=== PATIENT | male | born 1965 | race Two or more races ===

== ENCOUNTER 2020-09-24 09:34 | Outpatient (REF) | payer OTHER, SELFPAY | END 2020-09-24 09:35 | disposition home or self-care (01) | LOC: HO.LAB 09:34 | PROVIDERS: Visit Provider Internal Medicine | DX: Z20.822 Contact with and (suspected) exposure to COVID-19 (principal) | CPT/HCPCS: 36415; C9803; U0003; U0005 ==

== ENCOUNTER 2021-01-18 14:00 | Emergency (ER) | payer OTHER, SELFPAY ==
--- NOTE | 2021-01-20 | ECG_ITS ---
Test Reason : CHEST PAIN Blood Pressure : / mmHG Vent. Rate : 089 BPM Atrial Rate : 089 BPM P-R Int : 146 ms QRS Dur : 092 ms QT Int : 354 ms P-R-T Axes : 019 018 -10 degrees QTc Int : 430 ms Normal sinus rhythm Nonspecific T wave abnormality Abnormal ECG Compared to prior EKG, non specific changes slighlty more prominent in lateral leads. Referred By: Dylan Koo Electronically Signed By:JACKIE AGGARWAL
== END 2021-01-18 18:30 | disposition left against medical advice (07) ==
PROVIDERS: Emergency Provider Emergency Medicine; PCP Internal Medicine
DX: R07.9 Chest pain, unspecified (principal); R03.0 Elevated blood-pressure reading, without diagnosis of hypertension
CPT/HCPCS: 93005; 99283

== ENCOUNTER 2021-03-07 08:46 | Outpatient (REF) | payer OTHER, SELFPAY | END 2021-03-07 08:47 | disposition home or self-care (01) | LOC: HO.LAB 08:46 | PROVIDERS: PCP Internal Medicine; Visit Provider Internal Medicine | DX: Z20.822 Contact with and (suspected) exposure to COVID-19 (principal) | CPT/HCPCS: C9803; U0003; U0005 ==

== ENCOUNTER 2021-09-09 08:25 | Outpatient (REF) | payer OTHER, SELFPAY ==
[2021-09-09 08:53] LABS: MANUAL DIFF FLAG NO
[2021-09-09 09:58] LABS: Appearance Urine CLEAR; Color Urine STRAW; Glucose Urine UA >=1000 MG/DL (NEG); Leukocyte Esterase Urine NEG (NEG); Nitrite Urine NEG (NEG); Specific Gravity - Urine 1.015 (1.005-1.025); Urine Blood NEG (NEG); Urine Ketones NEG (NEG); Urine Protein NEG (NEG-TRACE)
[2021-09-09 10:24] LABS: Basophils Percent Auto 0.4 % (0-2); Eosinophils Percent Auto 0.6 % (0-4); Hematocrit 43.6 % (42.0-52.0); Hemoglobin 14.6 g/dl (14.0-18.0); Imm Gran Abs Auto 0.03 X10*3/uL (0.00-0.03); Imm Gran Pct Auto 0.4 % (0.0-0.4); Lymphocytes Absolute Auto 1.8 X10*3/uL (1.2-4.9); Lymphocytes Percent Auto 25.1 % (20-40); Mean Corpuscular HGB Conc 33.5 g/dl (31.0-36.0); Mean Corpuscular Hemoglobin 28.9 pg (27.0-33.0); Mean Corpuscular Volume 86.3 fL (80.0-98.0); Mean Platelet Volume 12.1 fL (9.4-12.4); Monocytes Absolute Auto 0.7 X10*3/uL (0.1-1.2); Monocytes Percent Auto 9.4 % (2-11); Neutrophils Absolute Auto 4.6 x10*3/uL (2.0-8.3); Neutrophils Percent Auto 64.1 % (45-73); Platelet Count 221 X10*3/uL (160-400); Red Blood Count 5.05 X10*6/uL (4.60-5.80); Red Cell Distribution Width 12.5 % (11.0-16.0); White Blood Count 7.1 X10*3/uL (4.8-10.8)
[2021-09-09 11:02] LABS: TSH reflex Free T4 1.69 uIU/mL (0.32-4.0); Vitamin D 25-OH Total 13.2 ng/mL (>30)
[2021-09-09 11:09] LABS: Creatinine Urine 78.55 mg/dL; Microalbum/Creatinine Ratio Ur 24.1 ug/mg cr
[2021-09-09 11:11] LABS: Alanine Aminotransferase 15 U/L (0-40); Albumin Level 4.2 g/dL (3.5-5.0); Alkaline Phosphatase 100 U/L (39-117); Anion Gap 12 (12-20); Aspartate Amino Transferase 13 U/L (5-37); Bilirubin Total 0.4 mg/dL (0.0-1.0); Blood Urea Nitrogen 12 mg/dL (9-16); Calcium 9.3 mg/dL (8.4-10.2); Carbon Dioxide 26 mmol/L (22-29); Chloride 102 mmol/L (96-108); Cholesterol 180 mg/dL; Estimated Glomerular Filt Rate > 60; Glucose Fasting 263 mg/dL (60-99); HDL Cholesterol 34 mg/dL; LDL Cholesterol Calculated 122 mg/dl; Potassium 4.1 mmol/L (3.3-5.1); Sodium 136 mmol/L (135-145); Total Protein 7.5 g/dL (6.5-8.0); Triglycerides 120 mg/dL
[2021-09-09 11:42] LABS: RBC Urine 0 /HPF (0); Squamous Epithelial Cell Urine TRACE /LPF
[2021-09-11 04:22] LABS: C Peptide 1.29 ng/mL (0.80-3.85)
== END 2021-09-09 08:26 | disposition home or self-care (01) ==
LOC: HO.LAB 08:25
PROVIDERS: PCP Internal Medicine; Visit Provider Internal Medicine
DX: E11.65 Type 2 diabetes mellitus with hyperglycemia (principal); N52.1 Erectile dysfunction due to diseases classified elsewhere; I10 Essential (primary) hypertension; E78.00 Pure hypercholesterolemia, unspecified; E78.5 Hyperlipidemia, unspecified; E55.9 Vitamin D deficiency, unspecified; H53.8 Other visual disturbances; M54.32 Sciatica, left side
CPT/HCPCS: 36415; 80053; 80061; 81001; 82043; 82306; 84443; 84681; 85025

== ENCOUNTER → 2021-10-29 12:55 | Outpatient (BNVA) | payer OTHER, SELFPAY | PROVIDERS: PCP Internal Medicine; Visit Provider Internal Medicine Endocrinology, Diabetes & Metabolism | DX: E11.65 Type 2 diabetes mellitus with hyperglycemia (principal); Z79.84 Long term (current) use of oral hypoglycemic drugs | CPT/HCPCS: 82947; 83036; 99202 ==

== ENCOUNTER → 2021-10-30 12:09 | Outpatient (BNVA) | payer OTHER, SELFPAY | PROVIDERS: PCP Internal Medicine; Visit Provider Registered Nurse Diabetes Educator | DX: E11.65 Type 2 diabetes mellitus with hyperglycemia (principal); Z71.89 Other specified counseling | CPT/HCPCS: 99212 ==

== ENCOUNTER 2022-04-14 11:10 | Emergency (ER) | payer OTHER, SELFPAY ==
[2022-04-14 11:13] VITALS: BP 147/95; PULSE 109; RESP 16; TEMP 36.6; O2SAT 97; BMI 26.5
--- NOTE | 2022-04-14 11:48 | ED.GENADULT ---
HPI - General Adult General Chief complaint: General Medical Stated complaint: Cyst? 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 Patient states that over the last 2 days he has had a cyst on the back of his head that seems to be getting worse. Patient denies any dizziness, lightheadedness, abdominal pain, nausea, vomiting, fever, chills, blurry vision, double vision, loss of vision, chest pain, difficulty breathing, shortness of breath, back pain, night sweats, pain with urination, increased urinary frequency, increased urinary urgency, blood in his urine or stool, syncope or a near syncopal episode, recent trauma or falls, bowel incontinence, bladder incontinence, bowel retention, bladder retention, or any other complaints at this time. Onset (ago): day(s) (2) Location: head Radiation: non-radiation Severity: mild Severity scale (1-10): 2 Quality: dull Relieving factors: none Exacerbating factors: none Associated symptoms: denies other symptoms Treatments prior to arrival: none Related Data Previous Rx's Medication Instructions Recorded cholecalciferol (vitamin D3) 50 50 mcg PO DAILY 90 days #90 caps 09/09/21 mcg (2,000 unit) capsule blood sugar diagnostic (FreeStyle #100 ea 10/29/21 Lite Strips) blood-glucose meter (FreeStyle #1 ea 10/29/21 [place] Lite kit) insulin glargine 100 unit/mL (3 20 unit (0.2 mL) subcut DAILY #15 10/29/21 mL) subcutaneous pen (Lantus mL Solostar U-100 Insulin) pen needle, diabetic 32 gauge x #50 ea 10/29/2132 (BD Ultra-Fine [place] Pen Needle) metformin 1,000 mg tablet 1,000 mg PO BID #60 tabs 03/05/22 atorvastatin 10 mg tablet 10 mg PO BEDTIME 90 days #90 tabs 03/09/22 pioglitazone 30 mg tablet 30 mg PO DAILY 90 days #90 tabs 03/09/22 cephalexin 500 mg capsule 500 mg PO Q6H 7 days #28 caps 04/14/22 Allergies Allergy/AdvReac Type Severity Reaction Status Date / Time No Known Allergies Allergy Verified 04/14/22 11:12 [No Known Allergies*] Review of Systems Constitutional: Constitutional: Reports no additional constitutional complaints, Denies chills, Denies fever(s) and Denies night sweats Eyes: Eyes: Reports no additional eye complaints, Denies blurry vision, Denies change in vision, Denies diplopia, Denies eye discharge, Denies loss of vision and Denies eye pain ENT: Denies dizziness Cardiovascular: Cardiovascular: Reports no additional cardiovascular complaints, Denies chest pain, Denies lightheadedness, Denies Loss of Consciousness and Denies dyspnea Respiratory: Respiratory: Reports no additional respiratory complaints and Denies dyspnea Gastrointestinal: Gastrointestinal: Reports no additional gastrointestinal complaints, Denies abdominal pain, Denies melena, Denies hematochezia, Denies change in bowel habits and Denies change in stool character Genitourinary: Genitourinary: Reports no additional male genitourinary complaints, Denies hematuria, Denies oliguria, Denies difficulty urinating, Denies dysuria, Denies urinary frequency, Denies urinary hesitancy, Denies urinary incontinence and Denies urinary urgency Musculoskeletal: Musculoskeletal: Reports no additional musculoskeletal complaints, Denies numbness and Denies tingling Integumentary/Breasts: Comments: growth on the back of his head Neurologic: Denies dizziness, Denies loss of vision, Denies numbness and Denies tingling Psychiatric: Psychiatric: Reports no additional psychiatric complaints Endocrine: Endocrine: Reports no additional endocrine complaints Hematologic/Lymphatic: Hematologic/Lymphatic: Reports no additional hematologic/lymphatic complaints Allergic/Immunologic: Allergic/Immunologic: Reports no additional allergic/immunologic complaints [facility] Past Medical History Attestation statement: The following information was validated with the patient. Source: old records reviewed Medical History Erectile dysfunction associated with type 2 diabetes mellitus Hypovitaminosis D Left sciatic nerve pain Overweight (BMI 25.0-29.9) Pure hypercholesterolemia Type 2 diabetes mellitus with hyperglycemia Surgical History No pertinent past surgical history Family History Family History Brother Diabetes mellitus Sister Diabetes mellitus Mother Diabetes mellitus Father Medical history unknown Social History Social History Housing: House Alcohol intake: current Alcohol intake frequency: a few times a month Alcohol type: beer Patient Tobacco Use Status: Never used Tobacco e-Cigarette/Vaping Use: Never Used Second Hand Smoke Exposure: Yes Advance Directives: No Advance Directives Information Provided: Yes service: No Current occupational status: disabled Physical Exam ED Vital Signs: Vital Signs - 24 hr 04/14/22 11:13 Temperature 97.8 F Pulse Rate 109 H Respiratory Rate 16 Blood Pressure 147/95 H Pulse Oximetry 97 Oxygen Delivery Method Room Air BMI result Body Mass Index 26.5 Const General: cooperative, no acute distress, alert and awake Nutritional Appearance: well nourished Orientation/consciousness: patient oriented x3 Limitations: no limitations HENMT Head: Yes normal to inspection and Yes atraumatic Ears: hearing grossly normal bilaterally and external ears normal General nose exam: Normal external nose present, no nasal discharge noted and no epistaxis Face and sinus: Yes normal facial exam, No abrasion and No laceration Mouth: Normal oral and palatal mucosa present, no drooling and no muffled voice Eyes General: appearance normal, both eyes and all related structures Periorbital: periorbital findings normal Eyelids: Yes eyelids normal Conjunctivae: conjunctivae normal Pupils: Equal, round and reactive pupils present EOM: EOMs intact bilaterally Neck Neck: Yes normal visual inspection, Yes full ROM and Yes no lymphadenopathy Chest Chest palpation & inspection: normal inspection of the chest Resp Effort & Inspection: normal respiratory effort and able to speak in complete sentences Auscultation: clear to auscultation bilaterally Cardio Rate: regular rate Rhythm: regular rhythm GI Inspection: Yes normal to inspection Palpation (GI): Soft to palpation, not firm, nontender and no guarding Skin Other: small, firm growth to the back of his head, no fluctuance, surrounding warmth and erythema Neuro General: patient oriented x3 and moves all extremities Cranial nerves: Yes Equal, round and reactive pupils present Cognition (Neuro): normal cognition Motor exam (neuro): 5/5 motor strength present throughout Sensory Exam: Normal double simultaneous stimulation for sensation Coordination: [id number] test normal Extrem General: Yes normal to inspection, Yes full ROM and Yes capillary refill normal Psych Appearance: grossly normal Mental Status: mental status grossly normal Affect: normal affect Attitude: cooperative Thought process: Normal thought process present Thought content: Normal thought content present Insight: Good insight present (Psych) Medical Decision Making MDM Narrative Medical decision making narrative: Patient is a 56 year old male presenting to the emergency department today with a growth to the back of his head. Patient's physical exam showed a small, firm growth, to the posterior scalp with surrounding erythema and warmth. I explained my physical exam findings to the patient. I answered all questions asked by the patient. I explained to the patient that the abscessed area does not have fluctuance and is not ready to be opened at this time. I recommended the patient apply warm compresses to the area and follow up with a general surgeon. I stressed the importance of the patient taking his medication as prescribed. I stressed the importance of the patient following up with his primary care provider and a general surgeon. I stressed the importance of the patient returning to the emergency department immediately if his symptoms were to worsen or if he were to develop any dizziness, shortness of breath, difficulty breathing, chest pain, blurry vision, loss of vision, nausea, vomiting, abdominal pain, fever, chills, back pain, or any other complaints. Patient verbalized agreement and understanding with this treatment plan and discharge. Differential Diagnosis Differential Diagnosis: abscess Medical Records Medical records reviewed: Yes I reviewed the patient's medical records. Discharge Plan Discharge Clinical Impression: Abscess Patient Disposition: Home, Self-Care Instructions: Abscess (ED) Additional Instructions: Apply warm compresses to the area. Follow up with your primary care provider and a general surgeon. Return to the emergency department immediately if your symptoms worsen or if you develop any dizziness, shortness of breath, difficulty breathing, chest pain, blurry vision, loss of vision, nausea, vomiting, abdominal pain, fever, chills, back pain, or any other complaints. Aplicar compresas tibias en la hai. Steffi un seguimiento con toledo proveedor de atenci?n primaria y un cirujano general. Regrese a la nikkie de emergencias de inmediato si francisco s?ntomas empeoran o si presenta mareos, dificultad para respirar, dolor de pecho, visi?n borrosa, p?rdida de la visi?n, n?useas, v?mitos, dolor abdominal, fiebre, escalofr?os, dolor de espalda o cualquier otras quejas. Prescriptions: New cephalexin 500 mg capsule 500 mg PO Q6H 7 Days Qty: 28 0RF No Action metformin 1,000 mg tablet 1,000 mg PO BID Qty: 60 0RF pioglitazone 30 mg tablet 30 mg PO DAILY 90 Days Qty: 90 1RF atorvastatin 10 mg tablet 10 mg PO BEDTIME 90 Days Qty: 90 1RF cholecalciferol (vitamin D3) 50 mcg (2,000 unit) capsule 50 mcg PO DAILY 90 Days Qty: 90 3RF (DME) blood-glucose meter [FreeStyle [place] Lite] Kit See Rx Instructions .Route Qty: 1 0RF Rx Instructions: As directed (DME) FreeStyle Lite Strips Strip See Rx Instructions .Route Qty: 100 0RF Rx Instructions: As directed 4 X day Lantus Solostar U-100 Insulin 100 unit/mL (3 mL) insulin pen 20 unit subcut DAILY Qty: 15 5RF (DME) pen needle, diabetic [BD Ultra-Fine Mercedez Pen Needle] 32 gauge x 5/32 needle See Rx Instructions .Route Qty: 50 4RF Rx Instructions: As directed Referrals: [facility] [place] [facility] [Provider Group] Mahesh Mari MD [Primary Care Provider] - Interventions: ED Discharge Assessment Last Done: 04/14/22 12:09 Discharge Date/Time: 04/14/22 12:11 Print Language: Portuguese
== END 2022-04-14 12:11 | disposition home or self-care (01) ==
PROVIDERS: Emergency Provider Emergency Medicine; PCP Internal Medicine
DX: L02.811 Cutaneous abscess of head [any part, except face] (principal); Z79.899 Other long term (current) drug therapy
CPT/HCPCS: 99282; 99283

== ENCOUNTER 2022-05-07 20:41 | Inpatient (IN) | payer OTHER, SELFPAY ==
--- NOTE | ~2022-05-07 | CT_ITS ---
EXAMINATION: CT SOFT TISSUE NECK WITH CONTRAST CLINICAL INFORMATION: Abscess tube COMPARISON: None TECHNIQUE: Following the intravenous administration of 60 mL of Omnipaque 350 intravenous contrast, helical imaging was performed in the axial plane with generation of coronal and sagittal reformatted images. This CT examination was performed using dose optimization techniques as appropriate, variously including the following: *Automated exposure control *Adjustment of mA and/or kV according to patient size (this includes techniques or standardized protocols for targeted exams where dose is matched to indication/reason for exam; i.e. extremities or head) *Use of iterative reconstruction technique DLP: 616 mGy-cm FINDINGS: There is a 5.6 x 3.8 x 5 x 1 cm collection within the cutaneous fat mostly superficial to the posterior neck musculature the suboccipital region. The superior most aspect of the trapezius musculature may be involved with associated myositis. There is obscuration of fat planes between the trapezius musculature and the subjacent splenius capitis and semispinalis capitis, however no involvement of the deeper fat planes or musculature. There is surrounding fat stranding and overlying skin thickening. No cervical adenopathy is identified. The parotid glands are homogeneous in attenuation. The submandibular glands are normal. No contour abnormality or pathologic enhancement is seen within the oral cavity or pharyngeal mucosal space. The laryngeal structures are normal. The parapharyngeal fat is preserved. The carotid sheath vasculature opacify normally. No retropharyngeal fluid collection is seen. The thyroid gland is normal. The superior mediastinum is unremarkable. The lung apices are clear. The mastoid air cells and visualized portions of the paranasal sinuses are well-aerated. The temporomandibular joints are normal. No periapical disease is identified. No osseous abnormalities are seen. The imaged portions of the brain parenchyma are unremarkable. CT/CT soft tissue neck w IV con IMPRESSION: * There is a 5.6 cm abscess, centered within the fat of the posterior neck in the midline suboccipital region. There may be myositis of the superior aspect of the bilateral trapezius musculature. Mild fat stranding/edema in the fat planes between the trapezius scaphoid is and semispinalis capitis, however no deeper involvement of the paraspinal musculature. * No evidence of paraspinal or epidural infection.
[2022-05-07 20:44] VITALS: BP 168/100; PULSE 87; RESP 18; TEMP 36.9; O2SAT 97; BMI 25.8
[2022-05-07 21:11] LABS: MANUAL DIFF FLAG NO
[2022-05-07 21:12] LABS: Basophils Percent Auto 0.4 % (0-2); Eosinophils Absolute Auto 0.1 X10*3/uL (0.0-0.4); Eosinophils Percent Auto 0.9 % (0-4); Hematocrit 40.7 % (42.0-52.0); Hemoglobin 14.3 g/dl (14.0-18.0); Imm Gran Abs Auto 0.04 X10*3/uL (0.00-0.03); Imm Gran Pct Auto 0.4 % (0.0-0.4); Lymphocytes Absolute Auto 1.6 X10*3/uL (1.2-4.9); Lymphocytes Percent Auto 17.3 % (20-40); Mean Corpuscular HGB Conc 35.1 g/dl (31.0-36.0); Mean Corpuscular Hemoglobin 29.6 pg (27.0-33.0); Mean Corpuscular Volume 84.3 fL (80.0-98.0); Mean Platelet Volume 11.1 fL (9.4-12.4); Neutrophils Absolute Auto 6.3 x10*3/uL (2.0-8.3); Platelet Count 206 X10*3/uL (160-400); Red Blood Count 4.83 X10*6/uL (4.60-5.80); Red Cell Distribution Width 11.6 % (11.0-16.0)
[2022-05-07 21:26] LABS: Lactic Acid 0.9 mmol/L (0.5-2.0)
[2022-05-07 21:30] LABS: Alanine Aminotransferase 12 U/L (0-40); Albumin Level 3.9 g/dL (3.5-5.0); Alkaline Phosphatase 106 U/L (39-117); Anion Gap 16 (12-20); Aspartate Amino Transferase 12 U/L (5-37); Bilirubin Total 0.5 mg/dL (0.0-1.0); Blood Urea Nitrogen 13 mg/dL (9-16); Calcium 9.4 mg/dL (8.4-10.2); Carbon Dioxide 24 mmol/L (22-29); Chloride 99 mmol/L (96-108); Creatinine Clr Calc Pharmacy 96.7; Estimated Glomerular Filt Rate > 60; Glucose Random 307 mg/dL (60-115); Potassium 3.8 mmol/L (3.3-5.1); Sodium 135 mmol/L (135-145); Total Protein 7.1 g/dL (6.5-8.0)
--- NOTE | 2022-05-07 23:26 | ED_ITS ---
HPI - Skin/Abscess/Foreign Bdy General Chief complaint: Skin/Abscess/Foreign Body Stated complaint: abscess Source: patient Mode of arrival: ambulatory Limitations: language barrier History of Present Illness HPI narrative: A 57-year-old male presents with worsening abscess to the back of his neck. Noted smaller abscess approximately a month and half ago, was evaluated on 04/14/2022 and given antibiotics with poor effect. Patient states that the swelling and pain never went away and has gotten worse. He does report some chills, fatigue, and states that the pain radiates down both sides of his neck into his arms. Does not report fevers, loss of bowel or bladder, denies headache, nausea, vomiting, diarrhea, edema, loss of balance, or changes in vision. MD complaint: abscess/boil Onset (ago): month(s) (2) Tetanus up to date: yes Location: neck Severity: moderate Severity scale (1-10): 7 Quality: aching and constant Pain Consistency: constant Relieving factors: none Exacerbating factors: palpation and movement Context: recent antibiotic Associated symptoms: chills Treatments prior to arrival: antibiotic Related Data Previous Rx's Medication Instructions Recorded cholecalciferol (vitamin D3) 50 50 mcg PO DAILY 90 days #90 caps 09/09/21 mcg (2,000 unit) capsule blood sugar diagnostic (FreeStyle #100 ea 10/29/21 Lite Strips) blood-glucose meter (FreeStyle #1 ea 10/29/21 [place] Lite kit) insulin glargine 100 unit/mL (3 20 unit (0.2 mL) subcut DAILY #15 10/29/21 mL) subcutaneous pen (Lantus mL Solostar U-100 Insulin) pen needle, diabetic 32 gauge x #50 ea 10/29/21 (BD Ultra-Fine [place]ez Pen Needle) metformin 1,000 mg tablet 1,000 mg PO BID #60 tabs 03/05/22 atorvastatin 10 mg tablet 10 mg PO BEDTIME 90 days #90 tabs 03/09/22 pioglitazone 30 mg tablet 30 mg PO DAILY 90 days #90 tabs 03/09/22 cephalexin 500 mg capsule 500 mg PO Q6H 7 days #28 caps 04/14/22 Allergies Allergy/AdvReac Type Severity Reaction Status Date / Time No Known Allergies Allergy Verified 04/14/22 11:12 [No Known Allergies*] Review of Systems Review of Systems: Constitutional: No Fever, No Chills ENT/Mouth: No Ear Pain, No Hoarseness, No sore throat Eyes: No Eye Pain, No Swelling, No Redness, No Foreign Body Cardiovascular: No Chest Pain, No SOB Respiratory: No Cough, No Dyspnea Gastrointestinal: No Nausea, No Vomiting, No Diarrhea, No abdominal Pain Genitourinary: No Dysuria, No Hematuria Musculoskeletal: No joint pain, No Myalgias, No Joint Swelling Skin: Positive abscess to the back of his neck, No Skin lacerations, No rash Neuro: No Weakness, No Numbness, No Paresthesias, No Loss of Consciousness, No Dizziness, No Headache Psych: No Anxiety/Panic, No Depression Heme/Lymph: no easy bruising, no Lymphadenopathy Endocrine: No Polyuria, No Polydipsia Yes all other systems are reviewed and are negative [facility] Past Medical History Attestation statement: The following information was validated with the patient. Source: old records reviewed Medical History Erectile dysfunction associated with type 2 diabetes mellitus Hypovitaminosis D Left sciatic nerve pain Overweight (BMI 25.0-29.9) Pure hypercholesterolemia Type 2 diabetes mellitus with hyperglycemia Surgical History No pertinent past surgical history Family History Family History Brother Diabetes mellitus Sister Diabetes mellitus Mother Diabetes mellitus Father Medical history unknown Social History Social History Housing: House Alcohol intake: former Patient Tobacco Use Status: Never used Tobacco e-Cigarette/Vaping Use: Never Used Second Hand Smoke Exposure: Yes Use of substances other than those prescribed or required for medical reasons: No Advance Directives: Yes Advance Directives Information Provided: No Advance Directives on File: No service: No Current occupational status: disabled Physical Exam Vital Signs: Vital Signs: Last Vital Signs Temp 97.5 F 05/07/22 23:31 Pulse 75 05/08/22 00:55 Resp 18 05/08/22 00:55 BP 140/79 H 05/08/22 00:55 Pulse Ox 98 05/08/22 00:55 O2 Del Method 05/08/22 00:55 BMI result Body Mass Index 25.8 Appearance: Alert. Oriented X3. No acute distress. Eyes: Pupils equal, round and reactive to light. ENT: Pharynx normal. Neck: Normal inspection. Neck supple. CVS: Normal heart rate and rhythm. Pulses normal. Respiratory: No respiratory distress. Breath sounds normal. Abdomen: Soft and nontender. Skin: 10 cm x 7 cm area of warmth, induration erythema to the back of the neck Extremities: No lower extremity edema. Full range of motion. Strength 5/5 to all extremities. Brisk capillary refill. Equal pulses to all extremities. Neuro: No motor deficit. No sensory deficit. Cranial nerves 2-12 intact. Course Course Course Narrative: 57-year-old male presents with 10 cm x 7 cm area of erythema induration and warmth the back of his neck consistent with abscess. He was treated with clindamycin, Flagyl, and Keflex over the past month with poor effect. Patient states that the swelling and pain has increased and has never really resolved. He does have an appointment with Dr. Brock tomorrow, however he feels that his pain and swelling is so intense that he needed evaluation tonight. He states to be fatigued because of the pain and it is difficult for him to sleep. He does not have any focal neuro deficits, has full range of motion to all extremities, and has relatively normal lab panel. Will order CT scan of soft tissue neck, start vancomycin, ceftriaxone, give morphine and Zofran. Patient is an insulin- dependent diabetic. 00:30 lactic acid 1.3, no other indication of organ dysfunction. Patient is not septic and does not fit SIRS. 01:30 CT scan indicates 5.6 cm abscess with myositis. Dr. Roberson will I&D this abscess. Patient will be admitted to hospitalist for admission for cellulitis, myositis, and abscess. Consultations Consultation #1: Bri Time: 01:43 MDM - Skin/Abscess/Foreign Bdy MDM Narrative Medical decision making narrative: Myositis Differential Diagnosis Differential diagnosis: Likely abscess of skin or subcutaneous tissue and cellulitis Medical Records Attestation: I reviewed the patient's medical records. Lab Data Attestation: I reviewed the patient's lab results. Result diagrams: 05/07/22 21:03 05/07/22 21:03 Labs: Lab Results 05/07/22 05/07/22 05/07/22 Range/Units 21:03 21:03 21:03 WBC 9.0 (4.8-10.8) X10*3/uL RBC 4.83 (4.60-5.80) X10*6/uL Hgb 14.3 (14.0-18.0) g/dl Hct 40.7 L (42.0-52.0) % MCV 84.3 (80.0-98.0) fL MCH 29.6 (27.0-33.0) pg MCHC 35.1 (31.0-36.0) g/dl RDW 11.6 (11.0-16.0) % Plt Count 206 (160-400) X10*3/uL MPV 11.1 (9.4-12.4) fL Immature Gran % (Auto) 0.4 (0.0-0.4) % Neut % (Auto) 70.0 (45-73) % Lymph % (Auto) 17.3 L (20-40) % [place] % (Auto) 11.0 (2-11) % Eos % (Auto) 0.9 (0-4) % Baso % (Auto) 0.4 (0-2) % Lymph # (Auto) 1.6 (1.2-4.9) X10*3/uL [place] # (Auto) 1.0 (0.1-1.2) X10*3/uL Eos # (Auto) 0.1 (0.0-0.4) X10*3/uL Baso # (Auto) 0.0 (0.0-0.2) X10*3/uL Abs Immat Gran (auto) 0.04 H (0.00-0.03) X10*3/uL Absolute Neuts (auto) 6.3 (2.0-8.3) x10*3/uL Absolute Nucleated RBC 0.000 (0.0-0.012) X10*3/uL Nucleated RBC % (auto) 0.0 (0.0-0.2) /100WBC PT (10.0-13.1) SEC INR (0.9-1.1) Sodium 135 (135-145) mmol/L Potassium 3.8 (3.3-5.1) mmol/L Chloride 99 (96-108) mmol/L Carbon Dioxide 24 (22-29) mmol/L Anion Gap 16 (12-20) BUN 13 (9-16) mg/dL Creatinine 0.88 (0.5-1.4) mg/dL Estim Creat Clear Calc 96.7 Estimated GFR > 60 Random Glucose 307 H (60-115) mg/dL Lactic Acid 0.9 (0.5-2.0) mmol/L Calcium 9.4 (8.4-10.2) mg/dL Total Bilirubin 0.5 (0.0-1.0) mg/dL AST 12 (5-37) U/L ALT 12 (0-40) U/L Alkaline Phosphatase 106 (39-117) U/L Total Protein 7.1 (6.5-8.0) g/dL Albumin 3.9 (3.5-5.0) g/dL COVID-19 (BRIANNA) (Negative) COVID-19 Clin Com 05/07/22 05/07/22 05/07/22 Range/Units 23:59 23:59 23:59 WBC (4.8-10.8) X10*3/uL RBC (4.60-5.80) X10*6/uL Hgb (14.0-18.0) g/dl Hct (42.0-52.0) % MCV (80.0-98.0) fL MCH (27.0-33.0) pg MCHC (31.0-36.0) g/dl RDW (11.0-16.0) % Plt Count (160-400) X10*3/uL MPV (9.4-12.4) fL Immature Gran % (Auto) (0.0-0.4) % Neut % (Auto) (45-73) % Lymph % (Auto) (20-40) % [place] % (Auto) (2-11) % Eos % (Auto) (0-4) % Baso % (Auto) (0-2) % Lymph # (Auto) (1.2-4.9) X10*3/uL [place] # (Auto) (0.1-1.2) X10*3/uL Eos # (Auto) (0.0-0.4) X10*3/uL Baso # (Auto) (0.0-0.2) X10*3/uL Abs Immat Gran (auto) (0.00-0.03) X10*3/uL Absolute Neuts (auto) (2.0-8.3) x10*3/uL Absolute Nucleated RBC (0.0-0.012) X10*3/uL Nucleated RBC % (auto) (0.0-0.2) /100WBC PT 12.2 (10.0-13.1) SEC INR 1.1 (0.9-1.1) Sodium (135-145) mmol/L Potassium (3.3-5.1) mmol/L Chloride (96-108) mmol/L Carbon Dioxide (22-29) mmol/L Anion Gap (12-20) BUN (9-16) mg/dL Creatinine (0.5-1.4) mg/dL Estim Creat Clear Calc Estimated GFR Random Glucose (60-115) mg/dL Lactic Acid 1.3 (0.5-2.0) mmol/L Calcium (8.4-10.2) mg/dL Total Bilirubin (0.0-1.0) mg/dL AST (5-37) U/L ALT (0-40) U/L Alkaline Phosphatase (39-117) U/L Total Protein (6.5-8.0) g/dL Albumin (3.5-5.0) g/dL COVID-19 (BRIANNA) Negative (Negative) COVID-19 Clin Com See Note Imaging Data CT soft tissue neck: Attestation: I personally reviewed and interpreted this imaging study as follows: Radiologist's impression: FINDINGS: There is a 5.6 x 3.8 x 5 x 1 cm collection within the cutaneous fat mostly superficial to the posterior neck musculature the suboccipital region. The superior most aspect of the trapezius musculature may be involved with associated myositis. There is obscuration of fat planes between the trapezius musculature and the subjacent splenius capitis and semispinalis capitis, however no involvement of the deeper fat planes or musculature. There is surrounding fat stranding and overlying skin thickening. No cervical adenopathy is identified. The parotid glands are homogeneous in attenuation. The submandibular glands are normal. No contour abnormality or pathologic enhancement is seen within the oral cavity or pharyngeal mucosal space. The laryngeal structures are normal. The parapharyngeal fat is preserved. The carotid sheath vasculature opacify normally.? No retropharyngeal fluid collection is seen. The thyroid gland is normal. The superior mediastinum is unremarkable. The lung apices are clear. The mastoid air cells and visualized portions of the paranasal sinuses are well-aerated. The temporomandibular joints are normal. No periapical disease is identified. No osseous abnormalities are seen. The imaged portions of the brain parenchyma are unremarkable. CT/CT soft tissue neck w IV con IMPRESSION: *? There is a 5.6 cm abscess, centered within the fat of the posterior neck in the midline suboccipital region. There may be myositis of the superior aspect of the bilateral trapezius musculature. Mild fat stranding/edema in the fat planes between the trapezius scaphoid is and semispinalis capitis, however no deeper involvement of the paraspinal musculature. *? No evidence of paraspinal or epidural infection. Discharge Plan Discharge Clinical Impression: Abscess of skin or subcutaneous tissue, Cellulitis, Myositis Patient Disposition: Admitted As Inpatient
[2022-05-07 23:31] VITALS: BP 160/79; PULSE 88; RESP 18; TEMP 36.4; O2SAT 95
[2022-05-08] VITALS (9 sets, daily range): BP systolic 123–162; BP diastolic 67–94; PULSE 72–88; RESP 15–19; TEMP 36.2–37.1; O2SAT 94–98
[2022-05-08] MEDS: ondansetron HCL 4 MG/2 ML VIAL IVPUSH (00:12)
[2022-05-08] MEDS: Morphine Sulfate 4 MG/ML CARTRIDGE IVPUSH (00:12)
[2022-05-08 00:17] LABS: Lactic Acid 1.3 mmol/L (0.5-2.0)
[2022-05-08 00:24] LABS: INTERNATIONAL NORM RATIO 1.1 (0.9-1.1); Prothrombin Time 12.2 SEC (10.0-13.1)
[2022-05-08 00:26] LABS: COVID-19 Test Negative (Negative)
[2022-05-08] MEDS: iohexoL 350 MG/ML 100 ML INFUS..BTL 60 ML IV (00:37)
[2022-05-08] MEDS: cefTRIAXone sodium 1 GM in 0.9 % Sodium Chloride 50 ML IV (00:50)
[2022-05-08] MEDS: 0.9 % Sodium Chloride 1,000 ML 999 ML IVCONT (00:50)
[2022-05-08] MEDS: Lidocaine HCl 1 % MPF 2 ML VIAL 4 ML INFILTRATI (01:57)
--- NOTE | 2022-05-08 05:25 | P.HPHOSP_ITS ---
History of Present Illness Date of Service: 05/08/22 Chief Complaint: Swelling on the back of the neck 57-year-old male with a past medical history of hypertension, hyperlipidemia, diabetes presented to the hospital today with a chief complaint of swelling on the back of the neck. Patient mentioned that about 2 months ago he had a head CT and followed by he developed a small 1 cm size swelling which has been gradually increasing in size; came to the hospital about a month ago and was noted to have small hard swelling on the base of the occiput-appears call swelling; patient was given antibiotics and subsequently sent him home. Mentioned that he finished a course of antibiotics but the swelling has been gradually worsening. Denies any fevers. Swelling is currently 7-8 cm in size, causing pain and decreased neck movement. Denies any chest pain or palpitations. Denies any headaches, numbness tingling, blurry visions. Denies any nausea vomiting or diarrhea. Denies any urinary symptoms. Review of all other systems is negative except mentioned above ER course: Per ER team patient noted to have swelling on the base of the occiput, imaging showed abscess-status post I&D in the ER. Given IV antibiotics. Also concern for possible myositis. Admitted to the hospital for further management PMFSH Medical History Erectile dysfunction associated with type 2 diabetes mellitus Hypovitaminosis D Left sciatic nerve pain Overweight (BMI 25.0-29.9) Pure hypercholesterolemia Type 2 diabetes mellitus with hyperglycemia Family History Brother Diabetes mellitus Sister Diabetes mellitus Mother Diabetes mellitus Father Medical history unknown Surgical History No pertinent past surgical history Social History Housing: House Alcohol intake: former Patient Tobacco Use Status: Never used Tobacco e-Cigarette/Vaping Use: Never Used Second Hand Smoke Exposure: Yes Use of substances other than those prescribed or required for medical reasons: No Advance Directives: Yes Advance Directives Information Provided: No Advance Directives on File: No service: No Current occupational status: disabled Meds Allergies Allergy/AdvReac Type Severity Reaction Status Date / Time No Known Allergies Allergy Verified 04/14/22 11:12 [No Known Allergies*] Active Medications: Current Medications Acetaminophen (Acetaminophen 325 Mg Tablet) 650 mg PO Q6H PRN PRN Reason: Pain, Mild (Pain Scale 1-3) Atorvastatin Calcium (Atorvastatin Calcium 10 Mg Tablet) 10 mg PO BEDTIME [facility] Enoxaparin Sodium (Enoxaparin Sodium 40 Mg/0.4 Ml Syringe) 40 mg SUBCUT Q24H [facility] Hydromorphone HCl (Hydromorphone Hcl 0.5 Mg/0.5 Ml Syringe) 0.5 mg IVPUSH Q4H PRN; Protocol PRN Reason: Breakthrough Pain Melatonin (Melatonin 3 Mg Tablet) 6 mg PO BEDTIME PRN PRN Reason: Insomnia Pharmacy Consult (Consult Rx Vancomycin Dosing) 1 each MISCELLANE DAILY PRN PRN Reason: Consult order Pharmacy Consult (Consult Rx Perform Med Rec) 1 each MISCELLANE ONCE STA Stop: 05/08/22 01:46 Senna (Sennosides 8.6 Mg Tablet) 17.2 mg PO BEDTIME PRN PRN Reason: Constipation Sodium Chloride (0.9 % Sodium Chloride Flush 3 Ml Syringe) 3 ml IVFLUSH QSHIFT [facility] Home Medications Medication Instructions Recorded Confirmed Last Taken Type atorvastatin 10 mg tablet 1 tab PO BEDTIME 05/08/22 05/08/22 Unknown History cholecalciferol (vitamin D3) 50 1 cap PO DAILY 05/08/22 05/08/22 Unknown History mcg (2,000 unit) capsule insulin glargine 100 unit/mL (3 20 unit subcut 05/08/22 Unknown History mL) subcutaneous pen (Lantus Solostar U-100 Insulin) metformin 1,000 mg tablet 1 tab PO BID 05/08/22 05/08/22 Unknown History pioglitazone 30 mg tablet 1 tab PO DAILY 05/08/22 05/08/22 Unknown History Physical Exam Vital Signs and Narrative: Vital Signs: Last Vital Signs Temp 98.6 F 05/08/22 03:36 Pulse 72 05/08/22 03:36 Resp 18 05/08/22 03:36 BP 139/67 05/08/22 03:36 Pulse Ox 96 05/08/22 03:36 O2 Del Method 05/08/22 03:36 BMI result Body Mass Index 25.8 Gen: Appears be in no acute distress HEENT: NCAT, Moist mucosa. Noted to have swelling on the base of the occiput as shown in the picture below. Warm and tender. Neck range of motion limited secondary to the swelling/pain. Pulmonary: Vesicular breath sounds, fair air entry CVS: Normal S1-S2 Abdomen: BS+, Soft, Nontender Extremities: Warm well perfused Neuro: Alert and awake. Oriented x3; nonfocal examination. Results Labs CBC and Chem 7: 05/07/22 21:03 05/07/22 21:03 Labs: Laboratory Results - last 24 hr 05/07/22 05/07/22 05/07/22 21:03 21:03 21:03 MCV 84.3 MCH 29.6 MCHC 35.1 RDW 11.6 Plt Count 206 MPV 11.1 Immature Gran % (Auto) 0.4 Neut % (Auto) 70.0 Lymph % (Auto) 17.3 L Hardy % (Auto) 11.0 Eos % (Auto) 0.9 Baso % (Auto) 0.4 Lymph # (Auto) 1.6 Hardy # (Auto) 1.0 Eos # (Auto) 0.1 Baso # (Auto) 0.0 Abs Immat Gran (auto) 0.04 H Absolute Neuts (auto) 6.3 Absolute Nucleated RBC 0.000 Nucleated RBC % (auto) 0.0 PT INR Anion Gap 16 Estim Creat Clear Calc 96.7 Estimated GFR > 60 Random Glucose 307 H Lactic Acid 0.9 Calcium 9.4 Total Bilirubin 0.5 AST 12 ALT 12 Alkaline Phosphatase 106 Total Protein 7.1 Albumin 3.9 COVID-19 ([facility]) COVID-19 Clin Com 05/07/22 05/07/22 05/07/22 23:59 23:59 23:59 MCV MCH MCHC RDW Plt Count MPV Immature Gran % (Auto) Neut % (Auto) Lymph % (Auto) Hardy % (Auto) Eos % (Auto) Baso % (Auto) Lymph # (Auto) Hardy # (Auto) Eos # (Auto) Baso # (Auto) Abs Immat Gran (auto) Absolute Neuts (auto) Absolute Nucleated RBC Nucleated RBC % (auto) PT 12.2 INR 1.1 Anion Gap Estim Creat Clear Calc Estimated GFR Random Glucose Lactic Acid 1.3 Calcium Total Bilirubin AST ALT Alkaline Phosphatase Total Protein Albumin COVID-19 ([facility]ANNA) Negative COVID-19 Clin Com See Note Imaging Radiologist's Impressions: Impressions Soft Tissue Neck CT 05/08/22 00:30 IMPRESSION: * There is a 5.6 cm abscess, centered within the fat of the posterior neck in the midline suboccipital region. There may be myositis of the superior aspect of the bilateral trapezius musculature. Mild fat stranding/edema in the fat planes between the trapezius scaphoid is and semispinalis capitis, however no deeper involvement of the paraspinal musculature. * No evidence of paraspinal or epidural infection. Assessment and Plan (1) Cellulitis: Status: Acute (2) Abscess of skin or subcutaneous tissue: Status: Acute Plan 57-year-old male with a past medical history of hypertension, hyperlipidemia, diabetes presented to the hospital today with a chief complaint of swelling on the back of the neck. Noted to have cellulitis/abscess. Admitted for further management. Cellulitis/abscess on the posterior neck: Imaging showed 5.6 cm abscess status post I&D in the ER. Continue IV vancomycin and Zosyn General surgery consult Will also consult ID -> symptoms started after head cut-unclear tetanus vaccination status. Will await further input from ID. Pain control History of diabetes: Insulin sliding scale DVT prophylaxis: Lovenox Code status: Full code Quality Stroke Does the patient have a stroke diagnosis?: No VTE Prior VTE?: No VTE Risk Level:: Medical - moderate - high VTE Device Contraindication: Treatment Not Indicated VTE Drug Contraindication: N/A - Med Ordered
[2022-05-08] MEDS: Piperacillin Sodium/Tazobactam 3.375 GM in 0.9 % Sodium Chloride 50 ML IV ×4 (06:21→23:16)
[2022-05-08] MEDS: Enoxaparin Sodium 40 MG/0.4 ML SYRINGE SUBCUT (06:21)
[2022-05-08] MEDS: 0.9 % Sodium Chloride Flush 3 ML SYRINGE IVFLUSH ×2 (07:44→21:03)
[2022-05-08 08:31] LABS: Creatinine Clr Calc Pharmacy 116.6; Estimated Glomerular Filt Rate > 60
--- NOTE | 2022-05-08 08:36 | P.CONGS_ITS ---
History of Present Illness Consult details Consult date: 05/08/22 Narrative: 57-year-old male patient presenting with complaints of pain in the back of his neck. He presents to the emergency department for further evaluation. The lump was 1st identified approximately1.5 months prior. He was started on oral antibiotics if felt the symptoms do not improve with the antibiotics. He pres ents now with a large area of swelling in the posterior neck with associated chills and fatigue. He denies fever nausea, vomiting, diarrhea, constipation. He denies a prior history of surgery in this location. Admitting workup revealed normal WBC. CT of the abdomen and pelvis revealed a large collection of fluid and air in the subcutaneous tissue corresponding to the palpable lump. Findings are consistent with an abscess in the posterior neck. This apparently was incised and drained by the ED physician. Patient reports improvement in the pain. Review of Systems Review of Systems: Yes all other systems are reviewed and are negative ENT: Reports neck pain Musculoskeletal: Musculoskeletal: Reports neck pain Integumentary/Breasts: Skin/Breast: Reports as per HPI and Reports furuncle PMFSH Past Medical History Medical History Erectile dysfunction associated with type 2 diabetes mellitus Hypovitaminosis D Left sciatic nerve pain Overweight (BMI 25.0-29.9) Pure hypercholesterolemia Type 2 diabetes mellitus with hyperglycemia Family History Family History Brother Diabetes mellitus Sister Diabetes mellitus Mother Diabetes mellitus Father Medical history unknown Surgical History Surgical History No pertinent past surgical history Social History Social History Housing: House Alcohol intake: former Patient Tobacco Use Status: Never used Tobacco e-Cigarette/Vaping Use: Never Used Second Hand Smoke Exposure: Yes Use of substances other than those prescribed or required for medical reasons: No Advance Directives: Yes Advance Directives Information Provided: No Advance Directives on File: No service: No Current occupational status: disabled Meds Allergies Allergy/AdvReac Type Severity Reaction Status Date / Time No Known Allergies Allergy Verified 04/14/22 11:12 [No Known Allergies*] Active Medications: Current Medications Acetaminophen (Acetaminophen 325 Mg Tablet) 650 mg PO Q6H PRN PRN Reason: Pain, Mild (Pain Scale 1-3) Atorvastatin Calcium (Atorvastatin Calcium 10 Mg Tablet) 10 mg PO BEDTIME [facility] Enoxaparin Sodium (Enoxaparin Sodium 40 Mg/0.4 Ml Syringe) 40 mg SUBCUT Q24H [facility] Last Admin: 05/08/22 06:21 Dose: 40 mg Hydromorphone HCl (Hydromorphone Hcl 0.5 Mg/0.5 Ml Syringe) 0.5 mg IVPUSH Q4H PRN; Protocol PRN Reason: Breakthrough Pain Piperacillin Sod/Tazobactam (Sod 3.375 gm/ Sodium Chloride) 50 mls @ 100 mls/hr IV Q6H [facility] Last Infusion: 05/08/22 07:43 Dose: Infused Melatonin (Melatonin 3 Mg Tablet) 6 mg PO BEDTIME PRN PRN Reason: Insomnia Pharmacy Consult (Consult Rx Perform Med Rec) 1 each MISCELLANE ONCE STA Stop: 05/08/22 01:46 Senna (Sennosides 8.6 Mg Tablet) 17.2 mg PO BEDTIME PRN PRN Reason: Constipation Sodium Chloride (0.9 % Sodium Chloride Flush 3 Ml Syringe) 3 ml IVFLUSH QSHIFT [facility] Last Admin: 05/08/22 07:44 Dose: 3 ml Home Medications Medication Instructions Recorded Confirmed Last Taken Type atorvastatin 10 mg tablet 1 tab PO BEDTIME 05/08/22 05/08/22 Unknown History cholecalciferol (vitamin D3) 50 1 cap PO DAILY 05/08/22 05/08/22 Unknown History mcg (2,000 unit) capsule insulin glargine 100 unit/mL (3 20 unit subcut 05/08/22 Unknown History mL) subcutaneous pen (Lantus Solostar U-100 Insulin) metformin 1,000 mg tablet 1 tab PO BID 05/08/22 05/08/22 Unknown History pioglitazone 30 mg tablet 1 tab PO DAILY 05/08/22 05/08/22 Unknown History Physical Exam Vital Signs: Vital Signs: Last Vital Signs Temp 98.2 F 05/08/22 07:59 Pulse 84 05/08/22 07:59 Resp 16 05/08/22 07:59 BP 129/79 05/08/22 07:59 Pulse Ox 95 05/08/22 07:59 O2 Del Method 05/08/22 07:59 BMI result Body Mass Index 25.8 Const: General: healthy appearing and comfortable Nutritional Appearance: well nourished Orientation/consciousness: patient oriented x3 Limitations: no limitations Neck: Other: Large bulky dressing over abscess with iodoform packing noted. Surrounding cellulitis/erythema, tender to palpation. Neck images: 1. Site of abscess, status post incision and drainage Chest: Chest palpation & inspection: normal inspection of the chest and no crepitus Resp: Effort & Inspection: normal respiratory effort, no audible wheezes, no cough and no respiratory distress Skin: General skin exam: no rashes or lesions noted Neuro: General: patient oriented x3 Results Labs Result diagrams: 05/07/22 21:03 05/08/22 07:41 Labs: Abnormal lab results 05/07/22 05/07/22 Range/Units 21:03 21:03 Hct 40.7 L (42.0-52.0) % Lymph % (Auto) 17.3 L (20-40) % Abs Immat Gran (auto) 0.04 H (0.00-0.03) X10*3/uL Random Glucose 307 H (60-115) mg/dL Short CBC 05/07/22 Range/Units 21:03 WBC 9.0 (4.8-10.8) X10*3/uL Hgb 14.3 (14.0-18.0) g/dl Hct 40.7 L (42.0-52.0) % Plt Count 206 (160-400) X10*3/uL BMP 05/07/22 05/08/22 21:03 07:41 Sodium 135 Potassium 3.8 Chloride 99 Carbon Dioxide 24 BUN 13 Creatinine 0.88 0.73 Calcium 9.4 Liver Function 05/07/22 Range/Units 21:03 Total Bilirubin 0.5 (0.0-1.0) mg/dL AST 12 (5-37) U/L ALT 12 (0-40) U/L Alkaline Phosphatase 106 (39-117) U/L Albumin 3.9 (3.5-5.0) g/dL All other labs normal. Assessment and Plan (1) Abscess of skin or subcutaneous tissue: Status: Acute Plan 57-year-old male patient presenting with a large neck abscess which began approximately 1.5 months prior. Patient is now admitted for IV antibiotics. Incision and drainage was performed in the emergency department. Will monitor output and resolution of the infection. Patient may require excision of the underlying cyst once the infection has resolved. Procedures Date of Service Date of Service: 05/08/22
--- NOTE | 2022-05-08 08:54 | PHA.MEDREC ---
Pharmacy Consult ? Medication Reconciliation Pharmacy has completed the medication reconciliation. Pt states he only takes metformin, clarified that he does not take any insulin
--- NOTE | 2022-05-08 09:08 | PHA.PROG ---
Admission Date/Time: May 08, 2022 05:20 Indication: SKIN Weight in k.647 kg Serum Creatinine - Last 168 Hours 05/07/22 05/08/22 21:03 07:41 Creatinine 0.88 0.73 Estimated CrCl and GFR - Last 168 Hours 05/07/22 05/08/22 21:03 07:41 Estim Creat Clear Calc 96.7 116.6 Estimated GFR > 60 > 60 Vancomycin Loading Dose: 2000 Current Vancomycin Dosing Regimen: 1250 Q 12 Vancomycin Monitoring using AUC goal of 400 - 600 range with trough as surrogate marker: 513 Date and Time for next Vancomycin Level to be drawn: 05/09 1200 Pharmacist Comments on Vancomycin Plan: Vancomycin dosing will take advantage of [employer] as a clinical decision support tool that uses Bayesian modeling to calculate individual patient's pharmacokinetic parameters and forecast the patient's drug concentration time course with the target goal AUC 24 range of 400 - 600 mg/L/hr.
--- NOTE | 2022-05-08 10:24 | PC.NURSE ---
Pt resting, denies pain at present. Dsg changed to posterior neck. Area red/warm, packing in place. Moderate amt of serosang drainage on old dsg.
[2022-05-08] MEDS: vancomycin HCL 1,250 MG in 0.9 % Sodium Chloride 250 ML 166.67 MG IV (13:26)
--- NOTE | 2022-05-08 16:50 | W.PM.IDCN ---
History of Present Illness Data of Consult Service Date: 05/08/22 Requesting physician: Cirilo White Primary Care Provider: Mahesh Mari MD HPI Reason for consult: abscess/cellulitis occipital area He presents with worsening abscess and pain occiput neck. He has no fever or chills. Review of Systems Review of Systems: Yes all other systems are reviewed and are negative PMFSH Past Medical History Medical History Erectile dysfunction associated with type 2 diabetes mellitus Hypovitaminosis D Left sciatic nerve pain Overweight (BMI 25.0-29.9) Pure hypercholesterolemia Type 2 diabetes mellitus with hyperglycemia Family History Family History Brother Diabetes mellitus Sister Diabetes mellitus Mother Diabetes mellitus Father Medical history unknown Family history: reviewed and not pertinent Surgical History Surgical History No pertinent past surgical history Social History Social History Housing: House Alcohol intake: former Patient Tobacco Use Status: Never used Tobacco e-Cigarette/Vaping Use: Never Used Second Hand Smoke Exposure: Yes Use of substances other than those prescribed or required for medical reasons: No Advance Directives: Yes Advance Directives on File: Yes Advance Directives Date on File: 05/08/22 service: No Current occupational status: disabled Meds Allergies Allergy/AdvReac Type Severity Reaction Status Date / Time No Known Allergies Allergy Verified 04/14/22 11:12 [No Known Allergies*] Active Medications: Current Medications Acetaminophen (Acetaminophen 325 Mg Tablet) 650 mg PO Q6H PRN PRN Reason: Pain, Mild (Pain Scale 1-3) Atorvastatin Calcium (Atorvastatin Calcium 10 Mg Tablet) 10 mg PO BEDTIME [facility] Enoxaparin Sodium (Enoxaparin Sodium 40 Mg/0.4 Ml Syringe) 40 mg SUBCUT Q24H [facility] Last Admin: 05/08/22 06:21 Dose: 40 mg Hydromorphone HCl (Hydromorphone Hcl 0.5 Mg/0.5 Ml Syringe) 0.5 mg IVPUSH Q4H PRN; Protocol PRN Reason: Breakthrough Pain Piperacillin Sod/Tazobactam (Sod 3.375 gm/ Sodium Chloride) 50 mls @ 100 mls/hr IV Q6H [facility] Last Infusion: 05/08/22 13:11 Dose: Infused Vancomycin HCl 1,250 mg/ (Sodium Chloride) 250 mls @ 166.667 mls/hr IV Q12H [facility] Last Admin: 05/08/22 13:26 Dose: 166.67 mls/hr Melatonin (Melatonin 3 Mg Tablet) 6 mg PO BEDTIME PRN PRN Reason: Insomnia Senna (Sennosides 8.6 Mg Tablet) 17.2 mg PO BEDTIME PRN PRN Reason: Constipation Sodium Chloride (0.9 % Sodium Chloride Flush 3 Ml Syringe) 3 ml IVFLUSH QSHIFT [facility] Last Admin: 05/08/22 15:22 Dose: Not Given Home Medications Medication Instructions Recorded Confirmed Last Taken Type metformin 1,000 mg tablet 1 tab PO BID 05/08/22 05/08/22 05/07/22 History Physical Exam Vital Signs: Vital Signs: Last Vital Signs Temp 98.6 F 05/08/22 16:13 Pulse 80 05/08/22 16:13 Resp 17 05/08/22 16:13 BP 146/80 H 05/08/22 16:13 Pulse Ox 95 05/08/22 16:13 O2 Del Method 05/08/22 16:13 BMI result Body Mass Index 25.8 Const: General: cooperative HEENT: Head: Yes normal to inspection Face and sinus: Yes normal facial exam Mouth: Normal oral and palatal mucosa present Teeth and gingiva: dentition normal Eyes: General: appearance normal, both eyes and all related structures Pupils: Equal, round and reactive pupils present Neck: Other: cellulitis and some purulence wick Resp: Effort & Inspection: normal respiratory effort Cardio: Rate: regular rate Rhythm: regular rhythm GI: Palpation (GI): Soft to palpation and nontender : General: Yes no CVA tenderness Back/Spine/Pelvis: Back: no CVA tenderness Skin: General skin exam: no rashes or lesions noted Neuro: General: moves all extremities Cranial nerves: Yes Equal, round and reactive pupils present Extrem: General: Yes normal to inspection Psych: Appearance: grossly normal Results Labs CBC & Chem 7: 05/07/22 21:03 05/08/22 07:41 Labs: Short CBC 05/07/22 Range/Units 21:03 WBC 9.0 (4.8-10.8) X10*3/uL Hgb 14.3 (14.0-18.0) g/dl Hct 40.7 L (42.0-52.0) % Plt Count 206 (160-400) X10*3/uL BMP 05/07/22 05/08/22 21:03 07:41 Sodium 135 Potassium 3.8 Chloride 99 Carbon Dioxide 24 BUN 13 Creatinine 0.88 0.73 Calcium 9.4 Liver Function 05/07/22 Range/Units 21:03 Total Bilirubin 0.5 (0.0-1.0) mg/dL AST 12 (5-37) U/L ALT 12 (0-40) U/L Alkaline Phosphatase 106 (39-117) U/L Albumin 3.9 (3.5-5.0) g/dL Assessment and Plan (1) Abscess of skin or subcutaneous tissue: Status: Acute He has diabetes and admitted due to risk of infection. Multiple organisms are possible Plan Continue Vancomycin and Zosyn for now. Probable po Doxycycline and Augmentin for a week at home in day or two. Check culture MRSA.
[2022-05-08 17:20] LABS: Glucose, Whole Blood 190 mg/dL (60-115)
[2022-05-08] MEDS: Acetaminophen 325 MG TABLET 650 MG PO (18:27)
[2022-05-08] MEDS: Atorvastatin Calcium 10 MG TABLET PO (20:24)
[2022-05-08 21:15] LABS: Glucose, Whole Blood 270 mg/dL (60-115)
[2022-05-09] MEDS: vancomycin HCL 1,250 MG in 0.9 % Sodium Chloride 250 ML 166.67 MG IV (01:41)
[2022-05-09 04:00] VITALS: BP 141/76; PULSE 73; RESP 18; TEMP 36.9; O2SAT 96
[2022-05-09] MEDS: Piperacillin Sodium/Tazobactam 3.375 GM in 0.9 % Sodium Chloride 50 ML IV ×3 (06:23→19:28)
[2022-05-09] MEDS: Enoxaparin Sodium 40 MG/0.4 ML SYRINGE SUBCUT (06:24)
[2022-05-09 06:36] LABS: MANUAL DIFF FLAG NO
[2022-05-09 06:44] LABS: Basophils Percent Auto 0.5 % (0-2); Eosinophils Absolute Auto 0.1 X10*3/uL (0.0-0.4); Eosinophils Percent Auto 2.1 % (0-4); Hematocrit 39.8 % (42.0-52.0); Hemoglobin 13.8 g/dl (14.0-18.0); Imm Gran Abs Auto 0.03 X10*3/uL (0.00-0.03); Imm Gran Pct Auto 0.5 % (0.0-0.4); Lymphocytes Absolute Auto 1.5 X10*3/uL (1.2-4.9); Lymphocytes Percent Auto 23.6 % (20-40); Mean Corpuscular HGB Conc 34.7 g/dl (31.0-36.0); Mean Corpuscular Hemoglobin 29.5 pg (27.0-33.0); Mean Platelet Volume 11.1 fL (9.4-12.4); Monocytes Absolute Auto 0.7 X10*3/uL (0.1-1.2); Monocytes Percent Auto 10.4 % (2-11); Neutrophils Percent Auto 62.9 % (45-73); Platelet Count 222 X10*3/uL (160-400); Red Blood Count 4.68 X10*6/uL (4.60-5.80); Red Cell Distribution Width 11.5 % (11.0-16.0); White Blood Count 6.3 X10*3/uL (4.8-10.8)
[2022-05-09 07:08] VITALS: BP 134/83; RESP 18; TEMP 36.7
--- NOTE | 2022-05-09 07:20 | PC.NURSE ---
last night hs pt refused insulin poc was 270
[2022-05-09 07:28] LABS: Anion Gap 17 (12-20); Blood Urea Nitrogen 8 mg/dL (9-16); Carbon Dioxide 23 mmol/L (22-29); Chloride 101 mmol/L (96-108); Creatinine Clr Calc Pharmacy 113.5; Estimated Glomerular Filt Rate > 60; Glucose Random 222 mg/dL (60-115); Potassium 4.1 mmol/L (3.3-5.1); Sodium 137 mmol/L (135-145)
[2022-05-09 07:31] LABS: Estimated Glomerular Filt Rate > 60
[2022-05-09 07:43] LABS: Glucose, Whole Blood 231 mg/dL (60-115)
--- NOTE | 2022-05-09 07:48 | P.PNIM_ITS ---
Subjective Subjective Date of Service: 05/09/22 Interval History: f/u neck posterior neck cellulitis and abscess s/p I and Pain is better, no fever Review of Systems no fever, mild pain in the neck Physical Exam Vital Signs: Vital Signs: Last Vital Signs Temp 98.0 F 05/09/22 07:08 Pulse 73 05/09/22 04:00 Resp 18 05/09/22 07:08 BP 134/83 05/09/22 07:08 Pulse Ox 96 05/09/22 04:00 O2 Del Method 05/09/22 07:08 BMI result Body Mass Index 25.8 Const: Other: General: AO X 3, no acute distress Resp: CTA bilateral CVS: S1,S2,RRR GI: +BS, NT, no distention Skin: open wound of back of neck packing in place, minimal surounding erythema Neuro: motor grossly intact Psych: appropriate affect Objective Data Active Medications Acetaminophen (Acetaminophen 325 Mg Tablet) 650 mg PO Q6H PRN PRN Reason: Pain, Mild (Pain Scale 1-3) Last Admin: 05/08/22 18:27 Dose: 650 mg Documented By: MADHAV Atorvastatin Calcium (Atorvastatin Calcium 10 Mg Tablet) 10 mg PO BEDTIME [facility]END[facility] TO [facility] Last Admin: 05/08/22 20:24 Dose: 10 mg Documented By: ANDREW Dextrose (Dextrose 50 % 25 Gm/50 Ml Syringe) 25 gm IVPUSH Q15M PRN; Protocol PRN Reason: per Hypoglycemia Standing Ord. Enoxaparin Sodium (Enoxaparin Sodium 40 Mg/0.4 Ml Syringe) 40 mg SUBCUT Q24H [facility] Last Admin: 05/09/22 06:24 Dose: 40 mg Documented By: LOUIS Glucose (Glucose Gel 15 Gm Gel..Gram.) 15 gm PO Q15M PRN; Protocol PRN Reason: per Hypoglycemia Standing Ord. Hydromorphone HCl (Hydromorphone Hcl 0.5 Mg/0.5 Ml Syringe) 0.5 mg IVPUSH Q4H PRN; Protocol PRN Reason: Breakthrough Pain Piperacillin Sod/Tazobactam (Sod 3.375 gm/ Sodium Chloride) 50 mls @ 100 mls/hr IV Q6H [facility] Last Infusion: 05/09/22 07:19 Dose: 100 mls/hr Documented By: LOUIS Vancomycin HCl 1,250 mg/ (Sodium Chloride) 250 mls @ 166.667 mls/hr IV Q12H [facility] Last Infusion: 05/09/22 03:30 Dose: 166.67 mls/hr Documented By: LOUIS Insulin Human Lispro (Insulin Lispro 100 Unit/Ml 3 Ml Vial) 0 unit SUBCUT QIDACHS [facility] TO [facility]; Protocol Melatonin (Melatonin 3 Mg Tablet) 6 mg PO BEDTIME PRN PRN Reason: Insomnia Senna (Sennosides 8.6 Mg Tablet) 17.2 mg PO BEDTIME PRN PRN Reason: Constipation Sodium Chloride (0.9 % Sodium Chloride Flush 3 Ml Syringe) 3 ml IVFLUSH QSHIFT [facility] Last Admin: 05/08/22 21:03 Dose: 3 ml Documented By: LOUIS Labs CBC & Chem 7: 05/09/22 05:44 05/09/22 05:44 Labs: Laboratory Results - last 24 hr 05/08/22 05/08/22 05/08/22 07:41 17:17 21:07 MCV MCH MCHC RDW Plt Count MPV Immature Gran % (Auto) Neut % (Auto) Lymph % (Auto) Bibb % (Auto) Eos % (Auto) Baso % (Auto) Lymph # (Auto) [place] # (Auto) Eos # (Auto) Baso # (Auto) Abs Immat Gran (auto) Absolute Neuts (auto) Absolute Nucleated RBC Nucleated RBC % (auto) Anion Gap Estim Creat Clear Calc 116.6 Estimated GFR > 60 POC Glucose 190 H 270 H Random Glucose Calcium 05/09/22 05/09/22 05/09/22 05:44 05:44 05:44 MCV 85.0 MCH 29.5 MCHC 34.7 RDW 11.5 Plt Count 222 MPV 11.1 Immature Gran % (Auto) 0.5 H Neut % (Auto) 62.9 Lymph % (Auto) 23.6 Bibb % (Auto) 10.4 Eos % (Auto) 2.1 Baso % (Auto) 0.5 Lymph # (Auto) 1.5 Bibb # (Auto) 0.7 Eos # (Auto) 0.1 Baso # (Auto) 0.0 Abs Immat Gran (auto) 0.03 Absolute Neuts (auto) 4.0 Absolute Nucleated RBC 0.000 Nucleated RBC % (auto) 0.0 Anion Gap 17 Estim Creat Clear Calc 115.0 113.5 Estimated GFR > 60 > 60 POC Glucose Random Glucose 222 H Calcium 9.0 05/09/22 07:13 MCV MCH MCHC RDW Plt Count MPV Immature Gran % (Auto) Neut % (Auto) Lymph % (Auto) Bibb % (Auto) Eos % (Auto) Baso % (Auto) Lymph # (Auto) Bibb # (Auto) Eos # (Auto) Baso # (Auto) Abs Immat Gran (auto) Absolute Neuts (auto) Absolute Nucleated RBC Nucleated RBC % (auto) Anion Gap Estim Creat Clear Calc Estimated GFR POC Glucose 231 H Random Glucose Calcium Microbiology Microbiology Results: Microbiology 05/07/22 21:04 Blood Culture - Preliminary Blood - Venous No growth after 24 hours. 05/07/22 21:05 Blood Culture - Preliminary Blood - Venous No growth after 24 hours. Assessment and Plan (1) Abscess of skin or subcutaneous tissue: Status: Acute Plan 57-year-old male with a past medical history of hypertension, hyperlipidemia, diabetes presented to the hospital today with a chief complaint of swelling on the back of the neck.? Noted to have cellulitis/abscess.? Admitted for further management.? Cellulitis/abscess on the posterior neck: Imaging showed 5.6 cm abscess status post I&D in ED, culture negative sof far Continue IV vancomycin and Zosyn D2, ID recommend Doxy for 1 week once improve General surgery consult--> recommend remove of cyst once infection resolves History of diabetes:? Insulin sliding scale, restart metformin DVT prophylaxis:? Lovenox Code status:? Full code need for inaptient: cellulitis and abscess of neck needing IV Abx and possible surgical intervention Quality Stroke Does the patient have a stroke diagnosis?: No VTE Prior VTE?: No VTE Risk Level:: Medical - moderate - high VTE Device Contraindication: Treatment Not Indicated VTE Drug Contraindication: N/A - Med Ordered
[2022-05-09] MEDS: Acetaminophen 325 MG TABLET 650 MG PO ×2 (07:58→19:29)
[2022-05-09] MEDS: Insulin Lispro 100 UNIT/ML 3 ML VIAL SUBCUT ×4 (07:59→22:03)
--- NOTE | 2022-05-09 09:21 | PM.PNGS ---
Subjective Subjective Date of Service: 05/09/22 Interval history: Patient reports continued pain in the neck. Physical Exam Vital Signs: Vital Signs: Last Vital Signs Temp 98.0 F 05/09/22 07:08 Pulse 73 05/09/22 04:00 Resp 18 05/09/22 07:08 BP 134/83 05/09/22 07:08 Pulse Ox 96 05/09/22 04:00 O2 Del Method 05/09/22 07:08 BMI result Body Mass Index 25.8 Neck: Other: Dressings changed. Erythema surrounding the neck appears slightly improved. Wick was advanced and a large collection of serosanguineous fluid drained. Clean dressings applied. Neck images: 1. I and D site Skin: Other: Erythema as noted above Extrem: General: No edema Objective Data Active Medications Acetaminophen (Acetaminophen 325 Mg Tablet) 650 mg PO Q6H PRN PRN Reason: Pain, Mild (Pain Scale 1-3) Last Admin: 05/09/22 07:58 Dose: 650 mg Documented By: INEZ Atorvastatin Calcium (Atorvastatin Calcium 10 Mg Tablet) 10 mg PO BEDTIME [facility] Last Admin: 05/08/22 20:24 Dose: 10 mg Documented By: ANDREW Dextrose (Dextrose 50 % 25 Gm/50 Ml Syringe) 25 gm IVPUSH Q15M PRN; Protocol PRN Reason: per Hypoglycemia Standing Ord. Enoxaparin Sodium (Enoxaparin Sodium 40 Mg/0.4 Ml Syringe) 40 mg SUBCUT Q24H [facility] Last Admin: 05/09/22 06:24 Dose: 40 mg Documented By: LOUIS Glucose (Glucose Gel 15 Gm Gel..Gram.) 15 gm PO Q15M PRN; Protocol PRN Reason: per Hypoglycemia Standing Ord. Hydromorphone HCl (Hydromorphone Hcl 0.5 Mg/0.5 Ml Syringe) 0.5 mg IVPUSH Q4H PRN; Protocol PRN Reason: Breakthrough Pain Piperacillin Sod/Tazobactam (Sod 3.375 gm/ Sodium Chloride) 50 mls @ 100 mls/hr IV Q6H [facility] Last Infusion: 05/09/22 07:19 Dose: 100 mls/hr Documented By: LOUIS Vancomycin HCl 1,250 mg/ (Sodium Chloride) 250 mls @ 166.667 mls/hr IV Q12H [facility] Last Infusion: 05/09/22 03:30 Dose: 166.67 mls/hr Documented By: LOUIS Insulin Human Lispro (Insulin Lispro 100 Unit/Ml 3 Ml Vial) 0 unit SUBCUT QIDACHS [facility]; Protocol Last Admin: 05/09/22 07:59 Dose: 4 unit Documented By: INEZ Melatonin (Melatonin 3 Mg Tablet) 6 mg PO BEDTIME PRN PRN Reason: Insomnia Metformin HCl (Metformin Hcl 1,000 Mg Tablet) 1,000 mg PO BIDWM MEI Senna (Sennosides 8.6 Mg Tablet) 17.2 mg PO BEDTIME PRN PRN Reason: Constipation Sodium Chloride (0.9 % Sodium Chloride Flush 3 Ml Syringe) 3 ml IVFLUSH QSHIFT [facility] Last Admin: 05/09/22 08:13 Dose: Not Given Documented By: INEZ Non-Admin Reason: IV Running Labs CBC & Chem 7: 05/09/22 05:44 05/09/22 05:44 Labs: Laboratory Results - last 24 hr 05/08/22 05/08/22 05/09/22 17:17 21:07 05:44 MCV MCH MCHC RDW Plt Count MPV Immature Gran % (Auto) Neut % (Auto) Lymph % (Auto) [place] % (Auto) Eos % (Auto) Baso % (Auto) Lymph # (Auto) [place] # (Auto) Eos # (Auto) Baso # (Auto) Abs Immat Gran (auto) Absolute Neuts (auto) Absolute Nucleated RBC Nucleated RBC % (auto) Anion Gap Estim Creat Clear Calc 115.0 Estimated GFR > 60 POC Glucose 190 H 270 H Random Glucose Calcium 05/09/22 05/09/22 05/09/22 05:44 05:44 07:13 MCV 85.0 MCH 29.5 MCHC 34.7 RDW 11.5 Plt Count 222 MPV 11.1 Immature Gran % (Auto) 0.5 H Neut % (Auto) 62.9 Lymph % (Auto) 23.6 [place] % (Auto) 10.4 Eos % (Auto) 2.1 Baso % (Auto) 0.5 Lymph # (Auto) 1.5 [place] # (Auto) 0.7 Eos # (Auto) 0.1 Baso # (Auto) 0.0 Abs Immat Gran (auto) 0.03 Absolute Neuts (auto) 4.0 Absolute Nucleated RBC 0.000 Nucleated RBC % (auto) 0.0 Anion Gap 17 Estim Creat Clear Calc 113.5 Estimated GFR > 60 POC Glucose 231 H Random Glucose 222 H Calcium 9.0 Microbiology Microbiology Results: Microbiology 05/07/22 21:04 Blood Culture - Preliminary Blood - Venous No growth after 24 hours. 05/07/22 21:05 Blood Culture - Preliminary Blood - Venous No growth after 24 hours. Procedures Date of Service Date of Service: 05/09/22 Progress Note: A&P Assessment and plan (1) Abscess of skin or subcutaneous tissue: Status: Acute Plan Continued erythema in the posterior neck. Dressings changed and a large amount of serosanguineous discharge noted. WBC normal. Continue antibiotics and daily dressing changes. Time Spent With Patient Time: Total time spent is greater than 50% in coordination of care (as documented) at patient's floor/unit and/or counseling patient: Quality Stroke Does the patient have a stroke diagnosis?: No VTE Prior VTE?: No VTE Risk Level:: Medical - moderate - high VTE Device Contraindication: Treatment Not Indicated VTE Drug Contraindication: N/A - Med Ordered
[2022-05-09] MEDS: metFORMIN HCl 1,000 MG TABLET 1000 MG PO ×2 (10:14→16:47)
[2022-05-09 10:51] VITALS: BP 141/91; PULSE 89; RESP 18; TEMP 36.7; O2SAT 97
[2022-05-09 11:17] LABS: Glucose, Whole Blood 177 mg/dL (60-115)
[2022-05-09 12:33] LABS: Vancomycin Trough 7.2 mcg/mL (10.0-20.0)
--- NOTE | 2022-05-09 13:16 | HE.PHANOTE ---
VANCO DOSE ADJUSTMENT BASED ON TROUGH DOSE INCREASED TO 1500 Q 12. NEXT TROUGH 10/2 AT 1200. PREDICTED AUC OF 492 TROUGH OF 12.6
[2022-05-09] MEDS: vancomycin HCL 1,500 MG in 0.9 % Sodium Chloride 500 ML 333.33 MG IV (14:50)
[2022-05-09 15:24] VITALS: BP 142/88; PULSE 96; RESP 19; TEMP 36.8; O2SAT 96
[2022-05-09 15:32] LABS: Glucose, Whole Blood 178 mg/dL (60-115)
[2022-05-09 19:03] VITALS: BP 148/78; PULSE 80; RESP 17; TEMP 36.7; O2SAT 95
[2022-05-09 19:48] LABS: Glucose, Whole Blood 190 mg/dL (60-115)
[2022-05-09] MEDS: Atorvastatin Calcium 10 MG TABLET PO (22:03)
[2022-05-10] VITALS (7 sets, daily range): BP systolic 129–157; BP diastolic 71–96; PULSE 66–90; RESP 18; TEMP 36.1–36.8; O2SAT 96–98
[2022-05-10] MEDS: Piperacillin Sodium/Tazobactam 3.375 GM in 0.9 % Sodium Chloride 50 ML IV ×2 (00:28→06:10)
[2022-05-10] MEDS: 0.9 % Sodium Chloride Flush 3 ML SYRINGE IVFLUSH ×4 (00:35→20:08)
[2022-05-10] MEDS: Acetaminophen 325 MG TABLET 650 MG PO (02:40)
[2022-05-10] MEDS: vancomycin HCL 1,500 MG in 0.9 % Sodium Chloride 500 ML 333.33 MG IV (02:42)
[2022-05-10] MEDS: Enoxaparin Sodium 40 MG/0.4 ML SYRINGE SUBCUT (06:09)
[2022-05-10 06:29] LABS: Creatinine Clr Calc Pharmacy 100.1; Estimated Glomerular Filt Rate > 60
[2022-05-10 08:12] LABS: Glucose, Whole Blood 168 mg/dL (60-115)
[2022-05-10] MEDS: metFORMIN HCl 1,000 MG TABLET 1000 MG PO ×2 (08:21→16:40)
[2022-05-10] MEDS: Insulin Lispro 100 UNIT/ML 3 ML VIAL SUBCUT ×3 (08:22→16:40)
--- NOTE | 2022-05-10 09:12 | P.DS_ITS ---
DS: Providers Provider Date of Service: 05/11/22 Date of admission: 05/08/22 05:20 Primary care physician: Mahesh Mari MD Consults: 05/08/22 05:19 Consult to Infectious Diseases Routine Consulting Provider: Araceli Motta Reason for consultation: base of skull abscess; symptoms started after hair cut ?tetanus vaccination 05/08/22 05:23 Consult to General Surgery Routine Consulting Provider: Rei Lloyd Reason for consultation: abscess DS: Diagnosis Discharge Diagnosis (1) Abscess of skin or subcutaneous tissue: Status: Acute DS: Summary Hospital Course Hospital Course: Chief Complaint: Swelling on the back of the neck 57-year-old male with a past medical history of hypertension, hyperlipidemia, diabetes presented to the hospital today with a chief complaint of swelling on the back of the neck.? Patient mentioned that about 2 months ago he had a head CT and followed by he developed a small 1 cm size swelling which has been gradually increasing in size; came to the hospital about a month ago and was noted to have small hard swelling on the base of the occiput-appears call swelling; patient was given antibiotics and subsequently sent him home.? Mentioned that he finished a course of antibiotics but the swelling has been gradually worsening.? Denies any fevers.? Swelling is currently 7-8 cm in size, causing pain and decreased neck movement.? Denies any chest pain or palpitations.? Denies any headaches, numbness tingling, blurry visions.? Denies any nausea vomiting or diarrhea.? Denies any urinary symptoms.? Review of all other systems is negative except mentioned above ER course: Per ER team patient noted to have swelling on the base of the occiput, imaging showed abscess-status post I&D in the ER.? Given IV antibiotics.? Also concern for possible myositis.? Admitted to the hospital for further management Hospital course: Cellulitis and abscess on the posterior neck, CT showed 5.6 cm abscess status post I&D in ED, culture negative. Treated in the hospital with IV Vancomyin and Zosyn for 3 days, seen by surgery with recommendation for cyst romoval once infection gone. ID recommends Doxy and Augmentin for 1 week at discharge. Initial WBC high is now normal . Surgery recommend daily dressing changes with dry sterile gauze and paper tape. Follow up with in a week. Home health service to [facility] to help with dressing given the challenging back of the nec History of diabetes:?Continue metformin Final diagnosis: Cellulitis and abscess of the posterior neck Diabetes Time Spent with Patient Time attestation: Total time spent providing and/or coordinating discharge services: Discharge coordination time: Greater than 30 minutes Quality: Safe Use of Opioids Does Pt have an Active Cancer Diagnosis on the Problem List?: No Quality: Stroke Does the patient have a stroke diagnosis?: No Physical Exam Vital Signs: Vital Signs: Selected Entries 05/11/22 07:01 Temperature 97.2 F Pulse Rate 80 Respiratory Rate 17 Blood Pressure 157/91 H Const: Other: General: AO X 3, no acute distress Resp: CTA bilateral CVS: S1,S2,RRR GI: +BS, NT, no distention Skin: posterior neck wound with minimal drainage and surrouing erythema. Neuro: motor grossly intact Psych: appropriate affect DS: Data Data Completed and Pending Labs on day of discharge: Laboratory Results - last 24 hr 05/09/22 05/09/22 05/09/22 10:53 11:54 15:27 Creatinine Estim Creat Clear Calc Estimated GFR POC Glucose 177 H 178 H Vancomycin Trough 7.2 L 05/09/22 05/10/22 05/10/22 19:07 06:01 07:24 Creatinine 0.85 Estim Creat Clear Calc 100.1 Estimated GFR > 60 POC Glucose 190 H 168 H Vancomycin Trough Preliminary micro results at discharge 05/07/22 21:04 Blood Culture - Preliminary Blood - Venous No growth after 48 hours. 05/07/22 21:05 Blood Culture - Preliminary Blood - Venous No growth after 48 hours. Discharge Plan Discharge Anticipated Discharge Date/Time: 05/10/22 09:05 Patient Disposition: Home Health Service Discharge Diagnosis: Cellulitis and abscess of the neck Referrals: Jeimy CEDILLO [Outside] - 1 Day ([facility] ) Mahesh Mari MD [Primary Care Provider] - 1 Week Rei Lloyd MD [Physician] - 1 Week Discharge Medications: New doxycycline hyclate 100 mg tablet 100 mg PO BID 7 Days Qty: 14 0RF amoxicillin-pot clavulanate 875-125 mg tablet 1 tab PO Q12H Qty: 14 0RF Continued metformin 1,000 mg tablet 1 tab PO BID Discharge Orders: Discharge Order (Routine); Ordered 05/11/22 Ordered By: Cirilo White Diet: Diabetic diet Activity on Discharge: As tolerated Stand Alone Forms: Patient Portal Discharge page Care Plan Goals: Full recovery from abscess Health Concerns: Diabetes, absces and cellulitis of the neck Plan of Treatment: Take Doxycyline and Augmentina s recommended and follow up with your Doctor in a week Assessment: above
--- NOTE | 2022-05-10 09:13 | P.PNGS_ITS ---
Subjective Subjective Date of Service: 05/10/22 Interval history: Patient feels much improved with decreased neck pain today. Physical Exam Vital Signs: Vital Signs: Last Vital Signs Temp 98.3 F 05/10/22 07:18 Pulse 70 05/10/22 07:18 Resp 18 05/10/22 07:18 BP 144/89 H 05/10/22 07:18 Pulse Ox 98 05/10/22 07:18 O2 Del Method 05/10/22 07:18 BMI result Body Mass Index 25.8 Const: General: comfortable and no acute distress Nutritional Appearance: well nourished Orientation/consciousness: patient oriented x3 Neck: Other: Dressings changed and wick removed. Erythema and edema much improved. A small amount of bloody discharge remaining. Clean dressings applied. Skin: Other: Erythema and neck as noted above. Neuro: General: patient oriented x3 Extrem: Other: No edema Objective Data Active Medications Acetaminophen (Acetaminophen 325 Mg Tablet) 650 mg PO Q6H PRN PRN Reason: Pain, Mild (Pain Scale 1-3) Last Admin: 05/10/22 02:40 Dose: 650 mg Documented By: MIKE Atorvastatin Calcium (Atorvastatin Calcium 10 Mg Tablet) 10 mg PO BEDTIME [facility] Last Admin: 05/09/22 22:03 Dose: 10 mg Documented By: MIKE Dextrose (Dextrose 50 % 25 Gm/50 Ml Syringe) 25 gm IVPUSH Q15M PRN; Protocol PRN Reason: per Hypoglycemia Standing Ord. Enoxaparin Sodium (Enoxaparin Sodium 40 Mg/0.4 Ml Syringe) 40 mg SUBCUT Q24H [facility] Last Admin: 05/10/22 06:09 Dose: 40 mg Documented By: IMKE Glucose (Glucose Gel 15 Gm Gel..Gram.) 15 gm PO Q15M PRN; Protocol PRN Reason: per Hypoglycemia Standing Ord. Hydromorphone HCl (Hydromorphone Hcl 0.5 Mg/0.5 Ml Syringe) 0.5 mg IVPUSH Q4H PRN; Protocol PRN Reason: Breakthrough Pain Piperacillin Sod/Tazobactam (Sod 3.375 gm/ Sodium Chloride) 50 mls @ 100 mls/hr IV Q6H [facility] Last Infusion: 05/10/22 07:10 Dose: 0 mls/hr Documented By: MIKE Vancomycin HCl 1,500 mg/ (Sodium Chloride) 500 mls @ 333.333 mls/hr IV Q12H [facility] Last Infusion: 05/10/22 04:37 Dose: 0 mls/hr Documented By: MIKE Insulin Human Lispro (Insulin Lispro 100 Unit/Ml 3 Ml Vial) 0 unit SUBCUT QIDACHS [facility]; Protocol Last Admin: 05/10/22 08:22 Dose: 2 unit Documented By: SHONNA Melatonin (Melatonin 3 Mg Tablet) 6 mg PO BEDTIME PRN PRN Reason: Insomnia Metformin HCl (Metformin Hcl 1,000 Mg Tablet) 1,000 mg PO BIDWM [facility] Last Admin: 05/10/22 08:21 Dose: 1,000 mg Documented By: SHONNA Senna (Sennosides 8.6 Mg Tablet) 17.2 mg PO BEDTIME PRN PRN Reason: Constipation Sodium Chloride (0.9 % Sodium Chloride Flush 3 Ml Syringe) 3 ml IVFLUSH QSHIFT [facility] Last Admin: 05/10/22 08:24 Dose: 3 ml Documented By: SHONNA Labs CBC & Chem 7: 05/09/22 05:44 05/10/22 06:01 Labs: Laboratory Results - last 24 hr 05/09/22 05/09/22 05/09/22 10:53 11:54 15:27 Estim Creat Clear Calc Estimated GFR POC Glucose 177 H 178 H Vancomycin Trough 7.2 L 05/09/22 05/10/22 05/10/22 19:07 06:01 07:24 Estim Creat Clear Calc 100.1 Estimated GFR > 60 POC Glucose 190 H 168 H Vancomycin Trough Microbiology Microbiology Results: Microbiology 05/07/22 21:04 Blood Culture - Preliminary Blood - Venous No growth after 48 hours. 05/07/22 21:05 Blood Culture - Preliminary Blood - Venous No growth after 48 hours. Procedures Date of Service Date of Service: 05/10/22 Progress Note: A&P Assessment and plan (1) Abscess of skin or subcutaneous tissue: Status: Acute Plan 57-year-old male patient presenting with a large abscess of the posterior neck status post incision and drainage in the ED. wounds are much improved today with decreased pain, swelling and erythema. Dressings were changed in wick removed. He will need daily dressing changes with dry sterile gauze and paper tape. He may shower and should change dressings after a shower. He should follow up in the office in approximately 1-2 weeks for wound check. Time Spent With Patient Time: Total time spent is greater than 50% in coordination of care (as documented) at patient's floor/unit and/or counseling patient: Quality Stroke Does the patient have a stroke diagnosis?: No VTE Prior VTE?: No VTE Risk Level:: Medical - moderate - high VTE Device Contraindication: Treatment Not Indicated VTE Drug Contraindication: N/A - Med Ordered
[2022-05-10] MEDS: Amoxicillin/Potassium Clav 875 MG TABLET PO ×2 (10:11→20:07)
[2022-05-10 12:00] LABS: Glucose, Whole Blood 186 mg/dL (60-115)
--- NOTE | 2022-05-10 14:41 | MHC.CM.PN ---
PT LIVES AT HOME WITH HIS GIRLFRIEND AND IS INDEPENDENT WITH CARE PT HAS NO DME /SERVICES HCP ON FILE PCP: [facility]CI[facility] WITH PFIZER X 2 DCP IS HOME [facility] REFERRAL MADE IN THE EVENT HE REQUIRES SN SERVICES FAMILY TO TRANSPORT
[2022-05-10 16:11] LABS: Glucose, Whole Blood 158 mg/dL (60-115)
[2022-05-10 19:57] LABS: Glucose, Whole Blood 133 mg/dL (60-115)
[2022-05-10] MEDS: Atorvastatin Calcium 10 MG TABLET PO (20:07)
[2022-05-11 03:15] VITALS: BP 146/79; PULSE 73; RESP 18; TEMP 36.8; O2SAT 95
[2022-05-11] MEDS: Enoxaparin Sodium 40 MG/0.4 ML SYRINGE SUBCUT (05:03)
[2022-05-11 07:01] VITALS: BP 157/91; PULSE 80; RESP 17; TEMP 36.2; O2SAT 96
[2022-05-11 07:10] LABS: Glucose, Whole Blood 117 mg/dL (60-115)
[2022-05-11 08:15] LABS: Creatinine Clr Calc Pharmacy 109.1; Estimated Glomerular Filt Rate > 60
--- NOTE | 2022-05-11 09:40 | MHC.CM.PN ---
PT MEDICALLY CLEARED TO D/C HOME W/NEW [facility] FOR SNF, CM CONTACTED PT'S Greg.Lisa BAXTER [phone] WHO REPORTS SHE CAN ASSIST W/DAILY DRESSINGS AND WILL BELLMAKER PT BETWEEN 11:30-12PM.
[2022-05-11] MEDS: Amoxicillin/Potassium Clav 875 MG TABLET PO (09:56)
[2022-05-11] MEDS: metFORMIN HCl 1,000 MG TABLET 1000 MG PO (09:56)
--- NOTE | 2022-05-11 10:45 | W.MHC.F2F ---
Service Date Service Date: 05/11/22 Encounter Date of encounter: 05/11/22 Reasons for Services Signs and symptoms assessed: wound care Reason for halfway: wound care Homebound: Leaving the home is medically contraindicated at this time without the asist of a device and/or another person due th the listed conditions above and below. Reason homebound: other Homebound supporting statement: Wound at back of neck that patient is not able to reach for proper dressing change and therefore need the help of another person to do so Certification: Based on the above findings, I certify that this patient is confined to the home and needs intermittent halfway care, physical therapy and/or speech therapy, or continues to need occupational therapy. The patient is under my care, and I have initiated the establishment of the plan of care. The patient will be followed by a physician who will periodically review the plan of care.
[2022-05-11 10:59] VITALS: BP 133/93; PULSE 92; RESP 18; TEMP 36.3; O2SAT 95
[2022-05-11 11:04] LABS: Glucose, Whole Blood 166 mg/dL (60-115)
== END 2022-05-11 11:17 | disposition home health service (06) | DRG 383 ==
LOC: HO.ED 05-08 01:44 → HO.EDOVER 05-08 05:42 → HO.S3 05-08 19:44
PROVIDERS: Nurse Practitioner Family; Admitting Provider Hospitalist; Emergency Provider Emergency Medicine; PCP Internal Medicine; Visit Provider Internal Medicine
DX: L02.11 Cutaneous abscess of neck (principal); E11.69 Type 2 diabetes mellitus with other specified complication; E78.5 Hyperlipidemia, unspecified; E66.3 Overweight; Z68.25 Body mass index [BMI] 25.0-25.9, adult; I10 Essential (primary) hypertension; L03.221 Cellulitis of neck; N52.1 Erectile dysfunction due to diseases classified elsewhere; Z20.822 Contact with and (suspected) exposure to COVID-19; Z79.84 Long term (current) use of oral hypoglycemic drugs
CPT/HCPCS: 36415; 70491; 80048; 80053; 80202; 82565; 82947; 83605; 85025; 85610; 87040; 87635; 96361; 96374; 96375; 99218; 99285; J0696; J1650; J2270; J2405; J2543; J3370; Q9967

== ENCOUNTER → 2022-05-14 09:51 | Outpatient (BNVA) | payer OTHER, SELFPAY | PROVIDERS: PCP Internal Medicine; Visit Provider Surgery | DX: L02.11 Cutaneous abscess of neck (principal); G47.00 Insomnia, unspecified | CPT/HCPCS: 99212 ==

== ENCOUNTER → 2022-06-26 09:00 | Outpatient (BNVA) | payer OTHER, SELFPAY | PROVIDERS: PCP Internal Medicine; Referring Provider Internal Medicine; Visit Provider Surgery | DX: Z48.817 Encounter for surgical aftercare following surgery on the skin and subcutaneous tissue (principal); Z87.2 Personal history of diseases of the skin and subcutaneous tissue | CPT/HCPCS: 99212 ==

== ENCOUNTER 2022-09-15 08:54 | Outpatient (REF) | payer OTHER, SELFPAY ==
[2022-09-15 09:05] LABS: MANUAL DIFF FLAG NO
[2022-09-15 09:37] LABS: Basophils Percent Auto 0.5 % (0-2); Eosinophils Absolute Auto 0.1 X10*3/uL (0.0-0.4); Eosinophils Percent Auto 1.4 % (0-4); Hematocrit 43.1 % (42.0-52.0); Imm Gran Abs Auto 0.01 X10*3/uL (0.00-0.03); Imm Gran Pct Auto 0.2 % (0.0-0.4); Lymphocytes Absolute Auto 1.9 X10*3/uL (1.2-4.9); Lymphocytes Percent Auto 34.1 % (20-40); Mean Corpuscular HGB Conc 34.8 g/dl (31.0-36.0); Mean Corpuscular Hemoglobin 29.6 pg (27.0-33.0); Mean Corpuscular Volume 85.2 fL (80.0-98.0); Mean Platelet Volume 11.2 fL (9.4-12.4); Monocytes Absolute Auto 0.4 X10*3/uL (0.1-1.2); Monocytes Percent Auto 7.3 % (2-11); Neutrophils Absolute Auto 3.2 x10*3/uL (2.0-8.3); Neutrophils Percent Auto 56.5 % (45-73); Platelet Count 188 X10*3/uL (160-400); Red Blood Count 5.06 X10*6/uL (4.60-5.80); Red Cell Distribution Width 12.2 % (11.0-16.0); White Blood Count 5.6 X10*3/uL (4.8-10.8)
[2022-09-15 09:46] LABS: Appearance Urine Clear; Color Urine Yellow; Glucose Urine UA 500 mg/dL (Negative); Leukocyte Esterase Urine Negative (Negative); Nitrite Urine Negative (Negative); PH 5.5 (5.0-9.0); Urine Blood Negative (Negative); Urine Ketones Negative (Negative); Urine Protein Negative (Neg-Trace)
[2022-09-15 10:19] LABS: Estimated Average Glucose 214 mg/dL; Hemoglobin A1c % 9.1 %
[2022-09-15 10:23] LABS: Creatinine Urine 107.25 mg/dL; Microalbum/Creatinine Ratio Ur 18.6 ug/mg cr
[2022-09-15 10:34] LABS: Alanine Aminotransferase 16 U/L (0-40); Albumin Level 4.2 g/dL (3.5-5.0); Alkaline Phosphatase 67 U/L (39-117); Anion Gap 15 (12-20); Aspartate Amino Transferase 12 U/L (5-37); Bilirubin Total 0.7 mg/dL (0.0-1.0); Blood Urea Nitrogen 14 mg/dL (9-16); Calcium 9.5 mg/dL (8.4-10.2); Carbon Dioxide 24 mmol/L (22-29); Chloride 104 mmol/L (96-108); Cholesterol 147 mg/dL; Estimated Glomerular Filt Rate > 60; Glucose Fasting 191 mg/dL (60-99); HDL Cholesterol 26 mg/dL; LDL Cholesterol Calculated 99 mg/dl; Potassium 4.2 mmol/L (3.3-5.1); Sodium 139 mmol/L (135-145); Triglycerides 111 mg/dL
[2022-09-15 10:41] LABS: TSH reflex Free T4 1.59 uIU/mL (0.32-4.0); Vitamin D 25-OH Total 21.7 ng/mL (>30)
== END 2022-09-15 08:55 | disposition home or self-care (01) ==
LOC: HO.LAB 08:54
PROVIDERS: Visit Provider Internal Medicine
DX: E55.9 Vitamin D deficiency, unspecified (principal); R30.0 Dysuria; E78.00 Pure hypercholesterolemia, unspecified; E11.9 Type 2 diabetes mellitus without complications; I10 Essential (primary) hypertension
CPT/HCPCS: 36415; 80053; 80061; 81003; 82043; 82306; 83036; 84443; 85025

== ENCOUNTER 2022-10-12 19:29 | Emergency (ER) | payer OTHER, SELFPAY ==
[2022-10-12 19:39] VITALS: BP 149/85; PULSE 98; RESP 16; TEMP 36.7; O2SAT 98; BMI 26.6
--- NOTE | 2022-10-12 19:45 | ED.BACK ---
HPI - Back Pain/Injury General Chief Complaint: Back Pain/Injury <NEEMA Mack - Last Filed: 10/12/22 19:45> Stated Complaint: Back pain <NEEMA Mack - Last Filed: 10/12/22 19:45> Time Seen by Provider: 10/12/22 21:23 <NEEMA Mcak - Last Filed: 10/12/22 19:45> Source: patient <Angelo Dang MD - Last Filed: 10/12/22 22:30> Mode of arrival: ambulatory <Angelo Dang MD - Last Filed: 10/12/22 22:30> Limitations: no limitations <Angelo Dang MD - Last Filed: 10/12/22 22:30> History of Present Illness HPI Narrative: 57-year-old male presents with low back pain. The pain started 3 days ago. Started after shoveling snow. The pain is left-sided. It radiates down his left leg. He describes the pain as sharp in achy. It is a 10/10. It is worse with movement certain positions. He denies any numbness or tingling or weakness. He denies any loss of bowel or bladder control. Denies any intravenous drug abuse, fevers. There has been no prior treatment. <Angelo Dang MD - Last Filed: 10/12/22 22:30> MD elicited complaint: back pain <Angelo Dang MD - Last Filed: 10/12/22 22:30> Onset (ago): day(s) (3) <Angelo Dang MD - Last Filed: 10/12/22 22:30> Timing: constant <Angelo Dang MD - Last Filed: 10/12/22 22:30> Severity: severe <Angelo Dang MD - Last Filed: 10/12/22 22:30> Similar Symptoms Previously: No <Angelo Dang MD - Last Filed: 10/12/22 22:30> Quality: sharp, stabbing and aching <Angelo Dang MD - Last Filed: 10/12/22 22:30> Location: lumbar spine <Angelo Dang MD - Last Filed: 10/12/22 22:30> Radiation: left leg below the knee <Angelo Dang MD - Last Filed: 10/12/22 22:30> Exacerbating factors: movement and walking <Angelo Dang MD - Last Filed: 10/12/22 22:30> Relieving factors: none <Angelo Dang MD - Last Filed: 10/12/22 22:30> Context: turning/twisting <Angelo Dang MD - Last Filed: 10/12/22 22:30> Associated symptoms: weakness <Angelo Dang MD - Last Filed: 10/12/22 22:30> Related Data Home Medications: Previous Rx's Medication Instructions Recorded FreeStyle Lite Meter #1 ea 05/12/22 (blood-glucose meter) FreeStyle Lite Strips (blood sugar #100 ea 05/12/22 diagnostic) lancets 28 gauge (FreeStyle #100 ea 05/12/22 Lancets) atorvastatin 10 mg tablet 10 mg PO DAILY #90 tabs 09/14/22 dulaglutide 1.5 mg/0.5 mL 1.5 mg (0.5 mL) subcut QWEEK 4 09/17/22 subcutaneous pen injector weeks #2 mL metformin 1,000 mg tablet 1,000 mg PO BID 30 days #60 tabs 09/17/22 cyclobenzaprine 10 mg tablet 10 mg PO TID PRN muscle spasm #10 10/12/22 tabs meloxicam 15 mg tablet 15 mg PO DAILY #14 tabs 10/12/22 prednisone 20 mg tablet 20 mg PO DAILY #4 tabs 10/12/22 <NEEMA Mack - Last Filed: 10/12/22 19:45> Allergies/Adverse Reactions: Allergies Allergy/AdvReac Type Severity Reaction Status Date / Time No Known Allergies Allergy Verified 09/17/22 09:37 [No Known Allergies*] <NEEMA Mack - Last Filed: 10/12/22 19:45> Review of Systems Review of Systems: CONSTITUTIONAL: Denies weight loss, fever and chills. HEENT: Denies changes in vision and hearing. RESPIRATORY: Denies SOB and cough. CV: Denies palpitations no CP. GI: Denies abdominal pain, nausea, vomiting and diarrhea. : Denies dysuria and urinary frequency. MSK: Denies myalgia and joint pain. Positive back pain SKIN: Denies rash and pruritus. NEUROLOGICAL: Denies headache and syncope. PSYCHIATRIC: Denies recent changes in mood. Denies anxiety and depression. All other ROS are negative unless in HPI <Angelo Dang MD - Last Filed: 10/12/22 22:30> PMFSH Past Medical History Medical History: Medical History Colonoscopy refused Erectile dysfunction associated with type 2 diabetes mellitus Hypovitaminosis D Left sciatic nerve pain Overweight (BMI 25.0-29.9) Pure hypercholesterolemia Type 2 diabetes mellitus with hyperglycemia <NEEMA Mack - Last Filed: 10/12/22 19:45> Surgical History: Surgical History No pertinent past surgical history <NEEMA Mack - Last Filed: 10/12/22 19:45> Family History Family History: Family History Brother Diabetes mellitus Sister Diabetes mellitus Mother Diabetes mellitus Father Medical history unknown <NEEMA Mack - Last Filed: 10/12/22 19:45> Social History Social History: Social History Household Members: Family Housing: Apartment Alcohol intake: former Patient Tobacco Use Status: Never used Tobacco e-Cigarette/Vaping Use: Never Used Second Hand Smoke Exposure: Yes Advance Directives: Yes Advance Directives on File: Yes Advance Directives Date on File: 05/08/22 service: No Current occupational status: unemployed and disabled <NEEMA Mack - Last Filed: 10/12/22 19:45> Physical Exam Vital Signs: Vital Signs: Last Vital Signs Temp 98.1 F 10/12/22 19:39 Pulse 98 10/12/22 19:39 Resp 16 10/12/22 19:39 BP 149/85 H 10/12/22 19:39 Pulse Ox 98 10/12/22 19:39 O2 Del Method 10/12/22 19:39 BMI result Body Mass Index 26.6 <NEEMA Mack - Last Filed: 10/12/22 19:45> Vital Signs: Last Vital Signs Temp 98.1 F 10/12/22 19:39 Pulse 98 10/12/22 19:39 Resp 16 10/12/22 19:39 BP 149/85 H 10/12/22 19:39 Pulse Ox 98 10/12/22 19:39 O2 Del Method 10/12/22 19:39 BMI result Body Mass Index 26.6 <Angelo Dang MD - Last Filed: 10/12/22 22:30> GEN: Well developed, no acute distress, alert, oriented HEENT: Normocephalic, atraumatic, normal external ears, nose appears normal Eyes: Normal to appearance Neck: Supple, no lymphadenopathy Respiratory: Talks in complete sentences, no respiratory distress Extremities: No clubbing cyanosis or edema Neurologic: No focal neurologic deficits, cranial nerves 2-12 intact, strength 5/5 bilaterally lower extremities with hip flexion extension, knee flexion extension, sensation normal bilaterally Skin: No rash Back: Left lumbar paraspinous tenderness, positive straight leg raise <Angelo Dang MD - Last Filed: 10/12/22 22:30> Course Course Course Narrative: RME - 57 yo Prydeinig speaking male presents to the the ER for evaluation of left lower back pain radiating down the left leg that started 2 days ago after shoveling snow. Difficulty walking, arrives to triage in wheelchair. Plan: medicate and reassess pain and mobility prior to d/c. <NEEMA Mack - Last Filed: 10/12/22 19:45> Reevaluation(s) Reevaluation #1: Patient has been medicated. He will be discharged at this time. I discussed all instructions. All questions were addressed and answered. He is aware of the appropriate use of medications. <Angelo Dang MD - Last Filed: 10/12/22 22:30> Time: 22:30 <Angelo Dang MD - Last Filed: 10/12/22 22:30> Medications Administered Discontinued Medications Generic Name Dose Route Start Last Admin Trade Name Freq PRN Reason Stop Dose Admin Acetaminophen 975 mg 10/12/22 21:29 10/12/22 22:16 Acetaminophen 325 Mg Tablet PO 10/12/22 21:30 975 mg ONCE ONE Administration Cyclobenzaprine HCl 10 mg 10/12/22 21:29 10/12/22 22:16 Cyclobenzaprine Hcl 10 Mg Tablet PO 10/12/22 21:30 10 mg ONCE ONE Administration Dexamethasone 6 mg 10/12/22 21:29 10/12/22 22:26 Dexamethasone 6 Mg Tablet PO 10/12/22 21:30 6 mg ONCE ONE Administration Ketorolac Tromethamine 30 mg 10/12/22 21:29 10/12/22 22:17 Ketorolac Tromethamine 30 Mg/Ml Vial IM 10/12/22 21:30 30 mg ONCE ONE Administration <NEEMA Mack - Last Filed: 10/12/22 19:45> Medications Administered Discontinued Medications Generic Name Dose Route Start Last Admin Trade Name Zulma PRN Reason Stop Dose Admin Acetaminophen 975 mg 10/12/22 21:29 10/12/22 22:16 Acetaminophen 325 Mg Tablet PO 10/12/22 21:30 975 mg ONCE ONE Administration Cyclobenzaprine HCl 10 mg 10/12/22 21:29 10/12/22 22:16 Cyclobenzaprine Hcl 10 Mg Tablet PO 10/12/22 21:30 10 mg ONCE ONE Administration Dexamethasone 6 mg 10/12/22 21:29 10/12/22 22:26 Dexamethasone 6 Mg Tablet PO 10/12/22 21:30 6 mg ONCE ONE Administration Ketorolac Tromethamine 30 mg 10/12/22 21:29 10/12/22 22:17 Ketorolac Tromethamine 30 Mg/Ml Vial IM 10/12/22 21:30 30 mg ONCE ONE Administration <Angelo Dang MD - Last Filed: 10/12/22 22:30> Medical Decision Making Medical Decision Making MDM Narrative: 57-year-old male presents with back pain. Most consistent with lumbar radiculopathy. The mid differential diagnosis includes lumbago, musculoskeletal pain, muscle spasm, strain, sciatica. There are no red flag findings on history or physical exam. The presentation is not consistent with malignancy as there is no history of malignancy and lack of B symptoms. Some likely to be fracture since there is no trauma, bony tenderness to palpation. Doubt cauda equina syndrome given no bowel or bladder control related issues, no saddle paresthesia no distal weakness. Doubt other diagnosis that could include AAA, viscous perforation, renal colic, pyelonephritis. Given the clinical picture there is no indication for imaging at this time. Our plan will be to control his pain and supportive treatment with reassessments <Angelo Dang MD - Last Filed: 10/12/22 22:30> Differential Diagnosis Differential Diagnoses: The differential diagnosis associated with the presentation includes (Lumbar radiculopathy, disc protrusion, spinal stenosis, sciatica, muscle spasm) <Angelo Dang MD - Last Filed: 10/12/22 22:30> Lumbar radiculopathy <Angelo Dang MD - Last Filed: 10/12/22 22:30> Admission/Observation Consideration of admission/observation: Escalation of care including admission/observation considered <Angelo Dang MD - Last Filed: 10/12/22 22:30> Independent Historian Clinical information obtained from an independent historian. History obtained from or confirmed by: Spouse <Angelo Dang MD - Last Filed: 10/12/22 22:30> External Record Review External record reviewed: Office record (Primary care visit 09/17/2022) <Angelo Dang MD - Last Filed: 10/12/22 22:30> Prescription Management I considered prescription management with: Pain Medication <Angelo Dang MD - Last Filed: 10/12/22 22:30> Chronic Conditions Patient?s care impacted by: Diabetes <Angelo Dang MD - Last Filed: 10/12/22 22:30> Discharge Plan Discharge Clinical Impression: Lumbar radiculopathy <NEEMA Mack - Last Filed: 10/12/22 19:45> Patient Disposition: Home, Self-Care <NEEMA Mack - Last Filed: 10/12/22 19:45> Instructions: Acute Low Back Pain (ED), Lumbar Radiculopathy (ED) <NEEMA Mack - Last Filed: 10/12/22 19:45> Prescriptions: New prednisone 20 mg tablet 20 mg PO DAILY Qty: 4 0RF cyclobenzaprine 10 mg tablet 10 mg PO TID PRN (Reason: muscle spasm) Qty: 10 0RF meloxicam 15 mg tablet 15 mg PO DAILY Qty: 14 0RF No Action (DME) FreeStyle Lite Strips Strip See Rx Instructions .Route Qty: 100 5RF Rx Instructions: As directed-to test blood sugar two times a day. (DME) blood-glucose meter [FreeStyle Lite Meter] Kit See Rx Instructions .Route Qty: 1 0RF Rx Instructions: As directed- to test blood sugar two times a day. (DME) lancets [FreeStyle Lancets] 28 gauge misc See Rx Instructions .Route Qty: 100 5RF Rx Instructions: As directed-to test blood sugar two times a day. atorvastatin 10 mg tablet 10 mg PO DAILY Qty: 90 1RF metformin 1,000 mg tablet 1,000 mg PO BID 30 Days Qty: 60 2RF Trulicity 1.5 mg/0.5 mL pen injector 1.5 mg subcut QWEEK 28 Days Qty: 2 3RF <NEEMA Mack - Last Filed: 10/12/22 19:45> Referrals: Mahesh Mari MD [Primary Care Provider] - 1 week <NEEMA Mack - Last Filed: 10/12/22 19:45> Print Language: Prydeinig <NEEMA Mack - Last Filed: 10/12/22 19:45>
[2022-10-12] MEDS: Cyclobenzaprine HCl 10 MG TABLET PO (22:16)
[2022-10-12] MEDS: Acetaminophen 325 MG TABLET 975 MG PO (22:16)
[2022-10-12] MEDS: Ketorolac Tromethamine 30 MG/ML VIAL IM (22:17)
[2022-10-12] MEDS: dexAMETHasone 6 MG TABLET PO (22:26)
== END 2022-10-12 23:00 | disposition home or self-care (01) ==
PROVIDERS: Emergency Provider Emergency Medicine; PCP Internal Medicine
DX: M54.16 Radiculopathy, lumbar region (principal)
CPT/HCPCS: 96372; 99283; 99284; J1885; J8540

== ENCOUNTER 2023-01-26 21:02 | Emergency (ER) | payer OTHER, SELFPAY ==
--- NOTE | 2023-01-26 | ECG_ITS ---
Test Reason : headache Blood Pressure : / mmHG Vent. Rate : 104 BPM Atrial Rate : 104 BPM P-R Int : 138 ms QRS Dur : 086 ms QT Int : 324 ms P-R-T Axes : 016 027 014 degrees QTc Int : 426 ms Sinus tachycardia Nonspecific T wave abnormality Abnormal ECG When compared with ECG of 18-JAN-2021 14:20, No significant change was found Referred By: Generic ED Physician Electronically Signed By:JACKIE AGGARWAL
[2023-01-26 21:07] VITALS: BP 150/111; PULSE 105; RESP 18; TEMP 36.6; O2SAT 97; BMI 26.7
--- NOTE | 2023-01-26 21:41 | MHC.EDTECH ---
PATIENT EKG TAKEN AND WAS READ BY PROVIDER ,BLOOD DRAWN AND SENT TO LAB .
[2023-01-26 21:47] LABS: MANUAL DIFF FLAG NO
[2023-01-26 21:52] LABS: Basophils Percent Auto 0.3 % (0-2); Eosinophils Absolute Auto 0.1 X10*3/uL (0.0-0.4); Eosinophils Percent Auto 1.5 % (0-4); Hematocrit 44.3 % (42.0-52.0); Hemoglobin 15.6 g/dl (14.0-18.0); Imm Gran Abs Auto 0.02 X10*3/uL (0.00-0.03); Imm Gran Pct Auto 0.3 % (0.0-0.4); Lymphocytes Absolute Auto 2.4 X10*3/uL (1.2-4.9); Mean Corpuscular HGB Conc 35.2 g/dl (31.0-36.0); Mean Corpuscular Hemoglobin 30.1 pg (27.0-33.0); Mean Corpuscular Volume 85.5 fL (80.0-98.0); Mean Platelet Volume 11.2 fL (9.4-12.4); Monocytes Absolute Auto 0.5 X10*3/uL (0.1-1.2); Monocytes Percent Auto 7.3 % (2-11); Neutrophils Absolute Auto 4.3 x10*3/uL (2.0-8.3); Neutrophils Percent Auto 58.6 % (45-73); Platelet Count 187 X10*3/uL (160-400); Red Blood Count 5.18 X10*6/uL (4.60-5.80); Red Cell Distribution Width 12.3 % (11.0-16.0); White Blood Count 7.4 X10*3/uL (4.8-10.8)
[2023-01-26 22:01] LABS: Anion Gap 18 (12-20); Blood Urea Nitrogen 13 mg/dL (9-16); Calcium 10.1 mg/dL (8.4-10.2); Carbon Dioxide 23 mmol/L (22-29); Chloride 103 mmol/L (96-108); Creatinine Clr Calc Pharmacy 103.8; Estimated Glomerular Filt Rate > 60; Glucose Random 135 mg/dL (60-115); Potassium 3.8 mmol/L (3.3-5.1); Sodium 140 mmol/L (135-145)
[2023-01-26 22:12] LABS: Troponin-I High Sensitivity < 2.7 ng/L (<3.5-35.0)
[2023-01-27 00:09] VITALS: BP 143/88; PULSE 90; RESP 18; O2SAT 94
--- NOTE | 2023-01-27 00:11 | PC.NURSE ---
pt brought into room ED 16 from waiting room. pt resting comfortably on stretcher in no apparent distress. pt states very little pain in head currently, was worse at home earlier. denies nausea or vomiting in ED. pt waiting to be seen by ED provider. call pierce within reach, vital signs updated. will CTM.
--- NOTE | 2023-01-27 00:22 | ED.HA ---
HPI - Headache General Chief Complaint: Headache Stated Complaint: High blood pressure/Dizziness Time Seen by Provider: 01/26/23 23:50 Source: patient Mode of arrival: ambulatory Limitations: no limitations History of Present Illness HPI Narrative: Patient with frequent headaches does get headaches once or twice a week mostly in the frontal area associated with light sensitivity and nausea also did have history of hypertension blood blood pressure is controlled hence medication was discontinued diabetic on metformin blood sugar was slightly elevated so started on Trulicity last week today he comes as blood pressure was elevated to 150/111 repeat blood pressure was 143/88 Related Data Previous Rx's Medication Instructions Recorded atorvastatin 10 mg tablet 10 mg PO DAILY #90 tabs 09/14/22 cyclobenzaprine 10 mg tablet 10 mg PO TID PRN muscle spasm #10 10/12/22 tabs meloxicam 15 mg tablet 15 mg PO DAILY #14 tabs 10/12/22 FreeStyle Lite Meter #1 ea 01/19/23 (blood-glucose meter) FreeStyle Lite Strips (blood sugar #100 ea 01/19/23 diagnostic) dulaglutide 3 mg/0.5 mL 3 mg (0.5 mL) subcut QWEEK #2 mL 01/19/23 subcutaneous pen injector lancets 28 gauge (FreeStyle #100 ea 01/19/23 Lancets) metformin 1,000 mg tablet 1,000 mg PO BID 30 days #60 tabs 01/19/23 [id number] 1 cap PO Q6H PRN headache #20 caps 01/27/23 50 mg-300 mg-40 mg capsule (Fioricet) Allergies Allergy/AdvReac Type Severity Reaction Status Date / Time No Known Allergies Allergy Verified 01/19/23 15:06 [No Known Allergies*] Review of Systems Review of Systems: Yes all other systems are reviewed and are negative PMFSH Past Medical History Medical History Colonoscopy refused Erectile dysfunction associated with type 2 diabetes mellitus Hypovitaminosis D Left sciatic nerve pain Overweight (BMI 25.0-29.9) Pure hypercholesterolemia Type 2 diabetes mellitus with hyperglycemia Surgical History No pertinent past surgical history Family History Family History Brother Diabetes mellitus Sister Diabetes mellitus Mother Diabetes mellitus Father Medical history unknown Social History Social History Household Members: Family Housing: Apartment Alcohol intake: former Patient Tobacco Use Status: Never used Tobacco e-Cigarette/Vaping Use: Never Used Second Hand Smoke Exposure: Yes Advance Directives: Yes Advance Directives on File: Yes Advance Directives Date on File: 05/08/22 service: No Current occupational status: unemployed and disabled Cognitive needs: No Hearing needs: No Vision needs: No Physical Exam Vital Signs: Vital Signs: Last Vital Signs Temp 97.9 F 01/26/23 21:07 Pulse 90 01/27/23 00:09 Resp 18 01/27/23 00:09 BP 143/88 H 01/27/23 00:09 Pulse Ox 94 01/27/23 00:09 O2 Del Method Room Air 01/27/23 00:09 BMI result Body Mass Index 26.7 Appearance: Alert. Oriented X3. No acute distress. Eyes: PERRLA, No Nystagmus ENT: Pharynx normal. Oral Mucosa moist no temporal artery tenderness Neck: Normal inspection. Neck supple. CVS: Normal heart rate and rhythm. Pulses normal. Respiratory: No respiratory distress. Equal air entry bilateral, no wheezing/rales/rhonchi Abdomen: Soft and nontender. Bowel sounds are present, Skin: Skin warm and dry. Normal skin color. Normal skin turgor. Extremities: No lower extremity edema. No calf tenderness Neuro: Oriented X 3. No motor deficit. No sensory deficit.No cerebellar signs , cranial nerves II-XII intact Medications Administered Discontinued Medications Generic Name Dose Route Start Last Admin Trade Name Freq PRN Reason Stop Dose Admin Acetaminophen/Butalbital/Caffeine 1 tab 01/27/23 00:25 01/27/23 00:52 Butalb/Acetamin/Caff 50/325/40 Tablet PO 01/27/23 00:26 1 tab ONCE ONE Administration Ondansetron HCl 4 mg 01/27/23 00:26 01/27/23 00:52 Ondansetron Odt 4 Mg Tab.Rapdis TRANSLINGU 01/27/23 00:27 4 mg ONCE ONE Administration Medical Decision Making Medical Decision Making MDM Narrative: Patient's labs are stable blood sugar improved after Trulicity was started last week today lab showed blood sugar of 127 blood pressure improved during stay in the ER to 143/88 likely patient has migraine headache causing the increase in blood pressure will discharge patient home on Fioricet advised to follow-up with PCP Lab Data MDM Lab Attestation statement: I reviewed the patient's lab results. 01/26/23 21:41 01/26/23 21:41 Labs: Lab Results 01/26/23 01/26/23 01/26/23 Range/Units 21:41 21:41 21:41 WBC 7.4 (4.8-10.8) X10*3/uL RBC 5.18 (4.60-5.80) X10*6/uL Hgb 15.6 (14.0-18.0) g/dl Hct 44.3 (42.0-52.0) % MCV 85.5 (80.0-98.0) fL MCH 30.1 (27.0-33.0) pg MCHC 35.2 (31.0-36.0) g/dl RDW 12.3 (11.0-16.0) % Plt Count 187 (160-400) X10*3/uL MPV 11.2 (9.4-12.4) fL Immature Gran % (Auto) 0.3 (0.0-0.4) % Neut % (Auto) 58.6 (45-73) % Lymph % (Auto) 32.0 (20-40) % [place] % (Auto) 7.3 (2-11) % Eos % (Auto) 1.5 (0-4) % Baso % (Auto) 0.3 (0-2) % Lymph # (Auto) 2.4 (1.2-4.9) X10*3/uL [place] # (Auto) 0.5 (0.1-1.2) X10*3/uL Eos # (Auto) 0.1 (0.0-0.4) X10*3/uL Baso # (Auto) 0.0 (0.0-0.2) X10*3/uL Abs Immat Gran (auto) 0.02 (0.00-0.03) X10*3/uL Absolute Neuts (auto) 4.3 (2.0-8.3) x10*3/uL Absolute Nucleated RBC 0.000 (0.0-0.012) X10*3/uL Nucleated RBC % (auto) 0.0 (0.0-0.2) /100WBC Sodium 140 (135-145) mmol/L Potassium 3.8 (3.3-5.1) mmol/L Chloride 103 (96-108) mmol/L Carbon Dioxide 23 (22-29) mmol/L Anion Gap 18 (12-20) BUN 13 (9-16) mg/dL Creatinine 0.82 (0.5-1.4) mg/dL Estim Creat Clear Calc 103.8 Estimated GFR > 60 Random Glucose 135 H (60-115) mg/dL Calcium 10.1 D (8.4-10.2) mg/dL Troponin I High Sens < 2.7 (<3.5-35.0) ng/L Discharge Plan Discharge Clinical Impression: Migraine Patient Disposition: Home, Self-Care Instructions: Migraine Headache (ED) Additional Instructions: Continue medication for headache as prescribed your blood pressure is likely from the headache your blood sugar has improved after taking Trulicity follow up with PCP Contin?e con la medicaci?n para el dolor de rosalva seg?n lo prescrito. Es probable que [place] presi?n arterial se deba al dolor de rosalva. [place] nivel de az?car en la al fuller tracy despu?s de jeevan Trulicity seguimiento con PCP Prescriptions: New tszicpksqj-omxhrhzjbwrmp-brpu [Fioricet] 50-300-40 mg capsule 1 cap PO Q6H PRN (Reason: headache) Qty: 20 0RF No Action atorvastatin 10 mg tablet 10 mg PO DAILY Qty: 90 1RF cyclobenzaprine 10 mg tablet 10 mg PO TID PRN (Reason: muscle spasm) Qty: 10 0RF meloxicam 15 mg tablet 15 mg PO DAILY Qty: 14 0RF (DME) blood-glucose meter [FreeStyle Lite Meter] Kit See Rx Instructions .Route Qty: 1 0RF Rx Instructions: As directed- to test blood sugar two times a day. (DME) FreeStyle Lite Strips Strip See Rx Instructions .Route Qty: 100 5RF Rx Instructions: As directed-to test blood sugar two times a day. (DME) lancets [FreeStyle Lancets] 28 gauge misc See Rx Instructions .Route Qty: 100 5RF Rx Instructions: As directed-to test blood sugar two times a day. dulaglutide 3 mg/0.5 mL pen injector 3 mg subcut QWEEK Qty: 2 2RF metformin 1,000 mg tablet 1,000 mg PO BID 30 Days Qty: 60 2RF Interventions: ED Discharge Assessment Last Done: 01/27/23 00:54 Discharge Date/Time: 01/27/23 00:55 Print Language: Portuguese
[2023-01-27] MEDS: Ondansetron ODT 4 MG TAB.RAPDIS TRANSLINGU (00:52)
[2023-01-27] MEDS: Butalb/Acetamin/Caff 50/325/40 TABLET 1 TAB PO (00:52)
== END 2023-01-27 00:55 | disposition home or self-care (01) ==
PROVIDERS: Emergency Provider Internal Medicine; PCP Internal Medicine
DX: G43.909 Migraine, unspecified, not intractable, without status migrainosus (principal); R00.0 Tachycardia, unspecified; Z79.899 Other long term (current) drug therapy
CPT/HCPCS: 36415; 80048; 84484; 85025; 93005; 99283; 99284

== ENCOUNTER 2023-07-18 19:06 | Emergency (ER) | payer OTHER, SELFPAY ==
--- NOTE | 2023-07-18 | ECG_ITS ---
Test Reason : CP Blood Pressure : / mmHG Vent. Rate : 097 BPM Atrial Rate : 097 BPM P-R Int : 138 ms QRS Dur : 088 ms QT Int : 330 ms P-R-T Axes : 010 009 -20 degrees QTc Int : 419 ms Normal sinus rhythm Nonspecific T wave abnormality Abnormal ECG When compared with ECG of 26-JAN-2023 21:29, No significant change was found Referred By: Generic ED Physician Electronically Signed By:Etienne Ceballos
--- NOTE | ~2023-07-18 | XR_ITS ---
EXAMINATION: XR CHEST CLINICAL INFORMATION: Pain COMPARISON: 02/18/2016 TECHNIQUE: Frontal view of the chest was obtained. FINDINGS: No focal consolidation, pulmonary edema, or pleural effusion. Stable cardiomediastinal silhouette. XR/XR chest 1V IMPRESSION: No acute cardiopulmonary findings.
[2023-07-18 19:33] VITALS: BP 155/93; PULSE 98; RESP 18; TEMP 37.1; O2SAT 97; BMI 25.8
[2023-07-18 19:54] LABS: MANUAL DIFF FLAG NO
[2023-07-18 19:56] LABS: Basophils Percent Auto 0.3 % (0-2); Eosinophils Absolute Auto 0.1 X10*3/uL (0.0-0.4); Eosinophils Percent Auto 0.5 % (0-4); Hematocrit 39.9 % (42.0-52.0); Hemoglobin 13.9 g/dl (14.0-18.0); Imm Gran Abs Auto 0.02 X10*3/uL (0.00-0.03); Imm Gran Pct Auto 0.2 % (0.0-0.4); Lymphocytes Absolute Auto 1.5 X10*3/uL (1.2-4.9); Lymphocytes Percent Auto 13.9 % (20-40); Mean Corpuscular HGB Conc 34.8 g/dl (31.0-36.0); Mean Corpuscular Hemoglobin 30.2 pg (27.0-33.0); Mean Corpuscular Volume 86.7 fL (80.0-98.0); Mean Platelet Volume 11.3 fL (9.4-12.4); Monocytes Absolute Auto 0.9 X10*3/uL (0.1-1.2); Monocytes Percent Auto 8.3 % (2-11); Neutrophils Absolute Auto 8.5 x10*3/uL (2.0-8.3); Neutrophils Percent Auto 76.8 % (45-73); Platelet Count 145 X10*3/uL (160-400); Red Cell Distribution Width 11.9 % (11.0-16.0)
[2023-07-18 20:17] LABS: Alanine Aminotransferase 21 U/L (0-40); Albumin Level 4.1 g/dL (3.5-5.0); Alkaline Phosphatase 98 U/L (39-117); Anion Gap 14 (12-20); Aspartate Amino Transferase 13 U/L (5-37); Bilirubin Total 0.4 mg/dL (0.0-1.0); Blood Urea Nitrogen 13 mg/dL (9-16); Calcium 9.7 mg/dL (8.4-10.2); Carbon Dioxide 27 mmol/L (22-29); Chloride 103 mmol/L (96-108); Creatinine Clr Calc Pharmacy 60.9; Estimated Glomerular Filt Rate 53; Glucose Random 321 mg/dL (60-115); Potassium 4.1 mmol/L (3.3-5.1); Sodium 140 mmol/L (135-145); Total Protein 7.1 g/dL (6.5-8.0)
[2023-07-18 20:20] VITALS: BP 144/92; PULSE 83; RESP 11; TEMP 37.2; O2SAT 95
[2023-07-18 20:21] VITALS: PULSE 83
[2023-07-18 20:27] LABS: Troponin-I High Sensitivity < 2.7 ng/L (<3.5-35.0)
--- NOTE | 2023-07-18 20:48 | ED_ITS ---
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 His syptoms became worse today after he was called and told his son . He is not processing his feelings his states and holding them in. He states now he just wants to go home to be with his family. complaint: chest heaviness Onset (ago): day(s) (2) Timing of current episode: constant Prior episodes: No Onset: other (associated with emotional stress) Pain location: substernal Pain radiation: none Severity: mild Quality: tightness Relieving factors: nothing Exacerbating factors: stress Context: other (son became ill and has no today ) Associated symptoms: other (headache) Treatment prior to arrival: none Related Data Previous Rx's Medication Instructions Recorded cyclobenzaprine 10 mg tablet 10 mg PO TID PRN muscle spasm #10 10/12/22 tabs meloxicam 15 mg tablet 15 mg PO DAILY #14 tabs 10/12/22 FreeStyle Lite Meter #1 ea 01/19/23 (blood-glucose meter) FreeStyle Lite Strips (blood sugar #100 ea 01/19/23 diagnostic) dulaglutide 3 mg/0.5 mL 3 mg (0.5 mL) subcut QWEEK #2 mL 01/19/23 subcutaneous pen injector lancets 28 gauge (FreeStyle #100 ea 01/19/23 Lancets) zczvryyaje-qwrpqtjnhfhqj-mequrboj 1 cap PO Q6H PRN headache #20 caps 01/27/23 50 mg-300 mg-40 mg capsule (Fioricet) atorvastatin 10 mg tablet 10 mg PO DAILY #90 tabs 03/19/23 metformin 1,000 mg tablet 1,000 mg PO BID 30 days #60 tabs 07/15/23 Allergies Allergy/AdvReac Type Severity Reaction Status Date / Time No Known Allergies Allergy Verified 07/18/23 19:37 [No Known Allergies*] Review of Systems 2 Review of Systems: Constitutional : No Weight loss, No Fever, No Chills ENT/Mouth : No sore throat, No Rhinorrhea Eyes: No Eye Pain, No Swelling Cardiovascular : pos Chest Pain, no SOB, no Dyspnea on Exertion, No Orthopnea, No Edema, No Palpitations Respiratory : No Cough, No Sputum Gastrointestinal : no Nausea, No Vomiting, No Diarrhea, No abdominal Pain, No Hematochezia, No Melena Genitourinary : No Dysuria, No Urinary Frequency Musculoskeletal : No joint pain, No Myalgias, No Joint Swelling Skin : No Skin Lesions, No rash Neuro : No Weakness, No Numbness, No Dizziness, pos Headache Psych : No Anxiety/Panic, No Depression Heme/Lymph: No Bruising, No Lymphadenopathy Endocrine : No Polyuria, No Polydipsia All other systems reviewed and are negative [facility] Past Medical History Attestation statement: The following information was validated with the patient. Source: old records reviewed Medical History Colonoscopy refused Erectile dysfunction associated with type 2 diabetes mellitus Left sciatic nerve pain Hypovitaminosis D Pure hypercholesterolemia Overweight (BMI 25.0-29.9) Type 2 diabetes mellitus with hyperglycemia Surgical History No pertinent past surgical history Family History Family History Brother Diabetes mellitus Sister Diabetes mellitus Mother Diabetes mellitus Father Medical history unknown Social History Social History Household Members: Family Housing: Apartment Alcohol intake: former Patient Tobacco Use Status: Never used Tobacco Smoked in Last 30 Days: No e-Cigarette/Vaping Use: Never Used Second Hand Smoke Exposure: Yes Use of substances other than those prescribed or required for medical reasons: No Advance Directives: Yes Advance Directives on File: Yes Advance Directives Date on File: 05/08/22 service: No Current occupational status: unemployed and disabled Cognitive needs: No Hearing needs: No Vision needs: No Physical Exam 2 Vital Signs: Vital Signs: Last Vital Signs Temp 98.9 F 07/18/23 20:20 Pulse 83 07/18/23 20:20 Resp 11 L 07/18/23 20:20 BP 144/92 H 07/18/23 20:20 Pulse Ox 95 07/18/23 20:20 O2 Del Method Room Air 07/18/23 20:20 BMI result Body Mass Index 25.8 Appearance: Alert. Oriented X3. No acute distress. Sad appearing and sullen Eyes: Pupils equal, round and reactive to light. ENT: Pharynx normal. Neck: Normal inspection. Neck supple. CVS: Normal heart rate and rhythm. Pulses normal. Respiratory: No respiratory distress. Breath sounds normal. Abdomen: Soft and nontender. Skin: Skin warm and dry. Normal skin color. Normal skin turgor. Extremities: No lower extremity edema. No calf ttp Neuro: Oriented X 3. No motor deficit. No sensory deficit. Medical Decision Making Medical Decision Making [facility] Narrative: 58 yo male with PMH of DM, HLD here with chest tightness, headaches, anxiety for 2 days during sons illness - pain worse tonight after he got the call from [facility] that his son who was hospitalized there after a 3 year sandoval with cancer. His is here he is not processing his emotions she states. At this time atypical for VTE - no hypoxia or signs of DVT. Will obtain EKG, CXR, and troponin x 1 as pain > 6 hours. Suspect somatization and grief reaction. Differential Diagnosis Differential Diagnoses: The differential diagnosis associated with the presentation includes Admission/Observation Consideration of admission/observation: Escalation of care including admission/observation considered EKG unchanged, trop flat can be DC home Lab Data [facility] Lab Attestation statement: I reviewed the patient's lab results. 07/18/23 19:49 07/18/23 19:49 Labs: Lab Results 07/18/23 Range/Units 19:49 WBC 11.0 H (4.8-10.8) X10*3/uL RBC 4.60 (4.60-5.80) X10*6/uL Hgb 13.9 L (14.0-18.0) g/dl Hct 39.9 L (42.0-52.0) % MCV 86.7 (80.0-98.0) fL MCH 30.2 (27.0-33.0) pg MCHC 34.8 (31.0-36.0) g/dl RDW 11.9 (11.0-16.0) % Plt Count 145 L (160-400) X10*3/uL MPV 11.3 (9.4-12.4) fL Immature Gran % (Auto) 0.2 (0.0-0.4) % Neut % (Auto) 76.8 H (45-73) % Lymph % (Auto) 13.9 L (20-40) % [place] % (Auto) 8.3 (2-11) % Eos % (Auto) 0.5 (0-4) % Baso % (Auto) 0.3 (0-2) % Lymph # (Auto) 1.5 (1.2-4.9) X10*3/uL [place] # (Auto) 0.9 (0.1-1.2) X10*3/uL Eos # (Auto) 0.1 (0.0-0.4) X10*3/uL Baso # (Auto) 0.0 (0.0-0.2) X10*3/uL Abs Immat Gran (auto) 0.02 (0.00-0.03) X10*3/uL Absolute Neuts (auto) 8.5 H (2.0-8.3) x10*3/uL Absolute Nucleated RBC 0.000 (0.0-0.012) X10*3/uL Nucleated RBC % (auto) 0.0 (0.0-0.2) /100WBC Sodium 140 (135-145) mmol/L Potassium 4.1 (3.3-5.1) mmol/L Chloride 103 (96-108) mmol/L Carbon Dioxide 27 (22-29) mmol/L Anion Gap 14 (12-20) BUN 13 (9-16) mg/dL Creatinine 1.38 (0.5-1.4) mg/dL Estim Creat Clear Calc 60.9 Estimated GFR 53 Random Glucose 321 H (60-115) mg/dL Calcium 9.7 (8.4-10.2) mg/dL Total Bilirubin 0.4 (0.0-1.0) mg/dL AST 13 (5-37) U/L ALT 21 (0-40) U/L Alkaline Phosphatase 98 (39-117) U/L Troponin I High Sens < 2.7 (<3.5-35.0) ng/L Total Protein 7.1 (6.5-8.0) g/dL Albumin 4.1 (3.5-5.0) g/dL Independent Interpretation I performed an independent interpretation of an: EKG and Plain X-Ray (normal ) Interpretation: Rate: 97 Rhythm: NSR [place]: normal Normal P waves. Normal EVAN. Normal QRS complex. ST T wave : no DUARTE, inverted t waves III and aVF qTC: normal prior studies: unchanged from prior The study has been interpreted contemporaneously by me. . Radiology Impression Discussion of test interpretation with radiology: I have reviewed the radiologist's reading. Independent Historian Clinical information obtained from an independent historian. History obtained from or confirmed by: Spouse External Record Review External record reviewed: Office record Discharge Plan Discharge Clinical Impression: Atypical chest pain, Grief reaction Patient Disposition: Home, Self-Care Instructions: Chest Pain (ED), Grief and Loss (ED) Additional Instructions: return for worsening pain or any other concerns. we are sorry for you and your family's loss. your platelets were slightly low this has happened before - your doctor can recheck them in a week - it is mild Regrese si el dolor empeora o cualquier otra inquietud. Lamentamos la p?rdida de usted y [place] wallace. francisco plaquetas estaban ligeramente bajas esto [facility]er sucedido antes; [place] m?dico puede volver a controlarlas en ciaran semana; es leve Prescriptions: No Action atorvastatin 10 mg tablet 10 mg PO DAILY Qty: 90 1RF metformin 1,000 mg tablet 1,000 mg PO BID 30 Days Qty: 60 2RF cyclobenzaprine 10 mg tablet 10 mg PO TID PRN (Reason: muscle spasm) Qty: 10 0RF meloxicam 15 mg tablet 15 mg PO DAILY Qty: 14 0RF [id number]-[id number] [Fioricet] 50-300-40 mg capsule 1 cap PO Q6H PRN (Reason: headache) Qty: 20 0RF (DME) blood-glucose meter [FreeStyle Lite Meter] Kit See Rx Instructions .Route Qty: 1 0RF Rx Instructions: As directed- to test blood sugar two times a day. (DME) FreeStyle Lite Strips Strip See Rx Instructions .Route Qty: 100 5RF Rx Instructions: As directed-to test blood sugar two times a day. (DME) lancets [FreeStyle Lancets] 28 gauge misc See Rx Instructions .Route Qty: 100 5RF Rx Instructions: As directed-to test blood sugar two times a day. dulaglutide 3 mg/0.5 mL pen injector 3 mg subcut QWEEK Qty: 2 2RF Print Language: [place]
[2023-07-18] MEDS: LORazepam 1 MG TABLET PO (21:32)
[2023-07-18 21:33] VITALS: BP 160/90; PULSE 90; RESP 17; O2SAT 97
== END 2023-07-18 21:39 | disposition home or self-care (01) ==
PROVIDERS: Emergency Provider Emergency Medicine; PCP Internal Medicine
DX: R07.89 Other chest pain (principal); F43.29 Adjustment disorder with other symptoms; Z72.89 Other problems related to lifestyle; Z63.4 Disappearance and death of family member; E11.9 Type 2 diabetes mellitus without complications; E78.00 Pure hypercholesterolemia, unspecified; Z79.84 Long term (current) use of oral hypoglycemic drugs; Z79.85 Long-term (current) use of injectable non-insulin antidiabetic drugs; Z79.02 Long term (current) use of antithrombotics/antiplatelets
CPT/HCPCS: 36415; 71045; 80053; 84484; 85025; 93005; 99283; 99285

== ENCOUNTER → 2023-07-18 19:13 | Outpatient (BNV) | payer OTHER, SELFPAY | PROVIDERS: Emergency Provider Emergency Medicine; PCP Internal Medicine; Visit Provider Internal Medicine Cardiovascular Disease | DX: R94.31 Abnormal electrocardiogram [ECG] [EKG] (principal) | CPT/HCPCS: 93010 ==

== ENCOUNTER 2023-09-20 09:27 | Outpatient (AMB) | payer OTHER, SELFPAY ==
[2023-09-20 09:39] VITALS: BP 136/84; PULSE 89; O2SAT 97; BMI 26.3
--- NOTE | 2023-09-20 09:39 | A.OFFPC_ITS ---
Vital Signs 09/20/23 09:39 Height 5 ft 10 in Weight 183 lb 6 oz BMI 26.3 BP 136/84 Blood Pressure Location Lt brachial Position Sitting Pulse 89 Pulse Source Pulse Oximeter Pulse Oximetry (%) 97 Oxygen Delivery Method Room Air Intake Visit Reasons: Annual exam Trapper Animal Required: No Accompanied by: Self / Same As Patient Allergies No Known Allergies [No Known Allergies*] Allergy (Verified 09/20/23 10:12) Medication List - Last Reconciled 09/20/23 by Mahesh Mari MD atorvastatin 10 mg PO DAILY isfcefqlvk-cfwybfgachivv-hkzq 50-300-40 mg (Fioricet) 1 cap PO Q6H PRN cyclobenzaprine 10 mg PO TID PRN dulaglutide 3 mg (0.5 mL) subcut QWEEK FreeStyle Lite Meter (blood-glucose meter) As directed- to test blood sugar two times a day. NS FreeStyle Lite Strips (blood sugar diagnostic) As directed-to test blood sugar two times a day. NS lancets (FreeStyle Lancets) As directed-to test blood sugar two times a day. meloxicam 15 mg PO DAILY metformin 1,000 mg PO BID 30 days Tobacco use date assessed: 09/20/23 Dental Screening Dental Screen Date: 09/20/23 Did you have a dental visit in the last 12 months?: Yes Did you have a dental problem in the last 6 months where you did not have access to dental care?: No Was dental information given to patient?: Patient has dentist HPI Annual exam HPI Details Patient comes in today for his annual physical examination - was last seen by me for follow up a year ago in September 2022 States that he has been experiencing bilateral shoulder pains for the past 2 months now Notes that the pain feels worse at night and he sometimes can hardly sleep at night due to the shoulder pain States that he sometimes has trouble raising his arms all the way up because of the pain He denies any recent injury or trauma to his shoulders He denies any headaches or dizziness Denies any chest pains, no SOB No nausea/vomiting, no abdominal pain No change in bowel habits noted He denies any acute urinary symptoms Needs his Metformin Rx refilled Admits that he has not been taking his Trulicity for a while now as he recalls that he always feels very tired and drowsy after taking the injections a while back He also does not like needles and injections He has not had any follow up labs done recently; labs were last done in July 2023 when he went to the ER for chest pains He still has not gotten his Cologuard testing done - test has been ordered twice already in the past year He continues to decline going for a screening colonoscopy [facility] Medical History Colonoscopy refused Erectile dysfunction associated with type 2 diabetes mellitus Left sciatic nerve pain Hypovitaminosis D Pure hypercholesterolemia Overweight (BMI 25.0-29.9) Type 2 diabetes mellitus with hyperglycemia Surgical History No pertinent past surgical history Family History Brother Diabetes mellitus Sister Diabetes mellitus Mother Diabetes mellitus Father Medical history unknown Social History Household Members: Family Housing: Apartment Alcohol intake: former Patient Tobacco Use Status: Never used Tobacco e-Cigarette/Vaping Use: Never Used Second Hand Smoke Exposure: Yes Advance Directives Date on File: 05/08/22 service: No Current occupational status: unemployed and disabled Cognitive needs: No Hearing needs: No Vision needs: No Questionnaire PHQ-9 Over the last 2 weeks, how often have you been bothered by any of the following problems? 1. Little interest or pleasure in doing things: several days 2. Feeling down, depressed, or hopeless: several days 3. Trouble falling or staying asleep, or sleeping too much: several days 4. Feeling tired or having little energy: several days 5. Poor appetite or overeating: several days 6. Feeling bad about yourself - or that you are a failure or have let yourself or your family down: several days 7. Trouble concentrating on things, such as reading the newspaper or watching television: several days 8. Moving or speaking so slowly that other people could have noticed. Or the opposite - being so fidgety or restless that you have been moving around a lot more than usual: several days 9. Thoughts that you would be better off or of hurting yourself in some way: not at all Total score: 8 Depression Screening Interpretation: Positive Depression Screening Follow-up: Existing condition and Follow-up Visit Requested Depression Screening Done: Yes 21484 - PHQ-9 Billing: Yes Source: Developed by Drs. Marcos Ogden, Irais Louie, Evert Stephens and colleagues, with an educational les from [employer]. Thrive Questionnaire Date Thrive assessed: 09/20/23 I am a: Patient What is your living situation today?: I have a steady place to live Within the past 12 months, did the food you bought not last and you didn't have the money to get more?: Never true Within the past 12 months, did you worry whether your food would run out before you got money to buy more?: Never true Do you have trouble paying for medicines?: No Do you have trouble getting transportation to medical appointments?: No Do you have trouble paying your heating and electricity bill?: No Do you have trouble taking care of your child, family member or friend?: No Do you have trouble with day-to-day activities such as bathing, preparing meals, shopping, managing finances, etc.?: No Are you currently unemployed and looking for a job?: No Are you interested in more education?: No Please select the resources that you would like help with: None Currently or been in a relationship where the following occur: no concerns reported THRIVE Score: 0 AUDIT C Alcohol Use Questionnaire (AUDIT-C) 1. How often do you have a drink containing alcohol?: Never 3. How often do you have six or more drinks on one occasion?: Never Total Score: 0 Score Reviewed/Action Taken: Yes VALARIE-7 AMB Questionnaire VLAARIE-7 Date VALARIE - 7 assessed: 09/20/23 Feeling nervous, anxious, or on edge: 0 = Not at all Not being able to stop or control worryin = Not at all Worrying too much about different things: 0 = Not at all Trouble relaxin = Not at all Being so restless that it is hard to sit still: 0 = Not at all Becoming easily annoyed or irritable: 0 = Not at all Feeling afraid as if something awful might happen: 0 = Not at all Total VALARIE-7 score (0-4 normal; 5-9 mild; 10-14 moderate; 15-21 severe): 0 Source: Developed by Drs. Marcos Ogden, Irais Louie, Evert Stephens and colleagues, with an educational les from [employer]. Review of Systems Const Denies chills, Denies fatigue, Denies fever(s), Denies headache(s), Denies malaise and Denies weakness Eyes Denies blurry vision, Denies change in vision, Denies irritation and Denies itchy eyes ENT Denies dysphagia, Denies dizziness, Denies otalgia, Denies headache(s), Denies nasal congestion, Denies neck pain, Denies odynophagia and Denies sore throat Card Denies chest pain, Denies rapid heart rate, Denies irregular heart rhythm, Denies palpitations and Denies dyspnea Resp Denies chest congestion, Denies cough, Denies dyspnea and Denies wheezing GI Denies abdominal pain, Denies bloating, Denies constipation, Denies dysphagia, Denies heartburn, Denies diarrhea, Denies nausea, Denies odynophagia and Denies vomiting Denies hematuria, Denies difficulty urinating, Denies dysuria, Denies urinary frequency and Denies urinary urgency Musc Denies back pain, Reports arthralgias (over both shoulders lately - see HPI), Denies joint swelling, Denies muscle weakness and Denies neck pain Skin/Breast Denies change in pigmentation, Denies lesions, Denies rash and Denies unusual bruising Neuro Denies dizziness, Denies headache(s), Denies paresthesias and Denies weakness Endo Denies fatigue and Denies palpitations Aller/Immun Denies itchy eyes and Denies wheezing Physical exam (Primary Care) Vital Signs: Last Vital Signs Pulse 89 09/20/23 09:39 BP 136/84 09/20/23 09:39 Pulse Ox 97 09/20/23 09:39 Oxygen Delivery Method Room Air 09/20/23 09:39 BMI result Body Mass Index 26.3 Tobacco/Smoking Status: Tobacco use Status Tobacco use date assessed 09/20/23 09/20/23 09:40 Patient Tobacco Use Status Never used Tobacco 09/20/23 09:40 e-Cigarette/Vaping Use Never Used 09/20/23 09:40 PHQ-9: PHQ-9 Score PHQ-9: Total score 8 09/20/23 10:15 Depression Screening Interpretation: Positive Depression Screening Follow-up: Existing condition and Follow-up Visit Requested Thrive Assessment: Date of Thrive Assessment Date Thrive assessed 09/20/23 09/20/23 09:40 Currently or been in a relationship where the following occur: no concerns reported Const General: no acute distress, alert and awake Orientation/consciousness: patient oriented x3 HENMT Head: Yes normocephalic and Yes atraumatic Ears: external ears normal, TM's normal bilaterally and EAC's normal General nose exam: No nasal discharge present Face and sinus: Yes normal facial exam and Yes sinuses nontender Teeth and gingiva: dentition normal Throat: Yes posterior oropharynx normal and Yes tonsils normal (no TP congestion) Eyes Eyelids: Yes eyelids normal Conjunctivae: conjunctivae normal Pupils: Equal, round and reactive pupils present EOM: EOMs intact bilaterally Neck Neck: Yes no lymphadenopathy and Yes supple Thyroid: Thyroid normal Resp Auscultation: clear to auscultation bilaterally, no rales and no wheezes Cardio Rate: regular rate Rhythm: regular rhythm Heart sounds: no murmurs GI Palpation (GI): Soft to palpation, nontender and No hepatosplenomegaly present Auscultation: normal bowel sounds General: Yes no CVA tenderness Back/Spine/Pelvis Back: no CVA tenderness Thoracic/Lumbar Spine: thoracic and lumbar spine normal to inspection Skin Lesions: no lesions Rashes: no rashes Neuro General: patient oriented x3, moves all extremities, no focal motor deficits and CN's II-XI intact bilaterally Cranial nerves: Yes Equal, round and reactive pupils present Cognition (Neuro): normal cognition Gait exam (Neuro): Normal gait present Extrem General: Yes no clubbing, cyanosis or edema Right upper extremity: shoulder/upper arm Details: tenderness Location: of the A-C joint Left upper extremity: shoulder/upper arm Details: tenderness Location: of the A- C joint Assessment and Plan Assessment & Plan (1) Annual physical exam: Code(s): Z00.00 - Encounter for general adult medical examination without abnormal findings Plan: Check labs Patient continues to decline referral for a screening colonoscopy and would like to just get a Cologuard test done He is advised that the Cologuard testing has been ordered twice already in the past year but he failed to get any of them done even though patient states that he did receive the kit a couple of months ago Have advised him that we can order it again but he needs to get this done RAGHAVENDRA as soon as he receives the kit or [facility] may not agree to send him any more test kit if they are not getting the kit back when it is sent out (2) Type 2 diabetes mellitus with hyperglycemia: Code(s): E11.65 - Type 2 diabetes mellitus with hyperglycemia Qualifiers: Diabetes mellitus skilled nursing insulin use: without medical terminologist use Qualified Code(s): E11.65 - Type 2 diabetes mellitus with hyperglycemia Plan: Patient's HgbA1c was at 9.3% when it was last checked in January 2023 - goal is at least <7.0% Will have him get this rechecked along with all of his other labs RAGHAVENDRA Reinforced diabetic diet He is supposed to be on Metformin 1000 mg BID and Trulicity 1.5 mg SQ once a week BUT he admits to stopping his Trulicity a few months ago due to some side effects - states that he often felt very tired and sleepy on the days that he took his Trulicity injections Patient also now admits that he does not like injections and needles and prefers to avoid them as much as possible Will continue him on Metformin 1000 mg BID and start him additionally on Farxiga 10 mg Q AM; will D/C Trulicity Will recheck his labs and HgbA1c again in 3 months for follow up (3) Pure hypercholesterolemia: Code(s): E78.00 - Pure hypercholesterolemia, unspecified Plan: Reinforced low cholesterol diet Continue Atorvastatin 10 mg QD Will recheck his labs and fasting lipids in 3 months for follow up (4) Bilateral shoulder pain: Code(s): M25.511 - Pain in right shoulder; M25.512 - Pain in left shoulder Qualifiers: Chronicity: acute Qualified Code(s): M25.511 - Pain in right shoulder; M25.512 - Pain in left shoulder Plan: Patient is advised that his recent shoulder pains are most likely due to tendinitis/bursitis Will send him for x-rays of both shoulders RAGHAVENDRA for further evaluation (5) Insomnia: Code(s): G47.00 - Insomnia, unspecified Qualifiers: Insomnia type: unspecified Qualified Code(s): G47.00 - Insomnia, unspecified Plan: Sleep hygiene reinforced Continue Zolpidem 5 mg Q HS PRN (6) Overweight (BMI 25.0-29.9): Code(s): E66.3 - Overweight Plan: Reinforced diet/exercise as tolerated/lose weight (7) Colonoscopy refused: Code(s): Z53.20 - Procedure and treatment not carried out because of patient's decision for unspecified reasons Plan: He continues to decline referral for screening colonoscopy; states that he has NEVER had one done before and still does not wish to get one done at this time Agrees to getting a Cologuard testing done - test is ordered and patient is reminded that he really needs to get this done RAGHAVEDNRA Plan Follow up in 3 months Orders: Orders Lipid Panel Today E78.00 - Pure hypercholesterolemia, unspecified UA CC w/rflx Micro + Cult Today R30.0 - Dysuria Hemoglobin A1c 3 Months E11.9 - Type 2 diabetes mellitus without complications Complete Blood Count Auto Diff 3 Months D64.9 - Anemia, unspecified Hemoglobin A1c Today E11.9 - Type 2 diabetes mellitus without complications XR shoulder LT min 2V Today M25.511 - Pain in right shoulder, M25.512 - Pain in left shoulder XR shoulder RT min 2V Today M25.511 - Pain in right shoulder, M25.512 - Pain in left shoulder Complete Blood Count Auto Diff Today D64.9 - Anemia, unspecified Comprehensive [place]. Panel Fast Today E78.00 - Pure hypercholesterolemia, unspecified Microalbumin, Random (w Creat) Today E11.9 - Type 2 diabetes mellitus without complications TSH reflex Free T4 Today E78.00 - Pure hypercholesterolemia, unspecified Vitamin D 25-OH Total Today E55.9 - Vitamin D deficiency, unspecified Prostate Specific Antigen Today N40.0 - Benign prostatic hyperplasia without lower urinary tract symptoms Comprehensive [place]. Panel Fast 3 Months E78.00 - Pure hypercholesterolemia, unspecified Lipid Panel 3 Months E78.00 - Pure hypercholesterolemia, unspecified Referrals Cologuard Test Z12.11 - Encounter for screening for malignant neoplasm of colon, Z12.12 - Encounter for screening for malignant neoplasm of rectum Medications: New dapagliflozin propanediol (Farxiga) 10 mg PO QAM 30 tabs 3RF Refilled metformin 1,000 mg PO BID 30 days 60 tabs 2RF Coding Level of Care Code Est Pt Prev Care 40-64y(62793) Diagnoses Annual physical exam Z00.00 Type 2 diabetes mellitus with hyperglycemia, without long-term current use of insulin E11.65 Diabetes mellitus medical terminologist insulin use: without skilled nursing use Pure hypercholesterolemia E78.00 Acute pain of both shoulders M25.511; M25.512 Chronicity: acute Insomnia, unspecified type G47.00 Insomnia type: unspecified Overweight (BMI 25.0-29.9) E66.3 Colonoscopy refused Z53.20
== END 2023-09-20 10:24 | disposition home or self-care (01) ==
PROVIDERS: PCP Internal Medicine; Visit Provider Internal Medicine
DX: Z00.00 Encounter for general adult medical examination without abnormal findings (principal); E11.65 Type 2 diabetes mellitus with hyperglycemia; E78.00 Pure hypercholesterolemia, unspecified; E55.9 Vitamin D deficiency, unspecified; M25.511 Pain in right shoulder; M25.512 Pain in left shoulder; G47.00 Insomnia, unspecified; E66.3 Overweight; Z53.20 Procedure and treatment not carried out because of patient's decision for unspecified reasons
CPT/HCPCS: 99396

== ENCOUNTER 2024-01-07 09:44 | Outpatient (AMB) | payer OTHER, SELFPAY ==
[2024-01-07 09:47] VITALS: BP 140/84; PULSE 84; O2SAT 98; BMI 26.1
--- NOTE | 2024-01-07 09:47 | MHC.PC.OV ---
Vital Signs 01/07/24 09:47 Height 5 ft 10 in Weight 182 lb BMI 26.1 BP 140/84 H Blood Pressure Location Lt brachial Position Sitting Pulse 84 Pulse Source Pulse Oximeter Pulse Oximetry (%) 98 Oxygen Delivery Method Room Air Intake Visit Reasons: DM, hyperlipidemia- NEEDS A1C Check Processor Required: Yes Communications Superintendent: Present Allergies No Known Allergies [No Known Allergies*] Allergy (Verified 01/07/24 10:34) Medication List - Last Reconciled 01/07/24 by Mahesh Mair MD atorvastatin 10 mg PO DAILY unamgbttll-pphldkusnxugn-ilpo 50-300-40 mg (Fioricet) 1 cap PO Q6H PRN cyclobenzaprine 10 mg PO TID PRN dulaglutide 3 mg (0.5 mL) subcut QWEEK empagliflozin (Jardiance) 25 mg PO QAM FreeStyle Lite Meter (blood-glucose meter) As directed- to test blood sugar two times a day. NS FreeStyle Lite Strips (blood sugar diagnostic) As directed-to test blood sugar two times a day. NS lancets (FreeStyle Lancets) As directed-to test blood sugar two times a day. meloxicam 15 mg PO DAILY metformin 1,000 mg PO BID 30 days Tobacco use date assessed: 09/20/23 Dental Screening Dental Screen Date: 09/20/23 HPI DM, hyperlipidemia- NEEDS A1C HPI Details Patient comes in today for his follow up visit States that he has been having trouble sleeping at night lately States that he had to go back to [place] on an emergency basis a few months ago due to a couple of deaths in the family and that he just got back here [place] weeks ago - was not able to get any of his previously ordered labs, x-rays and Cologuard test done States that he has been experiencing increased anxiety lately and thinks that this is primarily the reason he cannot fall asleep at night as he feels that his mind is racing constantly and he cannot voluntarily stop it when he lies down in bed at night He denies any headaches or dizziness lately Denies any chest pains, no SOB No nausea/vomiting, no abdominal pain No change in bowel habits noted PFSH Medical History Colonoscopy refused Erectile dysfunction associated with type 2 diabetes mellitus Left sciatic nerve pain Hypovitaminosis D Pure hypercholesterolemia Overweight (BMI 25.0-29.9) Type 2 diabetes mellitus with hyperglycemia Surgical History No pertinent past surgical history Family History Brother Diabetes mellitus Sister Diabetes mellitus Mother Diabetes mellitus Father Medical history unknown Social History Household Members: Family Housing: Apartment Alcohol intake: former Patient Tobacco Use Status: Never used Tobacco e-Cigarette/Vaping Use: Never Used Second Hand Smoke Exposure: Yes Advance Directives Date on File: 05/08/22 service: No Current occupational status: unemployed and disabled Cognitive needs: No Hearing needs: No Vision needs: No Questionnaire Thrive Questionnaire Date Thrive assessed: 09/20/23 VALARIE-7 AMB Questionnaire VALARIE-7 Date VALARIE - 7 assessed: 09/20/23 Source: Developed by Drs. Marcos Ogden, Irais Louie, Evert Stephens and colleagues, with an educational les from [employer]. Review of Systems Const Denies chills, Reports difficulty sleeping (increasing), Denies fatigue, Denies fever(s) and Denies headache(s) ENT Denies dysphagia, Denies dizziness, Denies otalgia, Denies headache(s), Denies neck pain, Denies odynophagia and Denies sore throat Card Denies chest pain, Denies rapid heart rate, Denies irregular heart rhythm, Denies palpitations and Denies dyspnea Resp Denies cough, Denies dyspnea and Denies wheezing GI Denies abdominal pain, Denies constipation, Denies dysphagia, Denies heartburn, Denies diarrhea, Denies nausea, Denies odynophagia and Denies vomiting Denies hematuria, Denies difficulty urinating, Denies dysuria and Denies urinary frequency Musc Denies back pain, Reports arthralgias (over both shoulders ), Denies joint swelling and Denies neck pain Skin/Breast Denies rash Neuro Denies dizziness, Denies headache(s) and Denies paresthesias Psych Reports anxiety Endo Denies fatigue and Denies palpitations Aller/Immun Denies wheezing Physical exam (Primary Care) Vital Signs: Last Vital Signs Pulse 84 01/07/24 09:47 BP 140/84 H 01/07/24 09:47 Pulse Ox 98 01/07/24 09:47 Oxygen Delivery Method Room Air 01/07/24 09:47 BMI result Body Mass Index 26.1 Tobacco/Smoking Status: Tobacco use Status Tobacco use date assessed 09/20/23 01/07/24 09:51 Patient Tobacco Use Status Never used Tobacco 01/07/24 09:51 e-Cigarette/Vaping Use Never Used 01/07/24 09:51 Thrive Assessment: Date of Thrive Assessment Date Thrive assessed 09/20/23 01/07/24 09:51 Const General: no acute distress and alert HENMT Ears: TM's normal bilaterally and EAC's normal Throat: Yes posterior oropharynx normal and Yes tonsils normal (no TP congestion) Neck Neck: Yes no lymphadenopathy and Yes supple Thyroid: Thyroid normal Resp Auscultation: clear to auscultation bilaterally, no rales and no wheezes Cardio Rate: regular rate Rhythm: regular rhythm Heart sounds: no murmurs GI Palpation (GI): Soft to palpation and nontender Auscultation: normal bowel sounds General: Yes no CVA tenderness Back/Spine/Pelvis Back: no CVA tenderness Thoracic/Lumbar Spine: thoracic and lumbar spine normal to inspection Skin Rashes: no rashes Extrem General: Yes no clubbing, cyanosis or edema Right upper extremity: shoulder/upper arm Details: tenderness Location: of the A-C joint Left upper extremity: shoulder/upper arm Details: tenderness Location: of the A-C joint Results AMB Hemoglobin A1c AMB Hemoglobin A1c 11.1 % Last Edit by PRABHA Casas on 01/07/24 10:02 Results Reviewed Results Reviewed: Laboratory Last Values Hgb A1c (Clinic) 11.1 % (4.0-6.0) H 01/07/24 09:51 Assessment and Plan Assessment & Plan (1) Type 2 diabetes mellitus with hyperglycemia: Code(s): E11.65 - Type 2 diabetes mellitus with hyperglycemia Qualifiers: Diabetes mellitus exterminator insulin use: without group home use Qualified Code(s): E11.65 - Type 2 diabetes mellitus with hyperglycemia Plan: His in-office HgbA1c done today is at 11.1% (HgbA1c was at 9.3% back in January 2023) - goal is at least <7.0% Reinforced diabetic diet He is supposed to be on Metformin 1000 mg BID and Trulicity 1.5 mg SQ once a week BUT he admits to stopping his Trulicity a few months ago due to side effects - recalls that he often felt very tired and sleepy on the days that he took his Trulicity injection Patient also admits that he does not like injections and needles and prefers to avoid them as much as possible Continue Metformin 1000 mg BID; we started him additionally on Farxiga 10 mg Q AM a few months ago but patient states that he was never able to picker tender this Rx - will start him on Farxiga 10 mg Q AM again Will recheck his labs and HgbA1c in 3 months for follow up (2) Pure hypercholesterolemia: Code(s): E78.00 - Pure hypercholesterolemia, unspecified Plan: He was not able to get his follow up labs done previously and is instructed to go and get these done RAGHAVENDRA Reinforced low cholesterol diet Continue Atorvastatin 10 mg QD Will recheck his labs and fasting lipids in 3 months for follow up (3) Bilateral shoulder pain: Code(s): M25.511 - Pain in right shoulder; M25.512 - Pain in left shoulder Qualifiers: Chronicity: acute Qualified Code(s): M25.511 - Pain in right shoulder; M25.512 - Pain in left shoulder Plan: He is advised again that his recent shoulder pains are most likely due to tendinitis/bursitis Will send him for x-rays of both shoulders RAGHAVENDRA for further evaluation (4) Insomnia: Code(s): G47.00 - Insomnia, unspecified Qualifiers: Insomnia type: unspecified Qualified Code(s): G47.00 - Insomnia, unspecified Plan: Sleep hygiene reinforced He was previously on Zolpidem 5 mg Q HS PRN but has not been taking this for a while now Will start him instead on Trazodone 50 mg Q HS If this still does not help much, then we may need to actually address his anxiety issues and start him on some Rx for his anxiety (5) Overweight (BMI 25.0-29.9): Code(s): E66.3 - Overweight Plan: Reinforced diet/exercise as tolerated/lose weight Plan Patient also requested to have his Cologuard testing ordered again as his last one . Have advised that this is the 4th time we are ordering this now and he should get this done as soon as he receives his kit as [facility] may not agree to send him any more kits if this one expires again Follow up in 3 months Orders: Orders Complete Blood Count Auto Diff 3 Months D64.9 - Anemia, unspecified Comprehensive Hayes. Panel Fast 3 Months E78.00 - Pure hypercholesterolemia, unspecified Lipid Panel 3 Months E78.00 - Pure hypercholesterolemia, unspecified UA CC w/rflx Micro + Cult 3 Months R30.0 - Dysuria Hemoglobin A1c 3 Months E11.9 - Type 2 diabetes mellitus without complications AMB Hemoglobin A1c Today E11.65 - Type 2 diabetes mellitus with hyperglycemia Microalbumin, Random (w Creat) 3 Months E11.9 - Type 2 diabetes mellitus without complications Referrals Cologuard Test Z12.11 - Encounter for screening for malignant neoplasm of colon Medications: New dapagliflozin propanediol (Farxiga) 10 mg PO QAM 90 days 90 tabs 1RF trazodone 50 mg PO BEDTIME 30 days PRN 30 tabs 3RF sleep Discontinued dulaglutide Discontinued Reason: Patient no longer taking 3 mg (0.5 mL) subcut QWEEK 2 mL 2RF E11.65 - Type 2 diabetes mellitus with hyperglycemia Coding Level of Care Code Est Pt Level 4 (00484) Complex EM visit Add On G2211 Diagnoses Type 2 diabetes mellitus with hyperglycemia, without long-term current use of insulin E11.65 Diabetes mellitus group home insulin use: without exterminator use Pure hypercholesterolemia E78.00 Acute pain of both shoulders M25.511; M25.512 Chronicity: acute Insomnia, unspecified type G47.00 Insomnia type: unspecified Overweight (BMI 25.0-29.9) E66.3
== END 2024-01-07 10:48 | disposition home or self-care (01) ==
PROVIDERS: PCP Internal Medicine; Visit Provider Internal Medicine
DX: E11.65 Type 2 diabetes mellitus with hyperglycemia (principal); E78.00 Pure hypercholesterolemia, unspecified; M25.511 Pain in right shoulder; M25.512 Pain in left shoulder; G47.00 Insomnia, unspecified; E66.3 Overweight
CPT/HCPCS: 83036; 99214; G2211

== ENCOUNTER 2024-04-13 08:48 | Outpatient (REF) | payer OTHER, SELFPAY ==
--- NOTE | ~2024-04-13 | XR_ITS ---
EXAMINATION: XR SHOULDER, RIGHT XR SHOULDER, LEFT CLINICAL INFORMATION: Right and left shoulder pain. COMPARISON: Left shoulder radiographs dated 02/22/2019 and right shoulder radiograph dated 08/25/2010. TECHNIQUE: AP, Grashey, scapular Y, and axillary views of the right and left shoulder. FINDINGS: Right shoulder: Moderate acromioclavicular osteoarthritis. No glenohumeral joint space narrowing or marginal osteophytes. No fracture or dislocation. No osseous erosion. No abnormal soft tissue calcification. Left shoulder: Moderate acromioclavicular osteoarthritis, slightly progressed. Tiny glenohumeral marginal osteophytes. Enthesopathic spurring at the greater tuberosity, increased when compared to the prior examination. No osseous erosion. XR/XR shoulder LT min 2V IMPRESSION: RIGHT SHOULDER: Moderate acromioclavicular osteoarthritis. LEFT SHOULDER: Moderate acromioclavicular and minimal glenohumeral osteoarthritis, slightly progressed when compared to the prior examination. Enthesopathic spurring at the greater tuberosity, increased when compared to the prior examination. Electronically signed by: Jose Weber MD 04/19/2024 12:13 PM EDT
--- NOTE | ~2024-04-13 | XR_ITS ---
EXAMINATION: XR SHOULDER, RIGHT XR SHOULDER, LEFT CLINICAL INFORMATION: Right and left shoulder pain. COMPARISON: Left shoulder radiographs dated 02/22/2019 and right shoulder radiograph dated 08/25/2010. TECHNIQUE: AP, Grashey, scapular Y, and axillary views of the right and left shoulder. FINDINGS: Right shoulder: Moderate acromioclavicular osteoarthritis. No glenohumeral joint space narrowing or marginal osteophytes. No fracture or dislocation. No osseous erosion. No abnormal soft tissue calcification. Left shoulder: Moderate acromioclavicular osteoarthritis, slightly progressed. Tiny glenohumeral marginal osteophytes. Enthesopathic spurring at the greater tuberosity, increased when compared to the prior examination. No osseous erosion. XR/XR shoulder RT min 2V IMPRESSION: RIGHT SHOULDER: Moderate acromioclavicular osteoarthritis. LEFT SHOULDER: Moderate acromioclavicular and minimal glenohumeral osteoarthritis, slightly progressed when compared to the prior examination. Enthesopathic spurring at the greater tuberosity, increased when compared to the prior examination. Electronically signed by: Jose Weber MD 04/19/2024 12:13 PM EDT
[2024-04-13 09:08] LABS: MANUAL DIFF FLAG NO
[2024-04-13 09:31] LABS: Basophils Percent Auto 0.5 % (0-2); Eosinophils Percent Auto 0.7 % (0-4); Hematocrit 42.7 % (42.0-52.0); Hemoglobin 15.1 g/dl (14.0-18.0); Imm Gran Abs Auto 0.02 X10*3/uL (0.00-0.03); Imm Gran Pct Auto 0.3 % (0.0-0.4); Lymphocytes Absolute Auto 1.6 X10*3/uL (1.2-4.9); Lymphocytes Percent Auto 26.2 % (20-40); Mean Corpuscular HGB Conc 35.4 g/dl (31.0-36.0); Mean Corpuscular Hemoglobin 31.3 pg (27.0-33.0); Mean Corpuscular Volume 88.6 fL (80.0-98.0); Mean Platelet Volume 11.4 fL (9.4-12.4); Monocytes Absolute Auto 0.5 X10*3/uL (0.1-1.2); Monocytes Percent Auto 8.9 % (2-11); Neutrophils Absolute Auto 3.8 x10*3/uL (2.0-8.3); Neutrophils Percent Auto 63.4 % (45-73); Platelet Count 189 X10*3/uL (160-400); Red Blood Count 4.82 X10*6/uL (4.60-5.80); Red Cell Distribution Width 11.9 % (11.0-16.0)
[2024-04-13 09:41] LABS: Estimated Average Glucose 249 mg/dL; Hemoglobin A1c % 10.3 % (<6.0)
[2024-04-13 10:27] LABS: Alanine Aminotransferase 46 U/L (0-40); Albumin Level 4.3 g/dL (3.5-5.0); Alkaline Phosphatase 88 U/L (39-117); Anion Gap 12 (12-20); Aspartate Amino Transferase 21 U/L (5-37); Bilirubin Total 0.5 mg/dL (0.0-1.0); Blood Urea Nitrogen 16 mg/dL (9-16); Calcium 9.9 mg/dL (8.4-10.2); Carbon Dioxide 28 mmol/L (22-29); Chloride 103 mmol/L (96-108); Cholesterol 190 mg/dL (<200); Estimated Glomerular Filt Rate > 60; Glucose Fasting 299 mg/dL (60-99); HDL Cholesterol 35 mg/dL (>40); LDL Cholesterol Calculated 124 mg/dL (<100); Sodium 139 mmol/L (135-145); Total Protein 7.3 g/dL (6.5-8.0); Triglycerides 155 mg/dL (<150)
[2024-04-13 10:35] LABS: Prostate Specific Antigen 0.51 ng/mL (<0.05-4.0); TSH reflex Free T4 1.36 uIU/mL (0.32-4.0); Vitamin D 25-OH Total 25.5 ng/mL (>30)
[2024-04-13 10:36] LABS: Appearance Urine Clear; Color Urine Yellow; Glucose Urine UA >=1000 mg/dL (Negative); Leukocyte Esterase Urine Negative (Negative); Nitrite Urine Negative (Negative); PH 6.5 (5.0-9.0); Specific Gravity - Urine 1.025 (1.005-1.025); UMIC TRIGGER UACC YES; Urine Blood Negative (Negative); Urine Ketones Negative (Negative); Urine Protein Negative (Neg-Trace)
[2024-04-13 10:42] LABS: Bacteria Urine None Seen (None Seen); Hyaline Casts Urine 0-2 /LPF (0-2); RBC Urine 0-2 /HPF (0-2); Squamous Epithelial Cell Urine 0-2 /HPF (0-2); WBC Urine 0-5 /HPF (0-5)
[2024-04-13 11:06] LABS: Creatinine Urine 54.29 mg/dL; Microalbum/Creatinine Ratio Ur 44.2 ug/mg cr (<30)
== END 2024-04-13 08:49 | disposition home or self-care (01) ==
LOC: HO.XRAY 08:48
PROVIDERS: PCP Internal Medicine; Visit Provider Internal Medicine
DX: D64.9 Anemia, unspecified (principal); E78.00 Pure hypercholesterolemia, unspecified; E11.9 Type 2 diabetes mellitus without complications; N40.0 Benign prostatic hyperplasia without lower urinary tract symptoms; E55.9 Vitamin D deficiency, unspecified; M25.511 Pain in right shoulder; M25.512 Pain in left shoulder
CPT/HCPCS: 36415; 73030; 80053; 80061; 81001; 82043; 82306; 82570; 83036; 84153; 84443; 85025

== ENCOUNTER 2024-04-14 12:50 | Outpatient (AMB) | payer OTHER, SELFPAY ==
--- NOTE | 2024-04-14 12:53 | A.OFFPC_ITS ---
Vital Signs 04/14/24 12:54 Height 5 ft 10 in Weight 180 lb 8 oz BMI 25.9 BP 134/82 Blood Pressure Location Lt brachial Position Sitting Pulse 96 Pulse Source Pulse Oximeter Pulse Oximetry (%) 96 Oxygen Delivery Method Room Air Intake Visit Reasons: DM, hyperlipidemia, insomnia, anxiety [employer] Real [employer] Manager Required: Yes Accompanied by: Friend Allergies No Known Allergies [No Known Allergies*] Allergy (Verified 04/14/24 13:06) Medication List - Last Reconciled 04/14/24 by Mahesh Mari MD atorvastatin 10 mg PO DAILY aauumqwspa-xcxqjyhtnftrh-jbnk 50-300-40 mg (Fioricet) 1 cap PO Q6H PRN cyclobenzaprine 10 mg PO TID PRN dapagliflozin propanediol (Farxiga) 10 mg PO QAM 90 days FreeStyle Lite Meter (blood-glucose meter) As directed- to test blood sugar two times a day. NS FreeStyle Lite Strips (blood sugar diagnostic) As directed-to test blood sugar two times a day. NS lancets (FreeStyle Lancets) As directed-to test blood sugar two times a day. meloxicam 15 mg PO DAILY metformin 1,000 mg PO BID 30 days trazodone 50 mg PO BEDTIME PRN 30 days Tobacco use date assessed: 04/14/24 Dental Screening Dental Screen Date: 04/14/24 Did you have a dental visit in the last 12 months?: No Did you have a dental problem in the last 6 months where you did not have access to dental care?: No Was dental information given to patient?: No HPI DM, hyperlipidemia, insomnia, anxiety HPI Details Patient comes in today for his follow up visit States that he feels okay except for increased pain over his right lower side, which he states has been going on for a couple of weeks now Recalls that the pain started after he tried picking up a whole case of water bottles about 2 weeks ago Notes that he also has sharp pains radiating down his right hip and right leg on and off lately States that he's had problems (pain) over his lower back in the past and is currently not sure if the pain on his right lower side is related at all to the pain shooting down his right leg or not He also continues to experience frequent pains in both shoulders and would like to know how his shoulder x-rays done ysterday came out He denies any headaches or dizziness Denies any chest pains, no SOB No nausea/vomiting, no abdominal pain No change in bowel habits noted Adds that he's had a recurrent itchy rash over both of his thighs (anteromedially) lately - states that he is a diabetic and he is not sure if the rash is because of his diabetes He had his follow up labs done yesterday - to discuss his results [facility] Medical History Colonoscopy refused Erectile dysfunction associated with type 2 diabetes mellitus Left sciatic nerve pain Hypovitaminosis D Pure hypercholesterolemia Overweight (BMI 25.0-29.9) Type 2 diabetes mellitus with hyperglycemia Surgical History No pertinent past surgical history Family History Brother Diabetes mellitus Sister Diabetes mellitus Mother Diabetes mellitus Father Medical history unknown Social History Household Members: Family Housing: Apartment Alcohol intake: former Patient Tobacco Use Status: Never used Tobacco e-Cigarette/Vaping Use: Never Used Second Hand Smoke Exposure: Yes Advance Directives Date on File: 05/08/22 service: No Current occupational status: unemployed and disabled Cognitive needs: No Hearing needs: No Vision needs: No Questionnaire PHQ-9 Over the last 2 weeks, how often have you been bothered by any of the following problems? 1. Little interest or pleasure in doing things: several days 2. Feeling down, depressed, or hopeless: several days 3. Trouble falling or staying asleep, or sleeping too much: several days 4. Feeling tired or having little energy: several days 5. Poor appetite or overeating: several days 6. Feeling bad about yourself - or that you are a failure or have let yourself or your family down: several days 7. Trouble concentrating on things, such as reading the newspaper or watching television: several days 8. Moving or speaking so slowly that other people could have noticed. Or the opp osite - being so fidgety or restless that you have been moving around a lot more than usual: several days 9. Thoughts that you would be better off or of hurting yourself in some way: not at all Total score: 8 Depression Screening Interpretation: Positive Depression Screening Follow-up: Existing condition and Follow-up Visit Requested Depression Screening Done: Yes 07175 - PHQ-9 Billing: Yes Source: Developed by Drs. Marcos Ogden, Irais Louie, Evert Stephens and colleagues, with an educational les from [employer]. Thrive Questionnaire Date Thrive assessed: 04/14/24 I am a: Patient What is your living situation today?: I have a steady place to live Within the past 12 months, did the food you bought not last and you didn't have the money to get more?: Never true Within the past 12 months, did you worry whether your food would run out before you got money to buy more?: Never true Do you have trouble paying for medicines?: No Do you have trouble getting transportation to medical appointments?: No Do you have trouble paying your heating and electricity bill?: No Do you have trouble taking care of your child, family member or friend?: No Do you have trouble with day-to-day activities such as bathing, preparing meals, shopping, managing finances, etc.?: No Are you currently unemployed and looking for a job?: No Are you interested in more education?: No Please select the resources that you would like help with: None Currently or been in a relationship where the following occur: No concerns reported THRIVE Score: 0 AUDIT C Alcohol Use Questionnaire (AUDIT-C) 2. How many drinks containing alcohol do you have on a typical day when you are drinking?: 1 or 2 3. How often do you have six or more drinks on one occasion?: Never Total Score: 0 Score Reviewed/Action Taken: Yes VALARIE-7 AMB Questionnaire VALARIE-7 Date VALARIE - 7 assessed: 04/14/24 Feeling nervous, anxious, or on edge: 0 = Not at all Not being able to stop or control worryin = Not at all Worrying too much about different things: 0 = Not at all Trouble relaxin = Not at all Being so restless that it is hard to sit still: 0 = Not at all Becoming easily annoyed or irritable: 0 = Not at all Feeling afraid as if something awful might happen: 0 = Not at all Total VALARIE-7 score (0-4 normal; 5-9 mild; 10-14 moderate; 15-21 severe): 0 Source: Developed by Drs. Marcos Ogden, Irais Louie, Evert Stephens and colleagues, with an educational les from [employer]. Review of Systems Const Denies chills, Reports difficulty sleeping, Denies fatigue, Denies fever(s) and Denies headache(s) ENT Denies dysphagia, Denies dizziness, Denies otalgia, Denies headache(s), Denies neck pain, Denies odynophagia and Denies sore throat Card Denies chest pain, Denies irregular heart rhythm, Denies palpitations and Denies dyspnea Resp Denies cough, Denies dyspnea and Denies wheezing GI Denies abdominal pain, Denies constipation, Denies dysphagia, Denies heartburn, Denies diarrhea, Denies nausea, Denies odynophagia and Denies vomiting Denies hematuria, Denies difficulty urinating, Denies dysuria and Denies urinary frequency Musc Details: (+) pain over the lower right side for the past couple of weeks Reports back pain (over the lower back - on and off), Reports arthralgias (over both shoulders ), Denies joint swelling and Denies neck pain Skin/Breast Reports rash ((+) recurrent itchy rash over his thighs on both sides - see HPI) Neuro Denies dizziness, Denies headache(s) and Denies paresthesias Psych Reports anxiety Endo Denies fatigue and Denies palpitations Aller/Immun Denies wheezing Physical exam (Primary Care) Vital Signs: Last Vital Signs Pulse 96 04/14/24 12:54 BP 134/82 04/14/24 12:54 Pulse Ox 96 04/14/24 12:54 Oxygen Delivery Method Room Air 04/14/24 12:54 BMI result Body Mass Index 25.9 Tobacco/Smoking Status: Tobacco use Status Tobacco use date assessed 04/14/24 04/14/24 12:59 Patient Tobacco Use Status Never used Tobacco 04/14/24 12:59 e-Cigarette/Vaping Use Never Used 04/14/24 12:59 PHQ-9: PHQ-9 Score PHQ-9: Total score 8 04/14/24 12:59 Depression Screening Interpretation: Positive Depression Screening Follow-up: Existing condition and Follow-up Visit Requested Thrive Assessment: Date of Thrive Assessment Date Thrive assessed 04/14/24 04/14/24 12:59 Currently or been in a relationship where the following occur: No concerns reported Const General: no acute distress and alert HENMT Ears: TM's normal bilaterally and EAC's normal Throat: Yes posterior oropharynx normal and Yes tonsils normal (no TP congestion) Neck Neck: Yes no lymphadenopathy and Yes supple Thyroid: Thyroid normal Resp Auscultation: clear to auscultation bilaterally, no rales and no wheezes Cardio Rate: regular rate Rhythm: regular rhythm Heart sounds: no murmurs GI Palpation (GI): Soft to palpation and nontender Auscultation: normal bowel sounds General: Yes no CVA tenderness Back/Spine/Pelvis Other: (+) tenderness on palpation over the lower right thorax laterally, with (+) tenderness noted on palpation over the right lower ribs laterally as well; no guarding noted Back: no CVA tenderness Thoracic/Lumbar Spine: lumbar spinal tenderness Skin Rashes: no rashes Extrem General: Yes no clubbing, cyanosis or edema Right upper extremity: shoulder/upper arm Details: tenderness Location: of the A-C joint Left upper extremity: shoulder/upper arm Details: tenderness Location: of the A- C joint Results Reviewed Results Reviewed: Laboratory Tests 04/13/24 04/13/24 09:05 09:07 WBC 6.0 Hgb 15.1 Hct 42.7 Plt Count 189 D Sodium 139 Potassium 4.0 Creatinine 0.95 Estimated GFR > 60 Fasting Glucose 299 H Hemoglobin A1c % 10.3 H Calcium 9.9 AST 21 ALT 46 H Triglycerides 155 H Cholesterol 190 LDL Cholesterol, Calc 124 H HDL Cholesterol 35 L Prostate Specific Ag 0.51 25-OH Vitamin D Total 25.5 L TSH 1.36 Ur Specific [place] 1.025 Urine Protein Negative Urine Glucose (UA) >=1000 H Urine Blood Negative Urine Nitrite Negative Ur Leukocyte Esterase Negative Microalb/Creat Ratio 44.2 H Assessment and Plan Assessment & Plan (1) Type 2 diabetes mellitus with hyperglycemia: Code(s): E11.65 - Type 2 diabetes mellitus with hyperglycemia Qualifiers: Diabetes mellitus long term care administrator insulin use: without senior care use Qualified Code(s): E11.65 - Type 2 diabetes mellitus with hyperglycemia Plan: His HgbA1c was at 10.3% on his labs done yesterday (in-office HgbA1c was at 11.1% a few months ago) - goal is at least <7.0% Reinforced diabetic diet Continue Metformin 1000 mg BID and Farxiga 10 mg Q AM He used to take Trulicity 1.5 mg SQ once a week BUT he admitted to stopping his Trulicity on his own due to side effects - recalls that he often felt very tired and sleepy on the days that he took his Trulicity injection Patient also admits that he does not like injections and needles and prefers to avoid them as much as possible Will recheck his labs and HgbA1c in 3 months for follow up (2) Pure hypercholesterolemia: Code(s): E78.00 - Pure hypercholesterolemia, unspecified Plan: Results of his labs done yesterday reviewed and discussed with patient - he is advised that his cholesterol levels have increased from previous Reinforced low cholesterol diet Continue Atorvastatin 10 mg QD for now Will recheck his labs and fasting lipids in 3 months for follow up - he is advised that if his cholesterol numbers do not improve significantly at his next follow up visit, then we will need to increase the dosage of his cholesterol Rx (3) Bilateral shoulder pain: Code(s): M25.511 - Pain in right shoulder; M25.512 - Pain in left shoulder Qualifiers: Chronicity: acute Qualified Code(s): M25.511 - Pain in right shoulder; M25.512 - Pain in left shoulder Plan: He is advised again that his recent shoulder pains are most likely due to tendinitis/bursitis He was previously sent for x-rays of both shoulders for further evaluation but he just had these done yesteray - results are still pending at this time (4) Right lateral abdominal pain: Code(s): R10.9 - Unspecified abdominal pain Plan: Discussed that this is probably due to some musculoskeletal strain, based on his narrative as to how this pain started Will start him for now on Lidocaine 5% patches QD PRN Advised that he can also try applying some warm compress over his right lower side PRN for symptomatic relief (5) Low back pain: Code(s): M54.50 - Low back pain, unspecified Qualifiers: Chronicity: unspecified Back pain laterality: midline Sciatica presence: without sciatica Qualified Code(s): M54.50 - Low back pain, unspecified Plan: Reinforced activity and weight-lifting restrictions It is unclear at this time whether his recent right lumbar radicular pain is related to his previous lower back issues and / or to his recent right-sided pain Will send him for x-rays of the thoracic and lumbar spine RAGHAVENDRA for further evaluation (6) Pruritic erythematous rash: Code(s): L29.8 - Other pruritus Plan: Will start him for now on Nystatin cream TID to rash PRN (7) Insomnia: Code(s): G47.00 - Insomnia, unspecified Qualifiers: Insomnia type: unspecified Qualified Code(s): G47.00 - Insomnia, unspecified Plan: Sleep hygiene reinforced Continue Trazodone 50 mg Q HS If this still does not help much, then we may need to actually address his anxiety issues and start him on some Rx for his anxiety (8) Overweight (BMI 25.0-29.9): Code(s): E66.3 - Overweight Plan: Reinforced diet/exercise as tolerated/lose weight Plan Follow up in 3 months Orders: Orders XR thoracic spine 3V Today M54.9 - Dorsalgia, unspecified Lipid Panel 3 Months E78.00 - Pure hypercholesterolemia, unspecified Comprehensive [place]. Panel Fast 3 Months E78.00 - Pure hypercholesterolemia, unspecified UA CC w/rflx Micro + Cult 3 Months R30.0 - Dysuria Erythrocyte Sedimentation Rate 3 Months M54.50 - Low back pain, unspecified XR lumbar spine 2-3V Today M54.50 - Low back pain, unspecified Hemoglobin A1c 3 Months E11.9 - Type 2 diabetes mellitus without complications Complete Blood Count Auto Diff 3 Months D64.9 - Anemia, unspecified Microalbumin, Random (w Creat) 3 Months E11.9 - Type 2 diabetes mellitus without complications Vitamin D 25-OH Total 3 Months E55.9 - Vitamin D deficiency, unspecified Medications: New nystatin 1 appl topical TID 10 days 60 grams 3RF lidocaine 5% leave on most painful area for up to 12 hrs 1 patch topical DAILY 30 days PRN 30 ea 0RF pain Coding Level of Care Code Est Pt Level 4 (04329) Complex EM visit Add On G2211 Diagnoses Type 2 diabetes mellitus with hyperglycemia, without long-term current use of insulin E11.65 Diabetes mellitus long term care administrator insulin use: without senior care use Pure hypercholesterolemia E78.00 Acute pain of both shoulders M25.511; M25.512 Chronicity: acute Right lateral abdominal pain R10.9 Midline low back pain without sciatica, unspecified chronicity M54.50 Chronicity: unspecified Back pain laterality: midline Sciatica presence: without sciatica Pruritic erythematous rash L29.8 Insomnia, unspecified type G47.00 Insomnia type: unspecified Overweight (BMI 25.0-29.9) E66.3
[2024-04-14 12:54] VITALS: BP 134/82; PULSE 96; O2SAT 96; BMI 25.9
== END 2024-04-14 13:26 | disposition home or self-care (01) ==
PROVIDERS: PCP Internal Medicine; Visit Provider Internal Medicine
DX: E11.65 Type 2 diabetes mellitus with hyperglycemia (principal); E78.00 Pure hypercholesterolemia, unspecified; M25.511 Pain in right shoulder; M25.512 Pain in left shoulder; R10.9 Unspecified abdominal pain; M54.50 Low back pain, unspecified; L29.8 Other pruritus; G47.00 Insomnia, unspecified; E66.3 Overweight
CPT/HCPCS: 99214; G2211

== ENCOUNTER 2024-12-08 13:44 | Outpatient (AMB) | payer OTHER, SELFPAY ==
[2024-12-08 13:48] VITALS: BP 130/82; PULSE 97; O2SAT 98; BMI 25.9
--- NOTE | 2024-12-08 13:48 | MHC.PC.OV ---
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 NS FreeStyle Lite Strips (blood sugar diagnostic) As directed-to test blood sugar two times a day. NS lancets (FreeStyle Lancets) As directed-to test blood sugar two times a day. lidocaine 5% 1 patch topical DAILY PRN 30 days meloxicam 15 mg PO DAILY metformin 1,000 mg PO BID 30 days nystatin 1 appl topical TID 10 days trazodone 50 mg PO BEDTIME PRN 30 days Tobacco use date assessed: 12/08/24 Dental Screening Dental Screen Date: 12/08/24 [facility] Annual Exam HPI Details Patient comes in today for his annual physical examination States that he feels okay except for recurrent pain over his right lower back, which he states has been bothering him for at least a couple of years now Notes that the pain sometimes radiate down his right thigh and feels that his right lower back pain has been gradually getting worse lately He does not recall any recent injury or trauma to his lower back and has not had any imaging studies or x-rays done on his lower back in years now He denies any headaches or dizziness Denies any chest pains, no shortness of breath No nausea/vomiting, no abdominal pain No change in bowel habits noted He denies any acute urinary symptoms He was not able to get any follow-up labs done recently and has not had any other labs done since April 2024 Patient has declined offer to refer him for a screening colonoscopy and he has never had one done in the past - he continues to decline offer to refer him for a colonoscopy during today's physical [facility] Medical History Colonoscopy refused Erectile dysfunction associated with type 2 diabetes mellitus Left sciatic nerve pain Hypovitaminosis D Pure hypercholesterolemia Overweight (BMI 25.0-29.9) Type 2 diabetes mellitus with hyperglycemia Surgical History No pertinent past surgical history Family History Brother Diabetes mellitus Sister Diabetes mellitus Mother Diabetes mellitus Father Medical history unknown Social History Household Members: Family Housing: Apartment Alcohol intake: former Patient Tobacco Use Status: Never used Tobacco e-Cigarette/Vaping Use: Never Used Second Hand Smoke Exposure: Yes Advance Directives Date on File: 05/08/22 service: No Current occupational status: unemployed and disabled Cognitive needs: No Hearing needs: No Vision needs: No Questionnaire PHQ-9 Over the last 2 weeks, how often have you been bothered by any of the following problems? 1. Little interest or pleasure in doing things: nearly every day 2. Feeling down, depressed, or hopeless: not at all 3. Trouble falling or staying asleep, or sleeping too much: several days 4. Feeling tired or having little energy: several days 5. Poor appetite or overeating: not at all 6. Feeling bad about yourself - or that you are a failure or have let yourself or your family down: not at all 7. Trouble concentrating on things, such as reading the newspaper or watching television: not at all 8. Moving or speaking so slowly that other people could have noticed. Or the opposite - being so fidgety or restless that you have been moving around a lot more than usual: not at all 9. Thoughts that you would be better off or of hurting yourself in some way: not at all Total score: 5 Depression Screening Interpretation: Positive Depression Screening Follow-up: Existing condition and Follow-up Visit Requested Depression Screening Done: Yes 82663 - PHQ-9 Billing: Yes Source: Developed by Drs. Marcos Ogden, Irais Louie, Evert Stephens and colleagues, with an educational les from [employer]. Thrive Questionnaire Date Thrive assessed: 12/08/24 I am a: Patient What is your living situation today?: I have a steady place to live Within the past 12 months, did the food you bought not last and you didn't have the money to get more?: Never true Within the past 12 months, did you worry whether your food would run out before you got money to buy more?: Never true Do you have trouble paying for medicines?: No Do you have trouble getting transportation to medical appointments?: No Do you have trouble paying your heating and electricity bill?: No Do you have trouble taking care of your child, family member or friend?: No Do you have trouble with day-to-day activities such as bathing, preparing meals, shopping, managing finances, etc.?: No Are you currently unemployed and looking for a job?: No Are you interested in more education?: No Please select the resources that you would like help with: None Currently or been in a relationship where the following occur: No concerns reported THRIVE Score: 0 AUDIT C Alcohol Use Questionnaire (AUDIT-C) 1. How often do you have a drink containing alcohol?: Monthly or less 2. How many drinks containing alcohol do you have on a typical day when you are drinking?: 1 or 2 3. How often do you have six or more drinks on one occasion?: Never Total Score: 1 Score Reviewed/Action Taken: Yes VALARIE-7 AMB Questionnaire VALARIE-7 Date VALARIE - 7 assessed: 12/08/24 Feeling nervous, anxious, or on edge: 0 = Not at all Not being able to stop or control worryin = Not at all Worrying too much about different things: 0 = Not at all Trouble relaxin = Not at all Being so restless that it is hard to sit still: 0 = Not at all Becoming easily annoyed or irritable: 0 = Not at all Feeling afraid as if something awful might happen: 0 = Not at all Total VALARIE-7 score (0-4 normal; 5-9 mild; 10-14 moderate; 15-21 severe): 0 Source: Developed by Irais Rivers, Evert Stephens and colleagues, with an educational les from [employer]. Review of Systems Const Denies chills, Denies fatigue, Denies fever(s), Denies headache(s), Denies malaise and Denies weakness Eyes Denies blurry vision, Denies change in vision, Denies irritation and Denies itchy eyes ENT Denies dysphagia, Denies dizziness, Denies otalgia, Denies headache(s), Denies nasal congestion, Denies neck pain, Denies odynophagia and Denies sore throat Card Denies rapid heart rate, Denies irregular heart rhythm, Denies palpitations and Denies dyspnea Resp Denies chest congestion, Denies cough, Denies dyspnea and Denies wheezing GI Denies abdominal pain, Denies bloating, Denies constipation, Denies dysphagia, Denies heartburn, Denies diarrhea, Denies nausea, Denies odynophagia and Denies vomiting Denies hematuria, Denies difficulty urinating, Denies dysuria, Denies urinary frequency and Denies urinary urgency Musc Reports back pain (increased over the right lower back, pain radiates down R thigh at times), Denies arthralgias, Denies joint swelling, Denies muscle weakness, Denies neck pain and Reports radiating pain into limb (into the R thigh at times) Skin/Breast Denies change in pigmentation, Denies lesions, Denies rash and Denies unusual bruising Neuro Denies dizziness, Denies headache(s), Denies paresthesias and Denies weakness Endo Denies fatigue and Denies palpitations Aller/Immun Denies itchy eyes and Denies wheezing Physical exam (Primary Care) Vital Signs: Last Vital Signs Pulse 97 12/08/24 13:48 BP 130/82 12/08/24 13:48 Pulse Ox 98 12/08/24 13:48 Oxygen Delivery Method Room Air 12/08/24 13:48 BMI result Body Mass Index 25.9 Tobacco/Smoking Status: Tobacco use Status Tobacco use date assessed 12/08/24 12/08/24 13:59 Patient Tobacco Use Status Never used Tobacco 12/08/24 13:59 e-Cigarette/Vaping Use Never Used 12/08/24 13:59 PHQ-9: PHQ-9 Score PHQ-9: Total score 5 12/08/24 14:28 Depression Screening Interpretation: Positive Depression Screening Follow-up: Existing condition and Follow-up Visit Requested Thrive Assessment: Date of Thrive Assessment Date Thrive assessed 12/08/24 12/08/24 13:59 Currently or been in a relationship where the following occur: No concerns reported Const General: no acute distress, alert and awake Orientation/consciousness: patient oriented x3 HENMT Head: Yes normocephalic and Yes atraumatic Ears: external ears normal, TM's normal bilaterally and EAC's normal General nose exam: No nasal discharge present Face and sinus: Yes normal facial exam and Yes sinuses nontender Teeth and gingiva: dentition normal Throat: Yes posterior oropharynx normal and Yes tonsils normal (no TP congestion) Eyes Eyelids: Yes eyelids normal Conjunctivae: conjunctivae normal Pupils: Equal, round and reactive pupils present EOM: EOMs intact bilaterally Neck Neck: Yes no lymphadenopathy and Yes supple Thyroid: Thyroid normal Resp Auscultation: clear to auscultation bilaterally, no rales and no wheezes Cardio Rate: regular rate Rhythm: regular rhythm Heart sounds: no murmurs GI Palpation (GI): Soft to palpation, nontender and No hepatosplenomegaly present Auscultation: normal bowel sounds General: Yes no CVA tenderness Back/Spine/Pelvis Back: no CVA tenderness Thoracic/Lumbar Spine: paraspinal muscle tenderness on the right in the mid lumbar and in the lower lumbar and lumbar spinal tenderness Skin Lesions: no lesions Rashes: no rashes Neuro General: patient oriented x3, moves all extremities, no focal motor deficits and CN's II-XI intact bilaterally Cranial nerves: Yes Equal, round and reactive pupils present Cognition (Neuro): normal cognition Gait exam (Neuro): Normal gait present Extrem General: Yes no clubbing, cyanosis or edema Results AMB Hemoglobin A1c AMB Hemoglobin A1c 11.4 % Last Edit by PRABHA Garcias on 12/08/24 14:21 Results Reviewed Results Reviewed: Laboratory Last Values Hgb A1c (Clinic) 11.4 % (4.0-6.0) H 12/08/24 14:19 Coding Level of Care Code Est Pt Prev Care 40-64y(46153) Diagnoses Annual physical exam Z00.00 Type 2 diabetes mellitus with hyperglycemia, without long-term current use of insulin E11.65 Diabetes mellitus chcf insulin use: without long term care phlebotomist use Pure hypercholesterolemia E78.00 Acute pain of both shoulders M25.511; M25.512 Chronicity: acute Chronic right-sided low back pain with right-sided sciatica M54.41; G89.29 Chronicity: chronic Insomnia, unspecified type G47.00 Insomnia type: unspecified Overweight (BMI 25.0-29.9) E66.3 Colonoscopy refused Z53.20 Additional Codes PHQ-9 - 46565 - PHQ-9 Billing: Yes ([id number]) Assessment & Plan Assessment & Plan (1) Annual physical exam: Code(s): Z00.00 - Encounter for general adult medical examination without abnormal findings Category: Medical Plan: Check labs Patient has declined and continues to decline a referral for a screening colonoscopy He also declines option of Cologuard testing (2) Type 2 diabetes mellitus with hyperglycemia: Code(s): E11.65 - Type 2 diabetes mellitus with hyperglycemia Category: Medical Qualifiers: Diabetes mellitus long term care phlebotomist insulin use: without chcf use Qualified Code(s): E11.65 - Type 2 diabetes mellitus with hyperglycemia Plan: His in-office HgbA1c today is at 11.4% (HgbA1c was at 10.3% on his labs done back in April 2024) - goal is at least <7.0% Reinforced diabetic diet - patient's states that he does not really comply with his diet and just tends to eat whatever he wants and whenever he wants to Continue Metformin 1000 mg BID and Farxiga 10 mg Q AM He used to take Trulicity 1.5 mg SQ once a week BUT he admitted to stopping his Trulicity on his own due to side effects - recalls that he often felt very tired and sleepy on the days that he took his Trulicity injection Patient also admits that he does not like injections and needles and prefers to avoid them as much as possible Will go ahead and refer patient to endocrinology for further evaluation and management and also for diabetic teaching and nutrition counseling as compliance (and language barrier) appear to be significant issues here (3) Pure hypercholesterolemia: Code(s): E78.00 - Pure hypercholesterolemia, unspecified Category: Medical Plan: Reinforced low cholesterol diet Will have patient go and get his fasting lipids rechecked RAGHAVENDRA Continue Atorvastatin 10 mg QD in the meantime Will have him recheck his labs and fasting lipids again in 3 months for follow up (4) Bilateral shoulder pain: Code(s): M25.511 - Pain in right shoulder; M25.512 - Pain in left shoulder Category: Medical Qualifiers: Chronicity: acute Qualified Code(s): M25.511 - Pain in right shoulder; M25.512 - Pain in left shoulder Plan: Left shoulder x-rays done back in April 2024 revealed (+) moderate acromioclavicular and minimal glenohumeral osteoarthritis, slightly progressed when compared to the prior examination. Enthesopathic spurring at the greater tuberosity, increased when compared to the prior examination Right shoulder x-rays showed (+) moderate acromioclavicular osteoarthritis He is advised that we can refer him to orthopedics for further management but patient asked to hold off on this as he is concerned that they may try to give him cortisone injections into his shoulder Have advised of option of physical therapy but we will wait until he gets his lower back pain worked up first (5) Right-sided low back pain with right-sided sciatica: Code(s): M54.41 - Lumbago with sciatica, right side Category: Medical Qualifiers: Chronicity: chronic Qualified Code(s): M54.41 - Lumbago with sciatica, right side; G89.29 - Other chronic pain Plan: Reinforced activity and weight-lifting restrictions Will send him again for x-rays of the lumbar spine for further evaluation - he did not get his x-rays done when they were ordered last year (6) Insomnia: Code(s): G47.00 - Insomnia, unspecified Category: Medical Qualifiers: Insomnia type: unspecified Qualified Code(s): G47.00 - Insomnia, unspecified Plan: Sleep hygiene reinforced Continue Trazodone 50 mg Q HS (7) Overweight (BMI 25.0-29.9): Code(s): E66.3 - Overweight Category: Medical Plan: Reinforced diet; exercise and weight loss are not realistic at this time due to his current symptoms (8) Colonoscopy refused: Code(s): Z53.20 - Procedure and treatment not carried out because of patient's decision for unspecified reasons Category: Medical Plan: Patient continues to decline offer to refer him for a screening colonoscopy He declines option of Cologuard testing as well Plan Follow up in 3 months Orders: Orders AMB Hemoglobin A1c 12/08/24 Z13.9 - Encounter for screening, unspecified Complete Blood Count Auto Diff 12/08/24 D64.9 - Anemia, unspecified, Z00.00 - Encounter for general adult medical examination without abnormal findings Lipid Panel 12/08/24 E78.00 - Pure hypercholesterolemia, unspecified, Z00.00 - Encounter for general adult medical examination without abnormal findings UA CC w/rflx Micro + Cult 12/08/24 R30.0 - Dysuria, Z00.00 - Encounter for general adult medical examination without abnormal findings Hemoglobin A1c 3 Months E11.9 - Type 2 diabetes mellitus without complications XR lumbar spine 2-3V 12/08/24 M54.41 - Lumbago with sciatica, right side Comprehensive [place]. Panel Fast 12/08/24 E78.00 - Pure hypercholesterolemia, unspecified, Z00.00 - Encounter for general adult medical examination without abnormal findings Microalbumin, Random (w Creat) 12/08/24 E11.9 - Type 2 diabetes mellitus without complications, Z00.00 - Encounter for general adult medical examination without abnormal findings TSH reflex Free T4 12/08/24 E78.00 - Pure hypercholesterolemia, unspecified, Z00.00 - Encounter for general adult medical examination without abnormal findings Vitamin B12 and Folate 12/08/24 E53.8 - Deficiency of other specified B group vitamins, Z00.00 - Encounter for general adult medical examination without abnormal findings Vitamin D 25-OH Total 12/08/24 E55.9 - Vitamin D deficiency, unspecified, Z00.00 - Encounter for general adult medical examination without abnormal findings Prostate Specific Antigen 12/08/24 N40.0 - Benign prostatic hyperplasia without lower urinary tract symptoms, Z00.00 - Encounter for general adult medical examination without abnormal findings Complete Blood Count Auto Diff 3 Months D64.9 - Anemia, unspecified Comprehensive [place]. Panel Fast 3 Months E78.00 - Pure hypercholesterolemia, unspecified Lipid Panel 3 Months E78.00 - Pure hypercholesterolemia, unspecified Microalbumin, Random (w Creat) 3 Months E11.9 - Type 2 diabetes mellitus without complications UA CC w/rflx Micro + Cult 3 Months R30.0 - Dysuria Referrals Endocrinology Referral E11.65 - Type 2 diabetes mellitus with hyperglycemia
== END 2024-12-08 14:43 | disposition home or self-care (01) ==
LOC: HO.HMCH 13:44
PROVIDERS: PCP Internal Medicine; Visit Provider Internal Medicine
DX: Z13.9 Encounter for screening, unspecified (principal)

== ENCOUNTER → 2024-12-08 13:44 | Outpatient (BNVA) | payer OTHER, SELFPAY | PROVIDERS: PCP Internal Medicine; Visit Provider Internal Medicine | DX: Z00.01 Encounter for general adult medical examination with abnormal findings (principal); E11.65 Type 2 diabetes mellitus with hyperglycemia; E78.00 Pure hypercholesterolemia, unspecified; M25.511 Pain in right shoulder; M25.512 Pain in left shoulder; M54.41 Lumbago with sciatica, right side; G89.29 Other chronic pain; G47.00 Insomnia, unspecified; E66.3 Overweight; E55.9 Vitamin D deficiency, unspecified; N40.0 Benign prostatic hyperplasia without lower urinary tract symptoms; D64.9 Anemia, unspecified; Z68.25 Body mass index [BMI] 25.0-25.9, adult | CPT/HCPCS: 83036; 96127; 99396 ==

== ENCOUNTER 2024-12-12 08:56 | Emergency (ER) | payer OTHER, SELFPAY ==
[2024-12-12 09:02] VITALS: BP 154/91; PULSE 81; RESP 18; TEMP 36; O2SAT 97; BMI 26.4
--- NOTE | 2024-12-12 12:32 | PC.NURSE ---
no call for bed from waitingroom
--- NOTE | 2024-12-12 12:46 | PC.NURSE ---
no call from bed from waiting room
--- NOTE | 2024-12-12 12:54 | PC.NURSE ---
no call from waiting room
== END 2024-12-12 13:29 | disposition left against medical advice (07) ==
LOC: HO.ED 13:00
PROVIDERS: Emergency Provider Emergency Medicine; PCP Internal Medicine
DX: M54.50 Low back pain, unspecified (principal); Z53.21 Procedure and treatment not carried out due to patient leaving prior to being seen by health care provider
CPT/HCPCS: 99281

== ENCOUNTER 2024-12-13 08:22 | Outpatient (REF) | payer OTHER, SELFPAY ==
--- NOTE | ~2024-12-13 | XR_ITS ---
EXAMINATION: XR LUMBOSACRAL SPINE CLINICAL INFORMATION: M54.41 - Lumbago with sciatica, right side COMPARISON: June 02, 2017. TECHNIQUE: Three views of the lumbosacral spine. FINDINGS: Endplate sclerosis marginal osteophyte formation and decreased intervertebral disc height at L5-S1 and to a lesser extent L1 to. No acute cortical disruption or malalignment. No lytic or blastic lesions. XR/XR lumbar spine 2-3V IMPRESSION: Spondylosis L5-S1. No gross change. Electronically signed by: Azeem Cedillo MD 12/13/2024 08:58 AM EDT
[2024-12-13 08:43] LABS: MANUAL DIFF FLAG NO
[2024-12-13 09:03] LABS: Basophils Percent Auto 0.6 % (0-2); Eosinophils Absolute Auto 0.1 X10*3/uL (0.0-0.4); Hematocrit 42.3 % (42.0-52.0); Hemoglobin 15.2 g/dl (14.0-18.0); Imm Gran Abs Auto 0.03 X10*3/uL (0.00-0.03); Imm Gran Pct Auto 0.5 % (0.0-0.4); Lymphocytes Absolute Auto 1.8 X10*3/uL (1.2-4.9); Lymphocytes Percent Auto 28.1 % (20-40); Mean Corpuscular HGB Conc 35.9 g/dl (31.0-36.0); Mean Corpuscular Hemoglobin 30.5 pg (27.0-33.0); Mean Corpuscular Volume 84.9 fL (80.0-98.0); Mean Platelet Volume 11.4 fL (9.4-12.4); Monocytes Absolute Auto 0.5 X10*3/uL (0.1-1.2); Monocytes Percent Auto 7.8 % (2-11); Neutrophils Absolute Auto 3.9 x10*3/uL (2.0-8.3); Platelet Count 178 X10*3/uL (160-400); Red Blood Count 4.98 X10*6/uL (4.60-5.80); Red Cell Distribution Width 12.3 % (11.0-16.0); White Blood Count 6.3 X10*3/uL (4.8-10.8)
[2024-12-13 09:13] LABS: Appearance Urine Clear; Color Urine Yellow; Glucose Urine UA >=1000 mg/dL (Negative); Leukocyte Esterase Urine Negative (Negative); Nitrite Urine Negative (Negative); Specific Gravity - Urine >= 1.030 (1.005-1.025); UMIC TRIGGER UACC YES; Urine Blood Negative (Negative); Urine Ketones Negative (Negative); Urine Protein Negative (Neg-Trace)
[2024-12-13 09:28] LABS: Bacteria Urine None Seen (None Seen); Hyaline Casts Urine 0-2 /LPF (0-2); RBC Urine 0-2 /HPF (0-2); Squamous Epithelial Cell Urine 0-2 /HPF (0-2); WBC Urine 0-5 /HPF (0-5)
[2024-12-13 09:51] LABS: Erythrocyte Sedimentation Rate 7 MM/HR (0-15)
[2024-12-13 09:52] LABS: Alanine Aminotransferase 24 U/L (0-40); Albumin Level 4.3 g/dL (3.5-5.0); Alkaline Phosphatase 86 U/L (39-117); Anion Gap 12 (12-20); Aspartate Amino Transferase 17 U/L (5-37); Bilirubin Total 0.5 mg/dL (0.0-1.0); Blood Urea Nitrogen 12 mg/dL (9-16); Calcium 9.4 mg/dL (8.4-10.2); Carbon Dioxide 26 mmol/L (22-29); Chloride 105 mmol/L (96-108); Cholesterol 209 mg/dL (<200); Estimated Glomerular Filt Rate > 60; Glucose Fasting 293 mg/dL (60-99); HDL Cholesterol 37 mg/dL (>40); LDL Cholesterol Calculated 144 mg/dL (<100); Potassium 3.9 mmol/L (3.3-5.1); Sodium 139 mmol/L (135-145); Total Protein 7.3 g/dL (6.5-8.0); Triglycerides 141 mg/dL (<150)
[2024-12-13 09:54] LABS: Estimated Average Glucose 272 mg/dL; Hemoglobin A1C 380.4292 umol/L; Hemoglobin A1c % 11.1 % (<6.0); Total Hemoglobin (HGBA1C) 3899.5317 umol/L
[2024-12-13 09:58] LABS: TSH reflex Free T4 1.91 uIU/mL (0.32-4.0); Vitamin D 25-OH Total 20.1 ng/mL (>30)
[2024-12-13 10:15] LABS: Folate 12.9 ng/mL (> or = 4.0); Prostate Specific Antigen 0.54 ng/mL (<0.05-4.0); Vitamin B12 313 pg/mL (200-900)
== END 2024-12-13 08:23 | disposition home or self-care (01) ==
LOC: HO.LAB 08:22
PROVIDERS: PCP Internal Medicine; Visit Provider Internal Medicine
DX: Z00.00 Encounter for general adult medical examination without abnormal findings (principal); E11.9 Type 2 diabetes mellitus without complications; E78.00 Pure hypercholesterolemia, unspecified; D64.9 Anemia, unspecified; E55.9 Vitamin D deficiency, unspecified; E53.8 Deficiency of other specified B group vitamins; N40.0 Benign prostatic hyperplasia without lower urinary tract symptoms; M54.41 Lumbago with sciatica, right side
CPT/HCPCS: 36415; 72100; 80053; 80061; 81001; 82043; 82306; 82570; 82607; 82746; 83036; 84153; 84443; 85025; 85652

== ENCOUNTER → 2024-12-13 08:47 | Outpatient (BNV) | payer OTHER, SELFPAY | PROVIDERS: PCP Internal Medicine; Visit Provider Radiology Diagnostic Radiology | DX: M54.41 Lumbago with sciatica, right side (principal) | CPT/HCPCS: 72100 ==

== ENCOUNTER 2024-12-20 14:01 | Outpatient (AMB) | payer OTHER, SELFPAY ==
--- NOTE | 2024-12-20 14:02 | A.OFFVIS_ITS ---
Vital Signs 12/20/24 14:03 Height 5 ft 10 in Weight 187 lb 2.759 oz BMI 26.9 BP 136/74 Blood Pressure Location Lt brachial Position Sitting Pulse 80 Pulse Source Pulse Oximeter Pulse Oximetry (%) 96 Oxygen Delivery Method Room Air Intake Visit Reasons: Type 2 diabetes mellitus with hyperglycemia Intake Note: NEW Patient presents today to establish treatment for Type 2 Diabetes Mellitus: Last Diabetic eye exam was on: 02/2024 has upcoming appt in February 2025 Last Podiatry exam was on: Patient does not see a Welding Equipment Repairer Most recent HbA1c: 11.1% 12/13/2024 Random Glucose- 442 mg/dL @2:10pm Heel Slicker Required: Yes Heel Slicker Language: Sex Worker Or Escort Services: Heel Slicker Present Heel Slicker Name: Brandy [id number] Information Interpreted: non-clinical & clinical Accompanied by: Spouse Allergies No Known Allergies [No Known Allergies*] Allergy (Verified 12/20/24 14:08) HPI Comments Details: 56 YO M who is seen in consultation for T2DM at the request of PCP. Medical history: Insomnia, headaches, back pain Initially diagnosed with T2DM in 5 years ago Was initially started on treatment with metformin. Current regimen: Metformin 1000 mg BID-frequently missing evening dose Farxiga 10mg (not taking) Does not checks sugars-has no glucometer. BG is 442 today. Feels well. Last A1C 11.1% one week ago Family history of T2DM in brothers and sisters have Type 2 M. Does not Has eyes checked yearly, last eye exam yrs ago , denies retinopathy. Denies neuropathy but has tingling , last foot exam ,does not sees podiatry. Denies nephropathy, Not on [place]/ARB Has HLD, on statin. Denies CAD. Had no diabetes education-was referred in past ROS CONSTITUTIONAL: Denies weight loss, fever and chills. HEENT: Denies changes in vision and hearing. RESPIRATORY: Denies SOB and cough. CV: Denies palpitations and CP GI: Denies abdominal pain, nausea, vomiting and diarrhea. : Denies dysuria and urinary frequency. MSK: Denies new myalgia and joint pain. SKIN: Denies rash and pruritus. NEUROLOGICAL: Denies headache PSYCHIATRIC: Denies recent changes in mood. PHYSICAL EXAM: GENERAL: Alert and oriented x 3. NAD EYES: EOMI. Anicteric. HENT: Moist mucous membranes. No scleral icterus. No cervical lymphadenopathy. LUNGS: Clear to auscultation bilaterally. CARDIOVASCULAR: Regular rate and rhythm. No murmur. No JVD. ABDOMEN: Soft, non-tender +bs EXTREMITIES: No edema. Non-tender. SKIN: No rashes or lesions. Warm. NEUROLOGIC: No focal neurological deficits. CN II-XII grossly intact PSYCHIATRIC: Cooperative. Appropriate mood and affect [facility] Medical History Colonoscopy refused Erectile dysfunction associated with type 2 diabetes mellitus Left sciatic nerve pain Hypovitaminosis D Pure hypercholesterolemia Overweight (BMI 25.0-29.9) Type 2 diabetes mellitus with hyperglycemia Surgical History No pertinent past surgical history Family History Brother Diabetes mellitus Sister Diabetes mellitus Mother Diabetes mellitus Father Medical history unknown Social History Household Members: Family Housing: Apartment Alcohol intake: former Patient Tobacco Use Status: Never used Tobacco e-Cigarette/Vaping Use: Never Used Second Hand Smoke Exposure: Yes Advance Directives Date on File: 05/08/22 service: No Current occupational status: unemployed and disabled Cognitive needs: No Hearing needs: No Vision needs: No Physical Exam Vital Signs: Last Vital Signs Pulse 80 12/20/24 14:03 BP 136/74 12/20/24 14:03 Pulse Ox 96 12/20/24 14:03 Oxygen Delivery Method Room Air 12/20/24 14:03 BMI result Body Mass Index 26.9 Assessment & Plan Assessment & Plan (1) Type 2 diabetes mellitus with hyperglycemia: Code(s): E11.65 - Type 2 diabetes mellitus with hyperglycemia Category: Medical Qualifiers: Diabetes mellitus nursing home insulin use: without intermediate teacher use Qualified Code(s): E11.65 - Type 2 diabetes mellitus with hyperglycemia (2) Erectile dysfunction associated with type 2 diabetes mellitus: Code(s): E11.69 - Type 2 diabetes mellitus with other specified complication; N52.1 - Erectile dysfunction due to diseases classified elsewhere Category: Medical Plan Uncontrolled Patient is scared of needles, injections Discussed need to check glucose once daily at least Change metformin to XR so he can take it all in the morning Start actos 30mg daily Will see in 2 weeks and add glipizide likely Medications: New metformin ER 2,000 mg (4 x 500 mg) PO DAILY 360 tabs 3RF pioglitazone 30 mg PO DAILY 90 tabs 3RF Changed From lancets (FreeStyle Lancets) As directed-to test blood sugar two times a day. 100 ea 5RF E11.65 - Type 2 diabetes mellitus with hyperglycemia To lancets (FreeStyle Lancets) once daily 100 ea 5RF E11.65 - Type 2 diabetes mellitus with hyperglycemia From FreeStyle Lite Meter (blood-glucose meter) As directed- to test blood sugar two times a day. 1 ea 0RF NS E11.65 - Type 2 diabetes mellitus with hyperglycemia To FreeStyle Lite Meter (blood-glucose meter) once daily and as needed 1 ea 0RF NS E11.65 - Type 2 diabetes mellitus with hyperglycemia From FreeStyle Lite Strips (blood sugar diagnostic) As directed-to test blood sugar two times a day. 100 ea 5RF NS E11.65 - Type 2 diabetes mellitus with hyperglycemia To FreeStyle Lite Strips (blood sugar diagnostic) once daily 100 ea 5RF NS E11.65 - Type 2 diabetes mellitus with hyperglycemia Discontinued dapagliflozin propanediol (Farxiga) Discontinued Reason: Doctor's Order 10 mg PO QAM 90 days 90 tabs 1RF metformin Discontinued Reason: Doctor's Order 1,000 mg PO BID 30 days 60 tabs 2RF Coding Level of Care Code New Pt Level 4 (76118) Diagnoses Type 2 diabetes mellitus with hyperglycemia, without long-term current use of insulin E11.65 Diabetes mellitus nursing home insulin use: without nursing home use Erectile dysfunction associated with type 2 diabetes mellitus E11.69; N52.1
[2024-12-20 14:03] VITALS: BP 136/74; PULSE 80; O2SAT 96; BMI 26.9
[2024-12-20 14:15] LABS: Glucose, Whole Blood 442 mg/dL (60-115)
== END 2024-12-20 14:29 | disposition home or self-care (01) ==
LOC: HO.ENCR 14:02
PROVIDERS: PCP Internal Medicine; Visit Provider Internal Medicine
DX: E11.65 Type 2 diabetes mellitus with hyperglycemia (principal); E11.69 Type 2 diabetes mellitus with other specified complication; N52.1 Erectile dysfunction due to diseases classified elsewhere

== ENCOUNTER → 2024-12-20 14:01 | Outpatient (BNVA) | payer OTHER, SELFPAY | PROVIDERS: PCP Internal Medicine; Visit Provider Internal Medicine | DX: E11.65 Type 2 diabetes mellitus with hyperglycemia (principal); E11.69 Type 2 diabetes mellitus with other specified complication; N52.1 Erectile dysfunction due to diseases classified elsewhere; Z79.84 Long term (current) use of oral hypoglycemic drugs | CPT/HCPCS: 82947; 99202 ==

== ENCOUNTER 2025-03-20 14:37 | Outpatient (AMB) | payer OTHER, SELFPAY ==
--- NOTE | 2025-03-20 14:38 | MHC.PC.OV ---
Vital Signs 03/20/25 14:39 Height 5 ft 10 in Weight 179 lb 6 oz BMI 25.7 BP 142/80 H Blood Pressure Location Lt brachial Position Sitting Pulse 80 Pulse Source Pulse Oximeter Pulse Oximetry (%) 98 Oxygen Delivery Method Room Air Intake Visit Reasons: uncontrolled DM, low back pain/ A1C needed Rn Lactation Consultant Required: No Accompanied by: Self / Same As Patient Allergies No Known Allergies (No Known Allergies*) Allergy (Verified 03/20/25 15:16) Medication List - Last Reconciled 03/20/25 by Mahesh Mari MD atorvastatin 10 mg PO DAILY [id number] 50-300-40 mg (Fioricet) 1 cap PO Q6H PRN cyclobenzaprine 10 mg PO TID PRN FreeStyle Lite Meter (blood-glucose meter) once daily and as needed NS FreeStyle Lite Strips (blood sugar diagnostic) once daily NS lancets (FreeStyle Lancets) once daily lidocaine 5% 1 patch topical DAILY PRN 30 days meloxicam 15 mg PO DAILY metformin ER 2,000 mg (4 x 500 mg) PO DAILY nystatin 1 appl topical TID 10 days pioglitazone 30 mg PO DAILY trazodone 50 mg PO BEDTIME PRN 30 days Tobacco use date assessed: 03/20/25 Dental Screening Dental Screen Date: 03/20/25 COUNTS INCLUDE 234 BEDS AT THE [facility] Medical History Colonoscopy refused Erectile dysfunction associated with type 2 diabetes mellitus Left sciatic nerve pain Hypovitaminosis D Pure hypercholesterolemia Overweight (BMI 25.0-29.9) Type 2 diabetes mellitus with hyperglycemia Surgical History No pertinent past surgical history Family History Brother Diabetes mellitus Sister Diabetes mellitus Mother Diabetes mellitus Father Medical history unknown Social History Household Members: Family Housing: Apartment Alcohol intake: former Patient Tobacco Use Status: Never used Tobacco e-Cigarette/Vaping Use: Never Used Second Hand Smoke Exposure: Yes Advance Directives Date on File: 05/08/22 service: No Current occupational status: unemployed and disabled Cognitive needs: No Hearing needs: No Vision needs: No Questionnaire PHQ-9 Over the last 2 weeks, how often have you been bothered by any of the following problems? 1. Little interest or pleasure in doing things: nearly every day 2. Feeling down, depressed, or hopeless: not at all 3. Trouble falling or staying asleep, or sleeping too much: several days 4. Feeling tired or having little energy: several days 5. Poor appetite or overeating: not at all 6. Feeling bad about yourself - or that you are a failure or have let yourself or your family down: not at all 7. Trouble concentrating on things, such as reading the newspaper or watching television: not at all 8. Moving or speaking so slowly that other people could have noticed. Or the opposite - being so fidgety or restless that you have been moving around a lot more than usual: not at all 9. Thoughts that you would be better off or of hurting yourself in some way: not at all Total score: 5 Depression Screening Interpretation: Positive Depression Screening Follow-up: Existing condition and Follow-up Visit Requested Depression Screening Done: Yes Source: Developed by Drs. Marcos Ogden, Irais Louie, Evert Stephens and colleagues, with an educational les from [employer]. Thrive Questionnaire Date Thrive assessed: 03/20/25 I am a: Patient What is your living situation today?: I have a steady place to live Within the past 12 months, did the food you bought not last and you didn't have the money to get more?: I choose not to answer this question Within the past 12 months, did you worry whether your food would run out before you got money to buy more?: I choose not to answer this question Do you have trouble paying for medicines?: No Do you have trouble getting transportation to medical appointments?: No Do you have trouble paying your heating and electricity bill?: No Do you have trouble taking care of your child, family member or friend?: No Do you have trouble with day-to-day activities such as bathing, preparing meals, shopping, managing finances, etc.?: No Are you currently unemployed and looking for a job?: No Are you interested in more education?: No Please select the resources that you would like help with: None Currently or been in a relationship where the following occur: No concerns reported THRIVE Score: 0 AUDIT C Alcohol Use Questionnaire (AUDIT-C) 1. How often do you have a drink containing alcohol?: Monthly or less 2. How many drinks containing alcohol do you have on a typical day when you are drinking?: 1 or 2 3. How often do you have six or more drinks on one occasion?: Never Total Score: 1 Score Reviewed/Action Taken: Yes VALARIE-7 AMB Questionnaire VALARIE-7 Date VALARIE - 7 assessed: 03/20/25 Feeling nervous, anxious, or on edge: 0 = Not at all Not being able to stop or control worryin = Not at all Worrying too much about different things: 0 = Not at all Trouble relaxin = Not at all Being so restless that it is hard to sit still: 0 = Not at all Becoming easily annoyed or irritable: 0 = Not at all Feeling afraid as if something awful might happen: 0 = Not at all Total VALARIE-7 score (0-4 normal; 5-9 mild; 10-14 moderate; 15-21 severe): 0 Source: Developed by Drs. Marcos Ogden, Irais Louie, Evert Stephens and colleagues, with an educational les from [employer]. Physical exam (Primary Care) Vital Signs: Last Vital Signs Pulse 80 03/20/25 14:39 BP 142/80 H 03/20/25 14:39 Pulse Ox 98 03/20/25 14:39 Oxygen Delivery Method Room Air 03/20/25 14:39 BMI result Body Mass Index 25.7 Tobacco/Smoking Status: Tobacco use Status Tobacco use date assessed 03/20/25 03/20/25 14:45 Patient Tobacco Use Status Never used Tobacco 03/20/25 14:45 e-Cigarette/Vaping Use Never Used 03/20/25 14:45 PHQ-9: PHQ-9 Score PHQ-9: Total score 5 03/20/25 15:02 Depression Screening Interpretation: Positive Depression Screening Follow-up: Existing condition and Follow-up Visit Requested Thrive Assessment: Date of Thrive Assessment Date Thrive assessed 03/20/25 03/20/25 14:45 Currently or been in a relationship where the following occur: No concerns reported Results AMB Hemoglobin A1c AMB Hemoglobin A1c 10.9 % Last Edit by PRABHA Garcias on 03/20/25 15:02 Results Reviewed Results Reviewed: Laboratory Last Values Hgb A1c (Clinic) 10.9 % (4.0-6.0) H 03/20/25 15:01 Coding Assessment & Plan Assessment & Plan Orders: Orders AMB Hemoglobin A1c Today Z13.9 - Encounter for screening, unspecified Medications: New rosuvastatin 10 mg PO DAILY 30 tabs 3RF 30 days lisinopril 5 mg PO DAILY 30 tabs 3RF 30 days Refilled metformin 1,000 mg PO BID 60 tabs 3RF 30 days Discontinued atorvastatin Discontinued Reason: Doctor's Order 10 mg PO DAILY 90 tabs 1RF metformin ER Discontinued Reason: Doctor's Order 2,000 mg (4 x 500 mg) PO DAILY 360 tabs 3RF pioglitazone Discontinued Reason: Doctor's Order 30 mg PO DAILY 90 tabs 3RF
[2025-03-20 14:39] VITALS: BP 142/80; PULSE 80; O2SAT 98; BMI 25.7
== END 2025-03-20 15:32 | disposition home or self-care (01) ==
LOC: HO.HMCH 14:37
PROVIDERS: PCP Internal Medicine; Visit Provider Internal Medicine
DX: Z13.9 Encounter for screening, unspecified (principal)

== ENCOUNTER → 2025-03-20 14:37 | Outpatient (BNVA) | payer OTHER, SELFPAY | PROVIDERS: PCP Internal Medicine; Visit Provider Internal Medicine | DX: E11.65 Type 2 diabetes mellitus with hyperglycemia (principal); E78.00 Pure hypercholesterolemia, unspecified; I10 Essential (primary) hypertension; M25.511 Pain in right shoulder; M25.512 Pain in left shoulder; M54.41 Lumbago with sciatica, right side; G89.29 Other chronic pain; G47.00 Insomnia, unspecified; E66.3 Overweight; Z68.25 Body mass index [BMI] 25.0-25.9, adult; Z79.84 Long term (current) use of oral hypoglycemic drugs | CPT/HCPCS: 83036; 96127; 99212 ==